=== PATIENT | male | born 1975 | race Caucasian/White ===

== ENCOUNTER 2022-08-04 00:26 | Inpatient (IN) | payer MEDICARE, MEDICAID, SELFPAY ==
[2022-08-04] VITALS (29 sets, daily range): BP systolic 102–155; BP diastolic 53–86; PULSE 111–147; RESP 16–35; TEMP 36.4–38.1; O2SAT 91–99; BMI 34.0; BMI 38.9
--- NOTE | 2022-08-04 | DI.RAD.S_ITS ---
PROCEDURE: XR HIP W PEL IF DONE LT 2V INDICATIONS: OR SURGERY TECHNIQUE: 17 intraoperative views of the hip were acquired. COMPARISON: [facility], [place], XR HIP W PEL IF DONE LT 2V, 08/04/2022, 7:03. FINDINGS/IMPRESSION: Expected postsurgical changes of the left hip status post surgical fixation of previously noted intertrochanteric fracture. Alignment is near anatomic. Hardware appears appropriately positioned without evidence of immediate complication. Dictated by: Abelardo Ramires D.O. on 08/04/2022 at 14:29 Approved by: Abelardo Ramires D.O. on 08/04/2022 at 14:31
--- NOTE | 2022-08-04 | DI.RAD.S_ITS ---
PROCEDURE: XR ELBOW LT 2V INDICATIONS: OR SURGERY TECHNIQUE: 9 intraoperative views of the elbow were acquired. COMPARISON: [facility], [place], XR ELBOW LT 2V, 08/04/2022, 2:26. FINDINGS/IMPRESSION: Intraoperative fixation of the previously dislocated elbow now in near anatomic position. Questionable fracturing of the radial head. Additional calcification along the coronoid process may represent additional fracture. Consider dedicated elbow radiographs status post reduction. Postsurgical changes of the radius and ulna status post remote fracturing. Dictated by: Abelardo Ramires D.O. on 08/04/2022 at 14:31 Approved by: Abelardo Ramires D.O. on 08/04/2022 at 14:33
--- NOTE | 2022-08-04 00:52 | DI.RAD.S_ITS ---
PROCEDURE: XR FOREARM LT 2V INDICATIONS: pain after fall TECHNIQUE: 2 views of the forearm were acquired. COMPARISON: None. FINDINGS: Bones: Posterior dislocation of the elbow, with the radial head and proximal ulna located posterior to the capitellum and trochlea respectively. Small fracture fragment anterior to the elbow is most likely a coronoid process fracture. Postsurgical changes are seen from prior radial and ulnar shaft fracture fixations with intact hardware. Soft tissues: No suspicious soft tissue calcifications or masses. IMPRESSION: Posterior dislocation of the elbow. Suspected coronoid process fracture. Recommend correlation with postreduction images. Approved by: Michael Scott M.D. on 08/04/2022 at 2:18
--- NOTE | 2022-08-04 00:52 | DI.RAD.S_ITS ---
PROCEDURE: XR FEMUR LT MIN 2V INDICATIONS: pain after fall TECHNIQUE: 5 views of the femur were acquired. COMPARISON: None. FINDINGS: Bones: Acute fracture through intertrochanteric region of left proximal femur is seen with superior migration of femoral shaft in relation to femoral head. No other fracture or dislocation. No suspicious bony lesions. Soft tissues: No suspicious soft tissue calcifications or masses. IMPRESSION: Acute displaced left intertrochanteric fracture as above. No significant discrepancies from preliminary reading. Dictated by: Thiago Barahona M.D. on 08/04/2022 at 7:30 Approved by: Thiago Barahona M.D. on 08/04/2022 at 7:30
--- NOTE | 2022-08-04 01:36 | ED.FALL ---
HPI - Fall General Chief Complaint: Fall Stated Complaint: Fall earlier today, L side pain Time Seen by Provider: 08/04/22 00:51 Source: patient and family Mode of arrival: Wheelchair Limitations: no limitations History of Present Illness HPI Narrative: Patient is a 46-year-old male. Has a history of a developmental disorder and also autism. He does ambulate on his own at home. Yesterday sustained a fall where he landed on his left side. There was no loss of consciousness. He is had extreme pain on his left arm and left leg since the time. There was no loss of consciousness. There was an extended period of time trying to get him up off the floor however when they were able to stand him up he got up put any weight on his left side. He did arrive by private vehicle. Patient has developmental difficulties so it is difficult for him to expressed exactly what is going on but he does have pain all down his left arm in his left leg. Related Data Allergies Allergy/AdvReac Type Severity Reaction Status Date / Time No Known Drug Allergies Allergy Verified 08/04/22 01:46 Review of Systems Constitutional Constitutional: Reports system reviewed and no additional complaints, except as documented Musculoskeletal Musculoskeletal: Reports system reviewed and no additional complaints, except as documented Integumentary/Breasts Skin/Breast: Reports system reviewed and no additional complaints, except as documented Hematologic/Lymphatic On Anticoagulants: No Patient History Medical History Autism Hardik-Taybi syndrome Exam Initial Vital Signs Initial Vital Signs: Vital Signs Temperature 98.7 F 08/04/22 00:40 Pulse Rate 126 H 08/04/22 00:40 Respiratory Rate 16 08/04/22 00:40 Blood Pressure 133/75 08/04/22 00:40 Pulse Oximetry 95 08/04/22 00:40 Oxygen Delivery Method Room Air 08/04/22 00:40 Const General: cooperative HENMT Head: normal to inspection and normocephalic Resp Effort & Inspection: normal respiratory effort Auscultation: clear to auscultation bilaterally Cardio Rate: regular rate Rhythm: regular rhythm Skin General: no rashes or lesions noted Neuro General: patient alert and patient awake Extrem Other: Patient with significant discomfort to palpation of his left upper arm and elbow and left forearm and also left wrist. The same for his left hip and left knee. His left ankle is unremarkable. His right upper and lower extremities are unremarkable. Course Orders Ordered: ED Orders 08/04/22 00:52 XR femur LT min 2V Stat XR forearm LT 2V Stat 08/04/22 02:14 XR elbow LT 2V Stat XR wrist LT min 3V Stat 08/04/22 05:00 Basic Metabolic Panel Stat Complete Blood Count AUTO DIFF Stat 08/04/22 06:49 XR hip w pel if done LT 2V Stat Sodium Chloride (Normal Saline 0.9%) 1,000 mls @ 125 mls/hr IV CONT LELAND Discontinued Medications Hydrocodone Bitart/Acetaminophen (Hydrocodone/Acet 5/325 Tablet) 1 tab PO NOW ONE Stop: 08/04/22 01:38 Last Admin: 08/04/22 01:43 Dose: 1 tab Documented By: ANA Propofol (Propofol 200 Mg/20 Ml Vial) 100 mg IV NOW ONE Stop: 08/04/22 03:41 Vital Signs Vital signs: Vital Signs - 8 hr 08/04/22 00:40 Temperature 98.7 F Pulse Rate 126 H Respiratory Rate 16 Blood Pressure 133/75 Pulse Oximetry 95 Oxygen Delivery Method Room Air MDM - Fall Lab Data Attestation: I reviewed the patient's lab results. 08/04/22 05:00 08/04/22 05:00 Labs: Lab Results 08/04/22 08/04/22 Range/Units 05:00 05:00 WBC 28.2 H (4.5-11.0) X10^3/uL RBC 4.95 (4.5-5.9) X10^6/uL Hgb 15.2 (13.5-17.5) g/dL Hct 44.7 (41-53) % MCV 90.3 (80-100) fL MCH 30.7 (26-34) PG MCHC 34.0 (30-36) % RDW 13.8 (11.6-14.8) % Plt Count 244 (150-400) X10^3/uL Neut % (Auto) Not Reportable Lymph % (Auto) Not Reportable [place] % (Auto) Not Reportable Eos % (Auto) Not Reportable Baso % (Auto) Not Reportable Lymph # (Auto) Not Reportable [place] # (Auto) Not Reportable Baso # (Auto) Not Reportable Total Counted 100 Seg Neutrophils % 77.0 H (38-70) % Band Neutrophils % 1.0 L (3-7) % Lymphocytes % (Manual) 19.0 L (25-45) % Monocytes % (Manual) 3.0 (2-11) % Neutrophils # (Manual) 12232 H (9709-3331) /uL RBC Morphology Normal morphology Sodium 138 (137-145) mmol/L Potassium 4.2 (3.4-5.1) mmol/L Chloride 100 (98-107) mmol/L Carbon Dioxide 27 (22-32) mmol/L BUN 13 (9-20) mg/dL Creatinine 0.59 L (0.66-1.25) mg/dL Estimated GFR > 60 (>60) mL/min BUN/Creatinine Ratio 22.0 (6-22) Glucose 119 H (70-100) mg/dL Calcium 9.5 (8.4-10.2) mg/dL Imaging Data Femur X-ray: Radiologist's Impression: PROCEDURE:? XR FEMUR LT MIN 2V ? INDICATIONS:? pain after fall ? TECHNIQUE:? 5 views of the femur were acquired.? ? COMPARISON:? None. ? FINDINGS:? ? Bones:? Acute fracture through intertrochanteric region of left proximal femur is seen with superior migration of femoral shaft in relation to femoral head.? No other fracture or dislocation.? No suspicious bony lesions.? ? Soft tissues:? No suspicious soft tissue calcifications or masses.? ? IMPRESSION:? Acute displaced left intertrochanteric fracture as above. ? No significant discrepancies from preliminary reading.? forearm X-ray: Radiologist's Impression: PROCEDURE:? XR FOREARM LT 2V ? INDICATIONS:? pain after fall ? TECHNIQUE:? 2 views of the forearm were acquired.? ? COMPARISON:? None. ? FINDINGS:? ? Bones:? Posterior dislocation of the elbow, with the radial head and proximal ulna located posterior to the capitellum and trochlea respectively.? Small fracture fragment anterior to the elbow is most likely a coronoid process fracture.? Postsurgical changes are seen from prior radial and ulnar shaft fracture fixations with intact hardware. ? Soft tissues:? No suspicious soft tissue calcifications or masses.? ? IMPRESSION:? Posterior dislocation of the elbow.? Suspected coronoid process fracture.? Recommend correlation with postreduction images. elbow x-ray: Radiologist's Impression: PROCEDURE:? XR ELBOW LT 2V ? INDICATIONS:? pain after fall ? TECHNIQUE:? 2 views of the elbow were acquired.? ? COMPARISON:? None. ? FINDINGS:? ? Bones:? There is prior fixation of proximal radial and ulnar shafts.? Dorsal dislocation at elbow joint is seen.? Cortical irregularity involving radial head is seen suggestive of radial head/neck fracture.? There is also likely fracture involving coronary process of proximal olecranon..? No suspicious bony lesions.? ? Soft tissues:? Large elbow joint effusion.? No suspicious soft tissue calcifications.? ? ? IMPRESSION:? Elbow fracture and dislocation as above. wrist x-ray: Radiologist's Impression: PROCEDURE:? XR WRIST LT MIN 3V ? INDICATIONS: pain after fall ? TECHNIQUE:? 3 views of the wrist were acquired.? ? COMPARISON:? None. ? FINDINGS:? ? Bones:? No fractures or dislocations.? Osteoarthritic changes throughout wrist joints are seen.? No suspicious bony lesions.? ? Soft tissues:? No suspicious soft tissue calcifications.? ? IMPRESSION:? No gross acute left wrist fracture or dislocation.? Left wrist joint osteoarthritis. ? No discrepancies. hip x-ray: Radiologist's Impression: PROCEDURE:? XR HIP W PEL IF DONE LT 2V ? INDICATIONS:? L fem neck fracture ? TECHNIQUE:? AP pelvis with lateral view(s) of the left hip(s).? ? COMPARISON:? None. ? FINDINGS:? ? Bones:? Acute fracture through intertrochanteric region of left proximal femur is seen with superior migration of femoral shaft in relation to femoral head.? No evidence of avascular necrosis of femoral head.? Pelvic ring appears intact.? No suspicious bony lesions.? ? Soft tissues:? The visualized bowel gas pattern is normal.? No suspicious soft tissue calcifications.? ? ? IMPRESSION:? Acute displaced intertrochanteric fracture of left proximal femur as above.? MDM Narrative Medical decision making narrative: Initially very difficult to pinpoint exactly where his discomfort was as he seems to have discomfort all throughout his left arm in his left hip. It was difficult to get him out of the wheelchair into the bed. He required pain medication before we can do this. Once he was in the bed he seemed to be much more comfortable. X-ray show what appears to a left elbow dislocation with associated fracture. He also has a left femoral neck fracture. The plan was to provide sedation and reduction of the left elbow fracture here in the emergency department however we were unable to do so given the amount of patient's and staffing. I discussed the case with Dr. Gordon on-call for Orthopedic surgery came to evaluate the patient in the emergency department in the plan as to take him to operating up to reduce his elbow and also fixes left hip. I then discussed the case with Dr. Carter hospitalist on-call who will admit for further evaluation and treatment as well. Discharge Plan Departure Patient Disposition: Admitted As Inpatient Clinical Impression: Closed fracture of neck of left femur, Dislocation of left elbow Admit Date/Time: 08/04/22 08:16
[2022-08-04] MEDS: HYDROCODONE/ACET 5/325 TABLET 1 TAB PO (01:43)
--- NOTE | 2022-08-04 02:14 | DI.RAD.S_ITS ---
PROCEDURE: XR WRIST LT MIN 3V INDICATIONS: pain after fall TECHNIQUE: 3 views of the wrist were acquired. COMPARISON: None. FINDINGS: Bones: No fractures or dislocations. Osteoarthritic changes throughout wrist joints are seen. No suspicious bony lesions. Soft tissues: No suspicious soft tissue calcifications. IMPRESSION: No gross acute left wrist fracture or dislocation. Left wrist joint osteoarthritis. No discrepancies. Dictated by: Thiago Barahona M.D. on 08/04/2022 at 7:37 Approved by: Thiago Barahona M.D. on 08/04/2022 at 7:41
--- NOTE | 2022-08-04 02:14 | DI.RAD.S_ITS ---
PROCEDURE: XR ELBOW LT 2V INDICATIONS: pain after fall TECHNIQUE: 2 views of the elbow were acquired. COMPARISON: None. FINDINGS: Bones: There is prior fixation of proximal radial and ulnar shafts. Dorsal dislocation at elbow joint is seen. Cortical irregularity involving radial head is seen suggestive of radial head/neck fracture. There is also likely fracture involving coronary process of proximal olecranon.. No suspicious bony lesions. Soft tissues: Large elbow joint effusion. No suspicious soft tissue calcifications. IMPRESSION: Elbow fracture and dislocation as above. Dictated by: Thiago Barahona M.D. on 08/04/2022 at 7:31 Approved by: Thiago Barahona M.D. on 08/04/2022 at 7:36
[2022-08-04 05:11] LABS: Hematocrit 44.7 % (41-53); Hemoglobin 15.2 g/dL (13.5-17.5); Mean Corpuscular Hemoglobin 30.7 PG (26-34); Mean Corpuscular Volume 90.3 fL (80-100); Platelet Count 244 X10^3/uL (150-400); Red Blood Cell Count 4.95 X10^6/uL (4.5-5.9); Red Cell Distribution Width 13.8 % (11.6-14.8); White Blood Cell Count 28.2 X10^3/uL (4.5-11.0)
[2022-08-04 05:12] LABS: Add Manual Diff / Slide Review YES
[2022-08-04 05:24] LABS: Blood Urea Nitrogen 13 mg/dL (9-20); Calcium 9.5 mg/dL (8.4-10.2); Carbon Dioxide 27 mmol/L (22-32); Chloride 100 mmol/L (98-107); Estimated Glomerular Filt Rate > 60 mL/min (>60); Glucose 119 mg/dL (70-100); HEMOLYSIS 17 (0-50); Potassium 4.2 mmol/L (3.4-5.1); Sodium 138 mmol/L (137-145)
[2022-08-04 06:37] LABS: Neutrophils Absolute Manual 21996 /uL (3000-5900); Total Cells Counted 100
[2022-08-04 06:38] LABS: RBC Morphology Normal Morphology
--- NOTE | 2022-08-04 06:49 | DI.RAD.S_ITS ---
PROCEDURE: XR HIP W PEL IF DONE LT 2V INDICATIONS: L fem neck fracture TECHNIQUE: AP pelvis with lateral view(s) of the left hip(s). COMPARISON: None. FINDINGS: Bones: Acute fracture through intertrochanteric region of left proximal femur is seen with superior migration of femoral shaft in relation to femoral head. No evidence of avascular necrosis of femoral head. Pelvic ring appears intact. No suspicious bony lesions. Soft tissues: The visualized bowel gas pattern is normal. No suspicious soft tissue calcifications. IMPRESSION: Acute displaced intertrochanteric fracture of left proximal femur as above. Dictated by: Thiago Barahona M.D. on 08/04/2022 at 7:52 Approved by: Thiago Barahona M.D. on 08/04/2022 at 7:53
--- NOTE | 2022-08-04 08:41 | PC.NURSE ---
first contact with patient [id number]
--- NOTE | 2022-08-04 08:47 | PC.NURSE ---
0815 Pt has strong left radial pulse. left hip fx . left Dorsal pedal pulses positive. pt asked me not to touch it. mom is at bedside.
--- NOTE | 2022-08-04 08:49 | P.HP_ITS ---
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 He lives with his mom in [place]. They were in their trailer when he fell and landed on his left side. He noted the acute onset of severe left-sided pain. He was transported to the emergency room. He was having significant pain into his left hip and was having problems putting weight on his left leg. He also notes significant left arm pain. He has a known history of osteoporosis and fairly small bones. He has a complex left arm history with a history of multiple prior arm fractures and was treated with multiple casts over the years and has also had a previous open reduction internal fixation of his left arm. He had a functional left elbow previously but did have a history of some laxity and double jointed elbows. [facility], [facility] Medical History Autism Venkatesh-Taybi syndrome Meds Home Medications and Allergies Allergies Allergy/AdvReac Type Severity Reaction Status Date / Time No Known Drug Allergies Allergy Verified 08/04/22 01:46 Review of Systems Review of Systems Narrative: He has not had any recent cardiac problems, he did not have any specific problems prior to his fall. He did not strike his head, his mom denies any recent fever cough or other systemic symptoms, he notes pain in the left arm and the left hip but is not having other problems that he knows of. Exam Vital Signs (past 8 hours): - 08/04/22 08:18 Pulse Rate 142 H Pulse Oximetry 94 Oxygen Delivery Method Room Air Narrative Exam Narrative: He is resting comfortably in bed, he has some facial deformity, he is alert appropriate with questions and asked that I do not move his leg or arm, cor is regular rate and rhythm, lungs are clear, abdomen is markedly obese, left arm is in a hyperextended position, there is healed incisions on his forearm, he has deformity of bilateral hands with hyperextension of his hands, he is having moderate to significant pain in his arm and has difficulty complying with range of motion he does have adequate capillary refill in his left fingers and hand wi th a palpable radial pulse, left lower extremity shows an external rotation deformity, skin is intact there is pain with gentle range of motion of the left hip, he says it is too painful to move his toes up and down, there is no significant swelling in his legs Objective Labs 08/04/22 05:00 08/04/22 05:00 Labs: Laboratory Results - last 24 hr 08/04/22 08/04/22 05:00 05:00 WBC 28.2 H RBC 4.95 Hgb 15.2 Hct 44.7 MCV 90.3 MCH 30.7 MCHC 34.0 RDW 13.8 Plt Count 244 Neut % (Auto) Not Reportable Lymph % (Auto) Not Reportable [place] % (Auto) Not Reportable Eos % (Auto) Not Reportable Baso % (Auto) Not Reportable Lymph # (Auto) Not Reportable [place] # (Auto) Not Reportable Baso # (Auto) Not Reportable Total Counted 100 Seg Neutrophils % 77.0 H Band Neutrophils % 1.0 L Lymphocytes % (Manual) 19.0 L Monocytes % (Manual) 3.0 Neutrophils # (Manual) 89023 H RBC Morphology Normal morphology Sodium 138 Potassium 4.2 Chloride 100 Carbon Dioxide 27 BUN 13 Creatinine 0.59 L Estimated GFR > 60 BUN/Creatinine Ratio 22.0 Glucose 119 H Calcium 9.5 left femur and AP pelvis show a left intertrochanteric hip fracture with deformity Left elbow x-rays show a posterior left elbow dislocation with some deformity Left forearm x-rays show retained internal fixation with plates, significant osteoporosis and an atypical appearance of the plates with screws being long and a very small distal bone Assessment & Plan Assessment and plan (1) Dislocation of left elbow: Status: Acute (2) Intertrochanteric fracture of left hip: Status: Acute (3) Osteoporosis: Status: Acute (4) Leukocytosis: Status: Acute Assessment & Plan narrative: I have recommended a closed reduction of his left elbow. We will reduce his elbow and then try and reassess in get a little better radiographs of his forearm and elbow. He may require open reduction internal fixation or further stabilization. He does have a history of some generalized laxity which is e vident in bilateral hands and also his mom notes is a bit of an issue. I have recommended open reduction internal fixation of his left intertrochanteric hip fracture. He has a history of osteoporosis and a relatively small femur. Procedure alternatives risks benefits and complications including but not limited to failure of fixation, failure of bone, nonunion, and potential anesthetic complications. Options risks benefits and complications were discussed in detail.
--- NOTE | 2022-08-04 09:06 | PM.OP.1 ---
Operative Date/Time/Diagnoses Date of procedure: 08/04/22 Time of procedure: 10:00 Pre-op diagnosis: Left elbow dislocation, left intertrochanteric hip fracture, severe osteoporosis Post-op diagnosis: same Procedure & Clinicians Procedure: Closed reduction left elbow Open reduction internal fixation left intertrochanteric hip fracture Same procedure as scheduled: Yes Indications: This is a 46-year-old with multiple medical problems including Hardik-Taybi syndrome, generalized ligamentous laxity, osteoporosis and substantial impaired mobility who fell and sustained a left intertrochanteric hip fracture as well as a left elbow injury. He has a history of multiple injuries to the left upper extremity in the past as a child and has had previous open reduction internal fixation of a both-bone forearm fracture. His x-rays show evidence of left elbow dislocation and a left intertrochanteric hip fracture. He is brought to the operating room for repair as needed. Surgeon: Ling Gordon Underground Drill Operator: Ping Pardo Anesthesia Type: General Operative Notes Findings: Adequate reduction left elbow, Soft bone adequate reduction stable fixation left femur Closure Type: primary Specimen(s): none sent Prosthetic devices, grafts, tissues, transplants, or devices: 4 hole 135 dynamic hip screw Estimated Blood Loss (mL): 250 Blood products transfused: none Procedure in detail: Patient is brought to the operating room and underwent induction of a general anesthesia. A time-out was performed. He was given 2 g of IV Ancef. C-arm was brought in. He underwent a closed reduction of his left elbow. I also carefully scanned his left forearm. The elbow was reduced without difficulty. He has a very abnormal forearm with some component of a synostosis of his radius and ulna and retained plates and thin bone. The elbow reduction looked acceptable. Did have a little bit of instability with attempted extension. He was placed in a sugar-tong splint. An acceptable reduction was achieved. He was placed in a left arm splint. He was carefully transferred to the fracture table. His left arm was meticulously positioned across his chest and he was carefully positioned on the OR table. A reduction maneuver was performed and confirmed with fluoroscopy. Left lower extremity was prepped and draped in standard sterile fashion. Lateral skin incision was made dissection was carried out through skin and subcutaneous tissues. Fracture was meticulously reduced. Incision was made in the tensor fascia dheeraj, the vastus lateralis fascia was incised and the muscles retracted anteriorly. A guide was placed the femur a pin was placed in the femoral head. It was placed slightly inferior and posterior. There was good quality bone. It was carefully measured. It was then reamed, the lag screw was inserted and a 4 hole side plate was placed. I put in the compression screw and tightened it and decided to leave in the compression screw. It was fixed with standard AO technique. Adequate the position of the fixation and fracture was confirmed fluoroscopically. There was some moderate bleeding during surgery and we opened an Aquamantys in order to have good hemostasis. The wound was meticulously irrigated with normal saline. Marcaine and Exparel were carefully injected. The wound was closed with interrupted Vicryl interrupted sutures, barbed running stitches and skin reagan. Patient tolerated the procedure well. He was transferred to recovery room in satisfactory condition. Complications: none Post-operative Condition: stable Disposition: Acute Care Plan for aftercare: Left arm sling, nonweightbearing left upper extremity, 100 lbs. left lower extremity, will likely need rehab at [facility].
--- NOTE | 2022-08-04 09:16 | DI.RAD.S_ITS ---
PROCEDURE: XR CHEST 1V INDICATIONS: fall w/hip fx, leukocytosis TECHNIQUE: One view of the chest was acquired. COMPARISON: None. FINDINGS: Exam limited by obliquity in positioning. Surgical changes and devices: None. Overlying EKG wires. Lungs and pleura: Low lung volumes causing prominence of the bronchovascular markings. Within limits of this examination there is no pneumothorax or large volume pleural effusion. Linear density at the right mid lung likely representing atelectasis/scarring. Mediastinum: Mediastinal contours appear normal. Heart size is normal. Bones and chest wall: No suspicious bony lesions. Dextrocurvature of the thoracic spine. No definite acute osseous abnormality within limits of this exam. Overlying soft tissues appear unremarkable. IMPRESSION: Within limits of this examination there are low lung volumes causing prominence of the bronchovascular markings with likely small region of atelectasis/scarring of the right mid lung. Dictated by: Abelardo Ramires D.O. on 08/04/2022 at 8:35 Approved by: Abelardo Ramires D.O. on 08/04/2022 at 8:38
[2022-08-04] MEDS: LACTATED RINGERS 1,000 ML 42 ML IV (09:33)
[2022-08-04] MEDS: MORPHINE 2 MG/ML INJ IV (09:57)
[2022-08-04] MEDS: LIDOCAINE 2% (GLYDO) 6 ML GEL TOP (09:58)
[2022-08-04 10:22] LABS: Bilirubin Urine UA NEGATIVE (NEGATIVE); Color Urine UA YELLOW; Glucose Urine UA NEGATIVE (Negative); Ketones Urine UA NEGATIVE (NEGATIVE); Leukocyte Esterase Urine UA NEGATIVE (NEGATIVE); Nitrite Urine UA NEGATIVE (Negative); Occult Blood Urine UA NEGATIVE (Negative); Protein Urine UA TRACE (Negative); Specific Gravity Urine UA 1.015 (1.000-1.035); Urobilinogen Urine UA 0.2 E.U./dL (0.2)
[2022-08-04 10:28] LABS: Amorphous Sediment Urine 2+; Appearance Urine UA CLOUDY; Bacteria Urine Many (>30); Culture Indicated Urine Specimen Cultured; Mucus Urine 1+ (Negative); RBC Urine None Seen (0-5/HPF); Squamous Epithelial Cell Urine 1-5 /HPF (0-5/HPF); WBC Urine 5-10/HPF (0-5/HPF)
[2022-08-04] MEDS: CEFAZOLIN 2 GM/100 ML PREMIX 100 ML IV ×2 (11:09→19:44)
--- NOTE | 2022-08-04 12:12 | SUR.OPER ---
Supine on padded [place] table with bilateral legs secured in padded positioning boots and suspended in positioning spars, operative leg in traction per surgeon. Head on one pillow. Arm on non-operative side secured on padded armboard <90 degrees abduction. Arm on operative side padded and resting across chest then secured with tape over sheet. Padded perineal post in place per surgeon.
--- NOTE | 2022-08-04 12:20 | SUR.OPER ---
Addendum entered by Darrion Emanuel R.N. 08/04/22 12:21: pt was presenting heart rhythm in ER that required assessment from hospitalist causing delay Original Note: Supine on padded [place] table with bilateral legs secured in padded positioning boots and suspended in positioning spars, operative leg in traction per surgeon. Head on one pillow. Arm on non-operative side secured on padded armboard <90 degrees abduction. Arm on operative side padded and resting across chest then secured with tape over sheet. Padded perineal post in place per surgeon.
[2022-08-04] MEDS: BUPIVACAINE 0.25% (PF) 30 ML, EPINEPHrine 0.15 MG INJ (12:29)
[2022-08-04] MEDS: BUPIVACAINE LIPOSOME 266 MG/20 ML VIAL INJ (12:30)
--- NOTE | 2022-08-04 13:24 | DI.RAD.S_ITS ---
PROCEDURE: XR HIP W PEL IF DONE LT 2V INDICATIONS: Fracture left hip TECHNIQUE: AP pelvis and lateral view of the left hip acquired. COMPARISON: [facility], CR, XR HIP W PEL IF DONE LT 2V, 08/04/2022, 7:03. [facility], CR, XR ELBOW LT 2V, 08/04/2022, 11:10. [facility], CR, XR HIP W PEL IF DONE LT 2V, 08/04/2022, 11:42. FINDINGS: Bones: Patient is status post ORIF of the left hip status post intertrochanteric hip fracture. Alignment is near anatomic. Expected postsurgical changes without evidence of an immediate hardware complication. Soft tissues: Overlying postoperative changes are noted. This includes soft tissue swelling and subcutaneous gas. Arango catheter noted. IMPRESSION: Postsurgical changes of the left hip without evidence of immediate hardware complication. Dictated by: Abelardo Ramires D.O. on 08/04/2022 at 13:13 Approved by: Abelardo Raimres D.O. on 08/04/2022 at 13:15
[2022-08-04] MEDS: ACETAMINOPHEN IV 1,000 MG/100 ML VIAL 400 MG IV (13:43)
--- NOTE | 2022-08-04 13:45 | PM.HP.1 ---
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 Patient was walking into the kitchen last night. Is a baby gate set up to keep the dog out of the trash, and he misstepped through the gate, fell over the gait, and ended up on the kitchen floor. Due to pain in his left side, family was unable to get him for at least 3 hours. No loss of consciousness. Patient was complaining of pain on the left side. He was brought into the emergency department, with labs notable for a white blood cell count of 28.2, creatinine 0.59, normal electrolytes. Imaging revealed an acute displaced left intertrochanteric fracture, posterior dislocation of the left elbow, and suspected coronoid process fracture. A large elbow joint effusion was noted. No wrist fracture was noted. Patient was noted to be tachycardic in the apartment but was very anxious and uncomfortable. He did receive a dose of hydrocodone 5 mg, with reported good effect. Admission was recommended. Patient currently complains of having significant pain. He is very anxious. He is asking to be left alone so he can take a nap. He is a difficult historian. Mom is at bedside and notes no recent ill symptoms. Specifically, she denies any fevers, chills, nausea or vomiting, no complaints of upper respiratory infection symptoms. No diarrhea. She states he was at his usual baseline health yesterday. [facility] Medical History Autism Hardik-Taybi syndrome Social History household members: family Smoking Status: Never smoker alcohol intake: never Comment: Additional past medical history: Previous surgeries include undescended testicle surgery, previous arm fractures requiring surgical repair in the Biologic family history is not well known Meds Home Medications and Allergies Home Medications Medication Instructions Recorded Confirmed Type gzatizo-dwnhtqeih-styn 08/04/22 History cetirizine 10 mg capsule (Zyrtec) mg 08/04/22 History cholecalciferol (vitamin D3) 50 08/04/22 History mcg (2,000 unit) tablet (Vitamin D3) Allergies Allergy/AdvReac Type Severity Reaction Status Date / Time No Known Drug Allergies Allergy Verified 08/04/22 10:40 Review of Systems Review of Systems Narrative: Unable to obtain review of systems secondary to patient's developmental delay Exam Vital Signs (past 8 hours): - 08/04/22 08:18 08/04/22 08:30 08/04/22 08:30 Temperature Pulse Rate 142 H 143 H Respiratory Rate 20 Blood Pressure 137/64 Pulse Oximetry 94 96 Oxygen Delivery Method Room Air Oxygen Flow Rate 08/04/22 09:00 08/04/22 09:00 08/04/22 09:30 Temperature Pulse Rate 140 H Respiratory Rate Blood Pressure 124/78 151/64 H Pulse Oximetry 93 Oxygen Delivery Method Oxygen Flow Rate 08/04/22 09:30 08/04/22 10:00 08/04/22 10:00 Temperature Pulse Rate 147 H 132 H Respiratory Rate 35 H 29 H Blood Pressure 155/67 H Pulse Oximetry 93 96 Oxygen Delivery Method Room Air Oxygen Flow Rate 08/04/22 10:41 08/04/22 10:30 08/04/22 10:30 Temperature 100.6 F H Pulse Rate 145 H 131 H Respiratory Rate 16 32 H Blood Pressure 128/71 134/62 Pulse Oximetry 93 92 Oxygen Delivery Method Room Air Room Air Oxygen Flow Rate 08/04/22 13:26 08/04/22 13:30 08/04/22 13:35 Temperature 98.7 F Pulse Rate 130 H 123 H 119 H Respiratory Rate 22 16 16 Blood Pressure 127/59 L 131/71 117/61 Pulse Oximetry 91 98 98 Oxygen Delivery Method Room Air Simple Mask Simple Mask Oxygen Flow Rate 5 5 08/04/22 13:37 Temperature Pulse Rate 121 H Respiratory Rate 20 Blood Pressure 113/61 Pulse Oximetry 96 Oxygen Delivery Method Simple Mask Oxygen Flow Rate 5 Oxygen Delivery Method Simple Mask Oxygen Flow Rate 5 Narrative Exam Narrative: GEN: Adult male, Alert and oriented x1, very anxious, appears uncomfortable HEENT: Normocephalic, face symmetric, pupils equal round reactive to light, extraocular movements intact, sclerae anicteric, conjunctiva clear, significant discharge noted to the bilateral eyes, nares patent, dentition is fair, difficult to obtain a full exam due to patient being somewhat uncooperative with exam NECK: Supple, no lymphadenopathy, thyroid without visible enlargement or nodularity CHEST: Respiratory excursions symmetric, clear to auscultation bilaterally CV: Tachycardic with regular rhythm, no murmurs, rubs, gallops, PMI difficult to palpate ABD: Soft, nontender, nondistended, bowel sounds present in all 4 quadrants, no organomegaly or masses appreciated EXTR: Warm, well perfused, no clubbing/cyanosis/edema SKIN: Warm and dry, without rash NEURO: Alert and oriented x1, appears grossly normal PSYCH: anxious and irritable Objective Labs 08/04/22 05:00 08/04/22 05:00 Labs: Laboratory Results - last 24 hr 08/04/22 08/04/22 08/04/22 05:00 05:00 10:10 WBC 28.2 H RBC 4.95 Hgb 15.2 Hct 44.7 MCV 90.3 MCH 30.7 MCHC 34.0 RDW 13.8 Plt Count 244 Neut % (Auto) Not Reportable Lymph % (Auto) Not Reportable [place] % (Auto) Not Reportable Eos % (Auto) Not Reportable Baso % (Auto) Not Reportable Lymph # (Auto) Not Reportable Carter # (Auto) Not Reportable Baso # (Auto) Not Reportable Total Counted 100 Seg Neutrophils % 77.0 H Band Neutrophils % 1.0 L Lymphocytes % (Manual) 19.0 L Monocytes % (Manual) 3.0 Neutrophils # (Manual) 32712 H RBC Morphology Normal morphology Sodium 138 Potassium 4.2 Chloride 100 Carbon Dioxide 27 BUN 13 Creatinine 0.59 L Estimated GFR > 60 BUN/Creatinine Ratio 22.0 Glucose 119 H Calcium 9.5 Urine Color Yellow Urine Appearance Cloudy Urine pH 8.0 Ur Specific [place] 1.015 Urine Protein Trace H Urine Glucose (UA) Negative Urine Ketones Negative Urine Occult Blood Negative Urine Nitrate Negative Urine Bilirubin Negative Urine Urobilinogen 0.2 Ur Leukocyte Esterase Negative Urine RBC None seen Urine WBC 5-10/hpf H Ur Squamous Epith Cells 1-5 /hpf Amorphous Sediment 2+ Urine Bacteria Many (>30) H Urine Mucus 1+ H Ur Culture Indicated? Specimen cultured Assessment & Plan Assessment & Plan narrative: 1. Acute displaced left intertrochanteric fracture after mechanical fall Patient is being admitted for further operative intervention. Dr. Ling Gordon has kindly agreed to consult and is taking the patient to the operating room later this morning. 2. Left elbow fracture and dislocation Plan is for reduction in the operating room. Patient is too anxious and uncooperative for bedside reduction. 3. Mechanical fall No syncopal or presyncopal symptoms to raise concern for underlying etiology. 4. Sinus tachycardia Suspect this is secondary to pain and anxiety. Morphine 2 mg IV given and his heart rate improved. EKG showed sinus tach. 5. Leukocytosis May be reactive secondary to his acute injury and prolonged downtime. Could also occult infection. Will check a chest x-ray and UA with culture. No evidence of a compartment syndrome at this time. Will monitor. As noted, mother reports he has been at his baseline health and feeling well prior to his fall. 6. Hardik-Taybi syndrome Patient's mom reports he does not have any cardiac or renal issues secondary to his genetic syndrome. He does have short stature, intellectual disability, distinctive facial features, and eye abnormalities. 7. Autism Patient's mother reports he does get anxious with medical interventions. He also does not like to be touched. We will be mindful of that with ongoing interactions. 8. Code status Full Prophylaxis Chemical prophylaxis deferred in the setting of planned surgical intervention Disposition Admit to acute care Surrogate decision maker: Patient's mother, Bibi Vo
[2022-08-04] MEDS: LACTATED RINGERS 1,000 ML 100 ML IV ×2 (14:30→19:44)
--- NOTE | 2022-08-04 16:28 | PC.NURSE ---
Addendum entered by Ethan Gutierrez R.N. 08/04/22 18:44: Pt responding, opening eyes but quickly falling back to sleep. Family attentive at bedside. Original Note: Pt arrived [place] home by private car to the ED and then via OR came to ACU. Mom attentive at bedside. Pt appears with simple mask at 3 liters sating 88-94%. LR 100cc/hr Sling left arm. Left lower extremity surgical site. VSS. continuous pulse oximetry. Pt rouses but is sound asleep and mom prefers we disrturb him as litte as possible.See admission charting.
[2022-08-05] VITALS (15 sets, daily range): BP systolic 107–123; BP diastolic 53–61; PULSE 114–149; RESP 17–20; TEMP 36.9–38.2; O2SAT 93–97
--- NOTE | 2022-08-05 | DI.CT.S_ITS ---
PROCEDURE: CT ELBOW LEFT WITHOUT CON INDICATIONS: Status post level fracture and dislocation status post relocation. TECHNIQUE: Noncontrast 1-1.5 mm axial sections were acquired through the elbow joint, with coronal and sagittal reformats. COMPARISON: [facility], CR, XR ELBOW LT 2V, 08/04/2022, 2:26. [facility], CR, XR ELBOW LT 2V, 08/04/2022, 11:10. FINDINGS: Image quality: Extremely limited given significant mottling. Overlying splint material. Bones: Postsurgical changes of the radial and ulnar diaphyses limited in evaluation given beam hardening and streak artifact. Alignment appears anatomic. Mildly displaced fractures along the anterior aspect of the radial head as well as the coronoid process and sublime tubercle of the ulna. Punctate calcifications noted within the ulnotrochlear articulation. Soft tissues: Limited in evaluation. There is likely a large joint effusion and soft tissue swelling of the posterior elbow. IMPRESSION: Limited exam. Mildly displaced fractures of the radial head as well as the coronoid process and sublime tubercle. Punctate calcifications within the ulnotrochlear articulation. Dictated by: Abelardo Ramires D.O. on 08/05/2022 at 13:43 Approved by: Abelardo Ramires D.O. on 08/05/2022 at 13:51
[2022-08-05] MEDS: CEFAZOLIN 2 GM/100 ML PREMIX 100 ML IV (02:34)
--- NOTE | 2022-08-05 02:35 | PC.NURSE ---
Addendum entered by Stella Gordon R.N. 08/05/22 07:46: Spoke to Dr. Carter this am in regards patients HR being elevated all night despite hydromorphone given IVP twice and pt sleeping in the bed. HR now up to the 150's. Pt still sedated from the surgery and requiring 3 L of oxygen. According to mom pt doesn't appeared to be in any distress. Due to pt history of autism, it has been hard to assess patient since he mainly answers NO to all my question. Report given to [facility] nurse Janice. Addendum entered by Stella Gordon R.N. 08/05/22 06:40: Pt has gotten 2doses of hydromorphone IVP twice and heart rate comes down [id number]. Original Note: During report at shift change was told that Pt. was tachycardid.Throughout the shift pt HR 130-140, pt and mom denied anypain. Bp WN. Pt has declined all routine medications by mouth.
[2022-08-05] MEDS: HYDROMORPHONE 0.5 MG INJ IV ×2 (02:50→05:23)
[2022-08-05 05:36] LABS: Hematocrit 39.4 % (41-53); Hemoglobin 13.4 g/dL (13.5-17.5); Mean Corpuscular Hemoglobin 30.5 PG (26-34); Mean Corpuscular Volume 89.9 fL (80-100); Platelet Count 223 X10^3/uL (150-400); Red Blood Cell Count 4.39 X10^6/uL (4.5-5.9); Red Cell Distribution Width 13.8 % (11.6-14.8); White Blood Cell Count 25.1 X10^3/uL (4.5-11.0)
[2022-08-05 05:37] LABS: Add Manual Diff / Slide Review YES
[2022-08-05 05:52] LABS: BUN Creatinine Ratio 13.6 (6-22); Blood Urea Nitrogen 9 mg/dL (9-20); Calcium 8.5 mg/dL (8.4-10.2); Carbon Dioxide 27 mmol/L (22-32); Chloride 99 mmol/L (98-107); Estimated Glomerular Filt Rate > 60 mL/min (>60); Glucose 131 mg/dL (70-100); HEMOLYSIS < 15 (0-50); Potassium 4.1 mmol/L (3.4-5.1); Sodium 133 mmol/L (137-145)
[2022-08-05] MEDS: LACTATED RINGERS 1,000 ML 100 ML IV (06:25)
[2022-08-05 07:14] LABS: Neutrophils Absolute Manual 17821 /uL (3000-5900); Total Cells Counted 100
[2022-08-05 07:15] LABS: RBC Morphology Normal Morphology
--- NOTE | 2022-08-05 08:29 | DI.CT.S_ITS ---
PROCEDURE: CT ANGIO CHEST PE PROTOCOL INDICATIONS: tachycardia, low-grade fever TECHNIQUE: After the administration of intravenous contrast, 2 mm thick sections acquired from the pulmonary apices to the posterior costophrenic angles. 3-dimensional maximum intensity projection (MIP) coronal and sagittal reformats were then acquired through the thorax. For radiation dose reduction, the following was used: automated exposure control, adjustment of mA and/or kV according to patient size. COMPARISON: [facility], CR, XR CHEST 1V, 08/04/2022, 9:18. FINDINGS: Image quality: Excellent. Pulmonary arteries: Pulmonary arteries are normal in size, and demonstrate no intraluminal filling defects to suggest central pulmonary embolism. Evaluation of the subsegmental vessels is however limited given opacification. Lungs and pleura: Low lung volumes with atelectasis of the lower lobes bilaterally. More focal consolidation of the posterior aspect of the left lower lobe. No pleural effusions or pneumothorax. Central and peripheral airways are patent. Mediastinum: Heart size is normal, without pericardial effusion. Coronary vascular calcifications. No mediastinal or hilar adenopathy. Thoracic aorta is normal in caliber and enhancement. Small hiatal hernia. Mild thickening of the distal esophagus. Bones and chest wall: No suspicious bony lesions. Ribs and thoracic spine appear intact throughout. Severe dextroscoliotic curvature of the thoracolumbar spine with resultant changes of the thoracic osseous structures. Degenerative changes of the shoulders and spine. Thyroid gland is unremarkable. No axillary or supraclavicular adenopathy. Abdomen: Visualized upper abdominal solid organs appear normal in the early arterial phase of enhancement. IMPRESSION: Left lower lobe opacity concerning for pneumonia in the correct clinical setting. This is superimposed on bilateral lower lobe atelectasis. No pulmonary embolus to the subsegmental level. Small hiatal hernia with mild thickening of the distal esophagus. Recommend clinical correlation for reflux. Dictated by: Abelardo Ramires D.O. on 08/05/2022 at 10:29 Approved by: Abelardo Ramires D.O. on 08/05/2022 at 10:35
[2022-08-05] MEDS: ACETAMINOPHEN 325 MG TABLET 650 MG PO ×3 (09:07→21:00)
--- NOTE | 2022-08-05 09:07 | P.PN_ITS ---
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 He is now post-op from repair of the left hip and elbow reduction. ? Patient's mother and brother are at bedside, another brother is on speaker phone from [place]. Dr. Gordon presented to bedside and advised that a CT would be done of the left arm to further evaluate his elbow. Patient has ongoing tachycardia overnight. shift nurse manager nurse advised that she had difficulty trying to get oral medications interim but notes both times he received IV Dilaudid his heart rate did come down rather dramatically. Currently, he complains of pain in his hip. He denies any arm pain. No abdominal pain. He reports he is not hungry but is feeling he could swallow some medications. Family expresses concern that he will be difficult to motivate to get up and out of bed due to pain and his developmental delays. Exam Vital Signs (past 8 hours): - 08/04/22 13:26 08/04/22 13:30 08/04/22 13:35 Temperature 98.7 F Pulse Rate 130 H 123 H 119 H Respiratory Rate 22 16 16 Blood Pressure 127/59 L 131/71 117/61 Pulse Oximetry 91 98 98 Oxygen Delivery Method Room Air Simple Mask Simple Mask Oxygen Flow Rate 5 5 Fraction of Inspired Oxygen 08/04/22 13:37 08/04/22 13:41 08/04/22 13:46 Temperature Pulse Rate 121 H 122 H 120 H Respiratory Rate 20 21 24 Blood Pressure 113/61 125/86 131/73 Pulse Oximetry 96 97 96 Oxygen Delivery Method Simple Mask Simple Mask Room Air Oxygen Flow Rate 5 5 Fraction of Inspired Oxygen 08/04/22 13:56 08/04/22 14:02 08/04/22 14:07 Temperature Pulse Rate 118 H 121 H 119 H Respiratory Rate 24 21 16 Blood Pressure 130/63 139/69 133/59 L Pulse Oximetry 97 97 98 Oxygen Delivery Method Simple Mask Simple Mask Simple Mask Oxygen Flow Rate 5 5 5 Fraction of Inspired Oxygen 08/04/22 14:12 08/04/22 14:30 08/04/22 14:43 Temperature 98 F Pulse Rate 118 H 113 H Respiratory Rate 18 17 Blood Pressure 140/53 L 128/65 Pulse Oximetry 97 95 92 Oxygen Delivery Method Simple Mask Nasal Cannula Oxygen Flow Rate 5 2 3 Fraction of Inspired Oxygen 08/04/22 15:00 08/04/22 15:30 08/04/22 16:30 Temperature 99.6 F 98.9 F 98.8 F Pulse Rate 111 H 115 H 116 H Respiratory Rate 18 18 16 Blood Pressure 104/55 L 102/60 131/70 Pulse Oximetry 94 95 95 Oxygen Delivery Method Oxygen Flow Rate 3 3 3 Fraction of Inspired Oxygen 08/04/22 17:25 08/04/22 18:35 08/04/22 17:30 Temperature 99 F Pulse Rate 113 H Respiratory Rate 16 Blood Pressure 111/66 Pulse Oximetry 95 94 96 Oxygen Delivery Method Nasal Cannula Simple Mask Oxygen Flow Rate 3 3 3 Fraction of Inspired Oxygen 32 Fraction of Inspired Oxygen 32 SaO2/FiO2 Ratio 296 Oxygen Delivery Method Simple Mask Oxygen Flow Rate 3 Narrative Exam Narrative: GEN:? Adult male, Alert and oriented x1-2, appears uncomfortable, less anxious HEENT:? Normocephalic, face symmetric CHEST:? Respiratory excursions symmetric, clear to auscultation bilaterally in the anterior lung ojeda, face mask in place at 6 L CV:? Tachycardic with regular rhythm, no murmurs, rubs, gallops, PMI difficult to palpate ABD:? Soft, nontender, nondistended, bowel sounds present in all 4 quadrants, body habitus limits exam EXTR:? Warm, well perfused, no clubbing/cyanosis/edema, small amount of bruising to the left 2nd and 3rd toes, no significant tenderness with movement SKIN:? Warm and dry, without rash NEURO:? Alert and oriented x1-2, appears grossly intact PSYCH: More cooperative overall today Objective Labs 08/05/22 05:05 08/05/22 05:05 Labs: Laboratory Results - last 24 hr 08/04/22 08/04/22 08/04/22 05:00 05:00 10:10 WBC 28.2 H RBC 4.95 Hgb 15.2 Hct 44.7 MCV 90.3 MCH 30.7 MCHC 34.0 RDW 13.8 Plt Count 244 Neut % (Auto) Not Reportable Lymph % (Auto) Not Reportable [place] % (Auto) Not Reportable Eos % (Auto) Not Reportable Baso % (Auto) Not Reportable Lymph # (Auto) Not Reportable [place] # (Auto) Not Reportable Baso # (Auto) Not Reportable Total Counted 100 Seg Neutrophils % 77.0 H Band Neutrophils % 1.0 L Lymphocytes % (Manual) 19.0 L Monocytes % (Manual) 3.0 Neutrophils # (Manual) 06406 H RBC Morphology Normal morphology Sodium 138 Potassium 4.2 Chloride 100 Carbon Dioxide 27 BUN 13 Creatinine 0.59 L Estimated GFR > 60 BUN/Creatinine Ratio 22.0 Glucose 119 H Calcium 9.5 Urine Color Yellow Urine Appearance Cloudy Urine pH 8.0 Ur Specific [place] 1.015 Urine Protein Trace H Urine Glucose (UA) Negative Urine Ketones Negative Urine Occult Blood Negative Urine Nitrate Negative Urine Bilirubin Negative Urine Urobilinogen 0.2 Ur Leukocyte Esterase Negative Urine RBC None seen Urine WBC 5-10/hpf H Ur Squamous Epith Cells 1-5 /hpf Amorphous Sediment 2+ Urine Bacteria Many (>30) H Urine Mucus 1+ H Ur Culture Indicated? Specimen cultured [facility] Medical History Autism Hardik-Taybi syndrome Social History household members: family Smoking Status: Never smoker alcohol intake: never Assessment & Plan Assessment & Plan narrative: 1. Tachycardia Patient has had persistent tachycardia overnight. I do suspect some component is physiologic from pain. However, I would expect his tachycardia to have improved overall after surgery. As he did have a prolonged downtime, has persistent tachycardia and some hypoxia, will do a CTA to rule out PE. 2. Sinus tachycardia Suspect this is secondary to pain and anxiety.? Possibly a component of infection as there was some bacteria in his urine. Waiting urine culture. I have added IV Rocephin for now. 3. Leukocytosis May be reactive secondary to his acute injury and prolonged downtime.? White blood cell count is down from 28-25. As it did not come down significantly, there is increasing concern for occult infection. Chest x-ray revealed no acute findings. He did have some bacteriuria. Culture pending. As noted above, adding IV Rocephin today. No evidence of a compartment syndrome at this time.? Will monitor.? As noted, mother reports he has been at his baseline health and feeling well prior to his fall. 4. Acute displaced left intertrochanteric fracture after mechanical fall Postoperative day 1 from ORIF. He is having significant discomfort. Will give Tylenol, oxycodone, and ibuprofen this morning and work on more aggressive oral pain management. Pending therapy evaluations. I did discuss with family that providing rewards for his participation in therapies may be the best option to get his adherence overall. They agree. 5. Left elbow fracture and dislocation Status post closed reduction of the left elbow. Dr. Gordon is obtaining a CT today to reassess. 6. Mechanical fall No syncopal or presyncopal symptoms to raise concern for underlying etiology. 7. Hardik-Taybi syndrome Patient's mom reports he does not have any cardiac or renal issues secondary to his genetic syndrome.? He does have short stature, intellectual disability, distinctive facial features, and eye abnormalities. If his tachycardia persi sts, will obtain an echocardiogram to rule out unidentified cardiac issues 8. Autism Patient's mother reports he does get anxious with medical interventions.? He also does not like to be touched.? We will be mindful of that with ongoing interactions. As noted above, will work on rewards to encourage him to participate in care. Code status Full Prophylaxis Start Lovenox. Disposition Continue working on pain management, mobility, and a dispo plan Surrogate decision maker:? Patient's mother, Bibi Vo El VTE Deep Vein Thrombosis/Pulmonary Embolism Present on Admission: No
[2022-08-05] MEDS: OXYCODONE IR 5 MG TABLET PO ×2 (09:08→16:51)
[2022-08-05] MEDS: IBUPROFEN 400 MG TABLET PO ×3 (09:08→19:38)
[2022-08-05] MEDS: cefTRIAXone 1,000 MG in SODIUM CHLORIDE 0.9% 100 ML 200 MG IV (09:23)
[2022-08-05] MEDS: SODIUM CHLORIDE 0.9% 1,000 ML 125 ML IV ×2 (09:24→21:01)
--- NOTE | 2022-08-05 09:47 | PM.PNPO.1 ---
Subjective Subjective Interval history: He was stable overnight. He is still having some ongoing pain. He really did not mobilize with therapy yesterday. He does not note significant shortness of breath but there is slight concern about some congestion. Exam Vital Signs (past 8 hours): - 08/05/22 05:23 08/05/22 05:32 08/05/22 02:00 Temperature 99.9 F H Pulse Rate 148 H 131 H Respiratory Rate 20 Blood Pressure 118/58 L Pulse Oximetry 95 95 96 Oxygen Delivery Method Oximask Oxygen Flow Rate 3 3 3 08/05/22 05:41 08/05/22 05:46 08/05/22 08:48 Temperature 100.7 F H Pulse Rate 127 H 149 H Respiratory Rate 18 Blood Pressure 123/61 Pulse Oximetry 95 94 Oxygen Delivery Method Oximask Oxygen Flow Rate 3 3 08/05/22 08:59 Temperature Pulse Rate Respiratory Rate Blood Pressure Pulse Oximetry 96 Oxygen Delivery Method Simple Mask Oxygen Flow Rate 6 Fraction of Inspired Oxygen 32 SaO2/FiO2 Ratio 296 Oxygen Delivery Method Simple Mask Oxygen Flow Rate 6 Narrative Exam Narrative: He is resting comfortably in bed he is conversant with the medicine doctor who is also in the room, his dressings intact on his left hip does have some pain with attempted gentle range of motion in his hip his left arm splint is intact he has adequate capillary refill in his fingers Objective Labs 08/05/22 05:05 08/05/22 05:05 Labs: Laboratory Results - last 24 hr 08/04/22 08/05/22 08/05/22 10:10 05:05 05:05 WBC 25.1 H RBC 4.39 L Hgb 13.4 L Hct 39.4 L MCV 89.9 MCH 30.5 MCHC 34.0 RDW 13.8 Plt Count 223 Neut % (Auto) Not Reportable Lymph % (Auto) Not Reportable [place] % (Auto) Not Reportable Eos % (Auto) Not Reportable Baso % (Auto) Not Reportable Lymph # (Auto) Not Reportable [place] # (Auto) Not Reportable Baso # (Auto) Not Reportable Total Counted 100 Seg Neutrophils % 71.0 H Lymphocytes % (Manual) 22.0 L Monocytes % (Manual) 7.0 Neutrophils # (Manual) 24893 H RBC Morphology Normal morphology Sodium 133 L Potassium 4.1 Chloride 99 Carbon Dioxide 27 BUN 9 Creatinine 0.66 Estimated GFR > 60 BUN/Creatinine Ratio 13.6 Glucose 131 H Calcium 8.5 Urine Color Yellow Urine Appearance Cloudy Urine pH 8.0 Ur Specific [place] 1.015 Urine Protein Trace H Urine Glucose (UA) Negative Urine Ketones Negative Urine Occult Blood Negative Urine Nitrate Negative Urine Bilirubin Negative Urine Urobilinogen 0.2 Ur Leukocyte Esterase Negative Urine RBC None seen Urine WBC 5-10/hpf H Ur Squamous Epith Cells 1-5 /hpf Amorphous Sediment 2+ Urine Bacteria Many (>30) H Urine Mucus 1+ H Ur Culture Indicated? Specimen cultured [facility] Medical History Autism Hardik-Taybi syndrome Social History household members: family Smoking Status: Never smoker alcohol intake: never Assessment & Plan Post-op Postoperative Procedures: Procedures Operation Date: 08/04/22 09:30 Actual Procedure Side Surgeon p ORIF Hip DHS Left Ling Gordon MD s closed reduction Elbow Fracture Left Ling Gordon MD Postoperative day: 1 Postoperative status: marginal pain control Postoperative status narrative: He is uncomfortable postoperatively. He is still tachycardic and has a high white count. He underwent a left elbow closed reduction. Does have some generalized ligamentous laxity secondary to his syndrome. I have recommended we get a CT scan of his left elbow today has he has underlying bony abnormality and to reassess his alignment. He can be mobilized with physical therapy partial weight-bearing on the left lower extremity and possibly with a quad cane or platform walker. He is being worked up for his high white count with a CT scan of his chest to rule out a PE. Quality VTE Deep Vein Thrombosis/Pulmonary Embolism Present on Admission: No
--- NOTE | 2022-08-05 12:07 | CM.DANOTE ---
Initial Discharge Assessment Note: Case reviewed, met with family-- patient's mother Bibi Mcduffie and brother Patricio. Patient engaged with RN. 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 Minimally verbal to staff. He had a fall at home fractured hip and dislocation of elbow. Yesterday he underwent an ORIF of L hip and reduction of L elbow. He has not had PT yet. Elevated WBC, imaging ordered to find source. Patient lives in a mobile home park in [place] with his mom Bibi Mcduffie; his brother is the accounts manager of the park and lives down the street. Very supportive family. He was adopted at age 3 by Froy and her at the time. They wanted to adopt a handicapped child. Patient is developmentally delayed and watches tv a lot during day, [address], game shows, etc. He is afraid of water (hypersensitive skin) so Froy helps him bathe. In general, he does not like to be touched. There is a wheel chair, walker and wheelchair ramp available in home but patient had been able to walk without. He is independent in most ADLs and family provides meals and home management, transportation, etc. Discussed SNF placement with family when ready for discharge. He will need more help and therapy which could be a challenge in light of not liking to be touched. Froy uses a walker herself and would not be able to be a strong caregiver for him. His brother and mother are in agreement for SNF. Gave verbal referral to Mera at [facility], which is family's first choice. PT/OT Radha pending. Plan: Follow up with [facility] on Saturday. Follow up with PT/OT radha. ALEX Discharge Planning/Care Management CM Discharge Assessment Start: 08/05/22 09:37 Freq: Status: Active Protocol: Document 08/05/22 09:37 (Rec: 08/05/22 09:43 [id number]) Discharge Planning Assessment Assigned Hot Strip Finisher Renea Talamantes RN/MAXINEP Advance Directives? No Advance Directives on File No History Provided By Patient,Family Member,Medical Record Prior Living Arrangements Mobile home Household Members family Comment Mother Bibi Type of transporation used prior to Relies on Others admit Independent with ADL's No: Requires assist with meals , showering, transportation, etc. Is patient alert and oriented? Yes Needs Assistance With Bathing,Meal Prep,Managing Medications,Home Chores / Shopping Caregiver for Another No Community Services used prior to Transportation admission: DME Already Rented / Owned Bath Bench,Wheelchair,FWW / Walker Barriers to Discharge No Comment Due to developmental delay, PASSR will be a challenge for SNF admission if needs SNF. Transportation Arrangement Family Referrals Initiated Correction Additional Comment Indigoz Whiteboard Updated in Patient Room with Yes name and ext. # of Hot Strip Finisher Review Status In Process Next Review Type Continued Stay Review Document 08/05/22 12:07 (Rec: 08/05/22 12:07 [id number]) Discharge Planning Assessment Assigned Hot Strip Finisher Renea Talamantes RN/DCP Advance Directives? No Advance Directives on File No History Provided By Patient,Family Member,Medical Record Prior Living Arrangements Mobile home Household Members family Comment Mother Bibi Type of transporation used prior to Relies on Others admit Independent with ADL's No: Requires assist with meals , showering, transportation, etc. Is patient alert and oriented? Yes Needs Assistance With Bathing,Meal Prep,Managing Medications,Home Chores / Shopping Caregiver for Another No Community Services used prior to Transportation admission: DME Already Rented / Owned Bath Bench,Wheelchair,FWW / Walker Barriers to Discharge No Comment Due to developmental delay, PASSR will be a challenge for SNF admission if needs SNF. Transportation Arrangement Family Referrals Initiated Correction Additional Comment Indigoz Whiteboard Updated in Patient Room with Yes name and ext. # of Hot Strip Finisher Review Status In Process Next Review Type Continued Stay Review
[2022-08-05] MEDS: ENOXAPARIN 40 MG/0.4 ML SYRINGE SUBCUT (15:14)
[2022-08-05] MEDS: DOCUSATE 100 MG CAPSULE PO ×2 (15:22→21:00)
[2022-08-05] MEDS: AZITHROMYCIN 500 MG in DEXTROSE 5% IN WATER 250 ML 250 MG IV (16:47)
[2022-08-05] MEDS: OLOPATADINE 0.2% 1 EACH EYE-BOTH (17:46)
--- NOTE | 2022-08-05 19:26 | P.PN_ITS ---
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 He is now post-op from repair of the left hip and elbow reduction. ? Patient did spike fevers overnight. Vancomycin was added to his current regimen of Rocephin. He is sitting up in chair this afternoon. His mom notes that it has been difficult to get him to cough and deep breathe. She feels his congestion has improved today. He still has a poor appetite. He is not had a bowel movement since admission. Exam Vital Signs (past 8 hours): - 08/05/22 11:53 08/05/22 15:00 08/05/22 16:20 Temperature 99.7 F H 99.1 F Pulse Rate 124 H 131 H Respiratory Rate 20 20 Blood Pressure 107/53 L 115/55 L Pulse Oximetry 97 96 96 Oxygen Delivery Method Simple Mask Oxygen Flow Rate 6 4 3 Fraction of Inspired Oxygen 32 SaO2/FiO2 Ratio 296 Oxygen Delivery Method Simple Mask Oxygen Flow Rate 3 Narrative Exam Narrative: GEN:? Adult male, Alert and oriented x1-2, appears uncomfortable, less anxious HEENT:? Normocephalic, face symmetric CHEST:? Respiratory excursions symmetric, diminished in the bases, O2 requirement down from 6 L via face mask yesterday to 3 L today CV:? Tachycardic with regular rhythm, no murmurs, rubs, gallops, PMI difficult to palpate ABD:? Soft, nontender, nondistended, bowel sounds present in all 4 quadrants, body habitus limits exam EXTR:? Warm, well perfused, no clubbing/cyanosis/edema SKIN:? Warm and dry, without rash NEURO:? Alert and oriented x1-2, appears grossly intact PSYCH:? Pleasant and cooperative Objective Labs 08/06/22 05:40 08/06/22 05:40 Labs: Laboratory Results - last 24 hr 08/05/22 08/05/22 05:05 05:05 WBC 25.1 H RBC 4.39 L Hgb 13.4 L Hct 39.4 L MCV 89.9 MCH 30.5 MCHC 34.0 RDW 13.8 Plt Count 223 Neut % (Auto) Not Reportable Lymph % (Auto) Not Reportable [place] % (Auto) Not Reportable Eos % (Auto) Not Reportable Baso % (Auto) Not Reportable Lymph # (Auto) Not Reportable [place] # (Auto) Not Reportable Baso # (Auto) Not Reportable Total Counted 100 Seg Neutrophils % 71.0 H Lymphocytes % (Manual) 22.0 L Monocytes % (Manual) 7.0 Neutrophils # (Manual) 01550 H RBC Morphology Normal morphology Sodium 133 L Potassium 4.1 Chloride 99 Carbon Dioxide 27 BUN 9 Creatinine 0.66 Estimated GFR > 60 BUN/Creatinine Ratio 13.6 Glucose 131 H Calcium 8.5 PFSH Medical History Autism Hardik-Taybi syndrome Social History household members: family Smoking Status: Never smoker alcohol intake: never Assessment & Plan Assessment & Plan narrative: 1. Sinus Tachycardia Patient has some ongoing persistent tachycardia, although currently his heart rate is significantly improved down from the 150s yesterday to the [address] PE was negative for PE. As his pain has been better controlled, he has had improved heart rates as well. He does become somewhat more tachycardic with cares. Does have a fair amount of anxiety. E coli is growing from his UA. It is possible he had an underlying asymptomatic UTI prior to admission. This is being treated with Rocephin as noted. 2. Leukocytosis Improving with the addition of Rocephin and vancomycin. Etiology may be low- grade UTI versus early pneumonia. Blood cultures negative to date. Urine culture revealed E coli with [phone] colonies per mL. 3. Presumptive UTI, E coli This is pansensitive. He is on ceftriaxone. He was not symptomatic, but did have dramatic leukocytosis on admission. 4. Acute hypoxic respiratory failure Likely secondary to poor pulmonary hygiene. Overall, his oxygen need has improved and he is spending more time up in a chair. 5. Fever Likely due to combination of potential underlying infection and atelectasis. Encouraged mom to continue working on getting him to cough and deep breathe. As noted, he is covered broadly with Rocephin and vancomycin. 6. Acute displaced left intertrochanteric fracture after mechanical fall Postoperative day 2 from ORIF.? He continues Tylenol, oxycodone, and ibuprofen this morning and work on more aggressive oral pain management.? Pending therapy evaluations.? I did discuss with family that providing rewards for his participation in therapies may be the best option to get his adherence overall.? They agree. ? 7. Left elbow fracture and dislocation Status post closed reduction of the left elbow.? Dr. Grodon repeated a CT yesterday which does show ongoing effusion. 8. Mechanical fall No syncopal or presyncopal symptoms to raise concern for underlying etiology. 9. Hardik-Taybi syndrome Patient's mom reports he does not have any cardiac or renal issues secondary to his genetic syndrome.? He does have short stature, intellectual disability, distinctive facial features, and eye abnormalities.? If his tachycardia persists, will obtain an echocardiogram to rule out unidentified cardiac issues 10. Autism Patient's mother reports he does get anxious with medical interventions.? He also does not like to be touched.? We will be mindful of that with ongoing interactions.? As noted above, will work on rewards to encourage him to participate in care. Code status Full Prophylaxis Start Lovenox. Disposition Continue working on pain management, mobility. When he has been afebrile for 24 hours, has improved tachycardia, he has been accepted to [facility] for rehab Surrogate decision maker:? Patient's mother, Bibi Vo El VTE Deep Vein Thrombosis/Pulmonary Embolism Present on Admission: No
[2022-08-05] MEDS: ASPIRIN EC 81 MG TABLET PO (21:00)
[2022-08-05] MEDS: SENNOSIDES 8.6 MG TABLET 17.2 MG PO (21:00)
[2022-08-06] VITALS (17 sets, daily range): BP systolic 100–122; BP diastolic 51–64; PULSE 116–127; RESP 16–20; TEMP 37.1–39.2; O2SAT 94–96
[2022-08-06] MEDS: ACETAMINOPHEN 325 MG TABLET 650 MG PO ×4 (02:18→23:46)
--- NOTE | 2022-08-06 04:21 | PC.NURSE ---
0000: T: 99.9, rechecked at 0122 T; 99.8. Scheduled tylenol given at 0218. 0420, T: 101. Ice packs placed in armpits, blankets removed, pt covered w/ sheet.
[2022-08-06] MEDS: SODIUM CHLORIDE 0.9% 1,000 ML 125 ML IV ×3 (04:39→23:47)
[2022-08-06] MEDS: SODIUM CHLORIDE 0.9% 1,000 ML 1000 ML IV (06:00)
[2022-08-06] MEDS: IBUPROFEN 400 MG TABLET PO ×5 (06:01→23:46)
[2022-08-06 06:43] LABS: Add Manual Diff / Slide Review NO; Basophils Absolute Auto 0 /uL (0-100); Basophils Percent Auto 0.2 % (0-2); Eosinophils Absolute Auto 0 /uL (0-450); Eosinophils Percent Auto 0.2 % (2-4); Hematocrit 31.8 % (41-53); Hemoglobin 10.7 g/dL (13.5-17.5); Lymphocytes Absolute Auto 4200 /uL (1100-4500); Lymphocytes Percent Auto 22.8 % (25-40); Mean Corpuscular HGB Conc 33.8 % (30-36); Mean Corpuscular Hemoglobin 30.7 PG (26-34); Mean Corpuscular Volume 90.9 fL (80-100); Monocytes Absolute Auto 2100 /uL (0-900); Monocytes Percent Auto 11.2 % (3-14); Neutrophils Absolute Auto 12000 /uL (1500-7000); Neutrophils Percent Auto 65.6 % (50-75); Platelet Count 176 X10^3/uL (150-400); Red Blood Cell Count 3.49 X10^6/uL (4.5-5.9); Red Cell Distribution Width 13.5 % (11.6-14.8); White Blood Cell Count 18.3 X10^3/uL (4.5-11.0)
[2022-08-06 06:49] LABS: BUN Creatinine Ratio 12.7 (6-22); Blood Urea Nitrogen 9 mg/dL (9-20); Calcium 7.7 mg/dL (8.4-10.2); Carbon Dioxide 26 mmol/L (22-32); Chloride 103 mmol/L (98-107); Estimated Glomerular Filt Rate > 60 mL/min (>60); Glucose 96 mg/dL (70-100); HEMOLYSIS < 15 (0-50); Potassium 3.8 mmol/L (3.4-5.1); Sodium 134 mmol/L (137-145)
[2022-08-06] MEDS: VANCOMYCIN 2,000 MG/400 ML PIGGYBACK 200 MG IV (07:27)
[2022-08-06] MEDS: cefTRIAXone 1,000 MG in SODIUM CHLORIDE 0.9% 100 ML 200 MG IV (09:34)
[2022-08-06] MEDS: LORATADINE 10 MG TABLET PO (09:34)
[2022-08-06] MEDS: ASPIRIN EC 81 MG TABLET PO (09:34)
[2022-08-06] MEDS: ENOXAPARIN 40 MG/0.4 ML SYRINGE SUBCUT (09:34)
[2022-08-06] MEDS: DOCUSATE 100 MG CAPSULE PO (09:34)
[2022-08-06] MEDS: SENNOSIDES 8.6 MG TABLET 17.2 MG PO (09:34)
[2022-08-06] MEDS: OLOPATADINE 0.2% 1 EACH EYE-BOTH (09:36)
--- NOTE | 2022-08-06 10:38 | P.PN_ITS ---
Subjective Subjective Date Patient Seen: 08/06/22 Time Patient Seen: 07:00 Interval history: Is awake lying in bed comfortably this morning with his mom at bedside. She states she is his primary caregiver and they live at home together. Patient responds affirmative when asked if he is in pain, only when hip is touched or moved. No other complaints this morning. Patient's mom is looking forward to seeing how physical therapy goes today. She is concerned that the patient ran a fever overnight, but acknowledges that his antibiotics have been changed and he is receiving more today. Exam Vital Signs (past 8 hours): - 08/06/22 03:00 08/06/22 04:20 08/06/22 05:48 Temperature 101 F H 101.9 F H Pulse Rate 123 H Respiratory Rate 20 Blood Pressure 100/52 L Pulse Oximetry 96 95 Oxygen Delivery Method Nasal Cannula Oxygen Flow Rate 3 3 08/06/22 06:01 08/06/22 08:26 08/06/22 09:05 Temperature 101.9 F H 102.5 F H Pulse Rate Respiratory Rate Blood Pressure Pulse Oximetry 95 Oxygen Delivery Method Nasal Cannula Oxygen Flow Rate 3 08/06/22 09:35 08/06/22 07:00 08/06/22 09:30 Temperature Pulse Rate 127 H Respiratory Rate Blood Pressure 116/56 L Pulse Oximetry 94 95 Oxygen Delivery Method Nasal Cannula Nasal Cannula Oxygen Flow Rate 0 3 Fraction of Inspired Oxygen 32 SaO2/FiO2 Ratio 290 Oxygen Delivery Method Nasal Cannula Oxygen Flow Rate 0 Narrative Exam Narrative: Pleasant 46-year-old male with facial features consistent with Hardik-Taybi syndrome. Awake, alert, answers yes or no questions appropriately by grunting and nodding head. Strength and sensation intact to bilateral lower extremities. Bilateral calves soft, compressible, nontender with no palpable cords or masses. Intraoperative Aquacel dressing intact with small, centrally located area of blood. Objective Labs 08/06/22 05:40 08/06/22 05:40 Labs: Laboratory Results - last 24 hr 08/06/22 08/06/22 05:40 05:40 WBC 18.3 H RBC 3.49 L Hgb 10.7 L Hct 31.8 L MCV 90.9 MCH 30.7 MCHC 33.8 RDW 13.5 Plt Count 176 Neut % (Auto) 65.6 Lymph % (Auto) 22.8 L [place] % (Auto) 11.2 Eos % (Auto) 0.2 L Baso % (Auto) 0.2 Neut # (Auto) 09880 H Lymph # (Auto) 4200 [place] # (Auto) 2100 H Eos # (Auto) 0 Baso # (Auto) 0 Sodium 134 L Potassium 3.8 Chloride 103 Carbon Dioxide 26 BUN 9 Creatinine 0.71 Estimated GFR > 60 BUN/Creatinine Ratio 12.7 Glucose 96 Calcium 7.7 L PFSH Medical History Autism Hardik-Taybi syndrome Social History household members: family Smoking Status: Never smoker alcohol intake: never Assessment & Plan Post-op Postoperative Procedures: Procedures Operation Date: 08/04/22 09:30 Actual Procedure Side Surgeon p ORIF Hip DHS Left Ling Gordon MD s closed reduction Elbow Fracture Left Ling Gordon MD Postoperative day: 2 Postoperative status: doing well Postoperative status narrative: Patient's postoperative course is complicated by fever and tachycardia. His IV antibiotics have been changed. Postoperative plan: routine post-op care Postoperative plan narrative: Plan to work with physical therapy today. Nonweightbearing left upper extremity, weight-bearing 100 lb to left lower extremity. Plan for discharge to group home facility for additional rehab when appropriate. Quality VTE Deep Vein Thrombosis/Pulmonary Embolism Present on Admission: No
--- NOTE | 2022-08-06 11:41 | CM.DPC ---
DCP Cont: Spoke to Mera at [facility], can accept patient. Called over at the [facility] PASSR department for some guidance as to filling out the PASSR, since patient is developmentally delayed, has Autism. Spoke to Monica, in the PASSR department, at [phone]. She was able to look patient up in the system, only information that she has is that patient is on food stamps. She gave instructions over the phone which items to check on patient. She gave a fax number to send PASSR over to :[phone]. Put this [facility] fax number on face sheet so she can respond. Confirmed that patient is not yet medically ready for discharge. P: DCP to continue to follow. PASSR was completed, and have faxed over to PASSR to [facility] PASSR, spoke to Monica, will review. Akosua Prescott RN/Cad Intern
[2022-08-06] MEDS: HYDROMORPHONE 0.5 MG INJ IV (12:20)
--- NOTE | 2022-08-06 12:37 | OT.IP.EVAL ---
Current Diagnoses Elevated white blood cell count, unspecified (08/04/22) Age-related osteoporosis without current pathological fracture (08/04/22) Unspecified dislocation of left ulnohumeral joint, initial encounter (08/04/22) Displaced intertrochanteric fracture of left femur, initial encounter for closed fracture (08/04/22) Surgery Performed Operation Date: 08/04/22 09:30 Actual Procedures p ORIF Hip DHS(Left) - Ling Gordon MD s closed reduction Elbow Fracture(Left) - Ling Gordon MD Past Medical History (Last Reviewed 08/06/22 @ 10:46 by Addis Ro PA-C) Autism Hardik-Taybi syndrome Occupational Therapy Inpatient Evaluation/Re-Eval M1 PT/OT-IP Prior Functional Status Start: 08/06/22 13:24 Freq: NEEDED Status: Active Protocol: Document 08/06/22 14:13 CGR (Rec: 08/06/22 14:33 CGR [id number]) Medical Review Prior Functional Status Medical History Reviewed Yes Communication Pt is an effective verbal communicator but he can be difficult to understand at times. Mobility and Gait Pt was IND in all mobility at baseline. Activities of Daily Living and IADL's Pt was IND for simple ADLs and dressing. Pt gets assist with bathing and with all cooking. Social History Household Members family Living Arrangements Mobile home Number of Floors (Floors) One Floor Number of Stairs To Enter/Railing? ramp to enter Home Environment Ramp Home Equipment Tub Transfer Bench,Grab Bars In Shower Employment Status Unemployed Additional Social History Comment Pt lives at home with his mother. Pt's brother lives down the street in the same mobile home park. M2 OT-IP Current Condition Start: 08/06/22 14:13 Freq: Status: Active Protocol: Document 08/06/22 14:13 CGR (Rec: 08/06/22 14:33 CGR [id number]) Occupational Therapy Current Condition Current Condition Evaluation Date 08/06/22 Treatment Diagnosis Fall with L hip fx and elbow dislocation, 6/3 reducation of elbow, ORIF LLE Diagnosis Onset Date 08/04/22 Weight Bearing Status Weight Bearing Status Non-Weight Bearing Allowed Weight Bearing Amount (enter % 100lbs to the LLE or #) (%) NWB to the LUE M3 OT- IP Subjective and Pain Start: 08/06/22 14:13 Freq: Status: Active Protocol: Document 08/06/22 14:13 CGR (Rec: 08/06/22 14:33 CGR [id number]) OT- Subjective Occupational Therapy Visit Type Type Initial Evaluation Visit Start Time 11:59 Visit Stop Time 12:37 Total Visit Minutes 38 Notes Pt's mother present throughout session. OT Pain Assessment Pain When Pain Assessed During Mobility Pain Present Pain Present Pain Reported Location left hip fx Scale Used did not rate Pain Behaviors Calling Out,Guarding,Moaning Management Techniques Modification of Treatment,Re- positioning,Timing of Activity with Medications M4 OT- IP ADL's Start: 08/06/22 14:13 Freq: Status: Active Protocol: Document 08/06/22 14:13 CGR (Rec: 08/06/22 14:33 CGR [id number]) OT [id number] Comments OT Self-Feeding Comments not meal time OT ADL-Grooming Comments OT Grooming Comments not performed OT ADL-Oral Care Comments Oral Care Comments not performed OT ADL-Dressing General Eval Lower Body Dressing Ability Total Assistance Areas Needing Assistance Socks OT ADL-Toileting General Evaluation Toileting Ability Total Assistance Comments OT Toileting Comments pt with lilly OT ADL-Bathing Comments OT Bathing Comments not performed M5 OT- IP IADL's Start: 08/06/22 14:13 Freq: Status: Active Protocol: Document 08/06/22 14:13 CGR (Rec: 08/06/22 14:33 CGR [id number]) OT-Instrumental Activities of Daily Living Deficits IADL Deficits Identified Deficits Home Safety Awareness Awareness of Need for Assistance at Home Decreased Awareness Ability to Problem Solve Emergency Unable to Problem Solve Situations Medication Management Medication Management Caregiver Administers Money Management Money Management Caregiver Provides Assistance Meal Preparation Meal Preparation Caregiver Provides Assist Studio Musician Studio Musician Caregiver Provides Assist Driving Driving Comments Pt does not drive M6 OT- IP Functional Cognition Start: 08/06/22 14:13 Freq: Status: Active Protocol: Document 08/06/22 14:13 CGR (Rec: 08/06/22 14:33 CGR [id number]) Cognitive Factors Limiting Selfcare Function Cognitive Ability Level of Alertness Alert,Confusional State Patient Orientation Name Attention Span Ability Capable of Focused Attention, Capable of Sustained Attention Ability to Follow Commands Able to Follow One Step Commands with Increased Time, Able to Follow One Step Commands with Repetition Cognitive Comments Cognitive Assessment Comments 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 Pt was able to follow commands and verbalize minimally. OT- Vision and Hearing OT- Hearing Assessment OT- Hearing Assessment WFL OT- Vision Assessment Vision Assessment Comments Unable to test, pt with matted eyes at this time. M7 OT- IP Mobility and Balance Start: 08/06/22 14:13 Freq: Status: Active Protocol: Document 08/06/22 14:13 CGR (Rec: 08/06/22 14:33 CGR [id number]) OT- Bed Mobility Assessment Supine to Sit Supine to Sit Assist Total Assistance,1 Person Assistance Scooting Scooting to Edge of Bed Total Assistance,1 Person Assistance OT-Transfer Assessment Sit to and From Stand Sit to and from Stand Maximum Assistance,1 Person Assistance Transfers Transfer Ability Total Assistance Technique Transfer Destination Bed,Chair Transfer Technique Mechanical Lift Devices Transfer Assistive Devices Gait Belt Comments Mobility Comments Attempted sit to stand from bed and pt was able to stand but not able to perform stand pivot using his RLE. Pt returned to sitting EOB and sobeida sling was donned. Pt then was hoyered to chair. OT- Gait Assessment Comments Gait Ability Comments Did not occur. OT- Balance Assessment Sitting Balance and Reactions Static Sitting Balance Ability Poor Dynamic Sitting Balance Ability Poor Comments Other Balance Tests/Deviations/Treatment Pt needed mod to total assist : for sitting balance EOB. This is likely d/t pain while sitting EOB. M8 OT- IP Objective Assessments Start: 08/06/22 14:13 Freq: Status: Active Protocol: Document 08/06/22 14:13 CGR (Rec: 08/06/22 14:33 CGR [id number]) OT Gross Range of Motion Upper Extremity Range of Motion ROM Impairments not performed, pt does not like being touched OT Strength Comments Strength Comments not performed, pt does not like being touched OT- Coordination Assessment Comments Coordination Comments not performed, pt does not like being touched OT Sensation Assessment Comments Summary Comments Per family, pt is hyper sensitive to touch. Edema Edema Present Edema Comments noted to the LLE M9 OT- IP Assessment and Plan Start: 08/06/22 14:13 Freq: Status: Active Protocol: Document 08/06/22 14:13 CGR (Rec: 08/06/22 14:33 CGR [id number]) OT Summary Assessment and Plan Potential Rehabilitation Potential Good Analytic Complexity at Evaluation High Summary OT Impairments Pain,Range of Motion,Strength, Balance,Sensation,Functional Cognition,Functional Mobility, Grooming,Dressing,Toileting, Bathing,Toilet Transfers, Shower Transfers,Activity Tolerance Progress Towards Goals Slow Progress due to Pain,Slow Progress due to Medical Issues,Slow Progress due to Activity Tolerance,Slow Progress due to Cognition Assessment Summary Pt presents as a high complexity evaluation s/p admit for fall with L hip fx and dislocation of the L elbow . Pt was able to minimally participate in therapy today. Pt's mother stated that pt hadn't been taking anything more than Tylenol even with transfer to chair yesterday. Attempted supine to sit prior to heavier pain medicine and pt required increased pain medicine. Nursing arrived and provided IV pain meds for faster administration and efficacy. Pt was able to then sit EOB with less assist and stood from bed but was unable to motor plan transfer to chair using his RLE. Pt returned to sitting EOB and sobeida sling was utilized to move pt from bed to chair. Pt positioned in chair and then declined further activity. Pt will benefit from continued therapy services. Recommend d/c to SNF. Goals Grooming Goal Independent Dressing Goal Independent Toileting Goal Independent Bathing Goal Independent Toilet Transfer Goal Independent Shower Transfer Goal Independent Days to Meet Goals 60 Frequency of Treatment Frequency Of Treatment Once a Day Treatment Plan OT Treatment Plan ADL Training,Functional Cognition Training,Functional Mobility,Therapeutic Exercises ,Patient/Family Education, Discharge Planning Other Treatment Recommendations and Next ADLs seated in chair. Treatment Focus Discharge Recommendations OT Discharge Recommendations SNF Rehab Transportation Needs at Discharge Wheelchair/Cabulance
--- NOTE | 2022-08-06 14:43 | PT-IP ANOTE ---
Received PT orders and completed chart review. Met with pt who was sitting up in the chair after OT session earlier in the day. Attempted to work on sit to stands with pt but he was very fixated on his left hip pain and not willing to stand with PT and SPT. He had at least 3/5 right knee and ankle strength. Left knee was 3-/5 or less. Pt stated it would be ok to attempt working with him in the morning. Will follow up at next service date.
[2022-08-06] MEDS: VANCOMYCIN 1,250 MG/250 ML PIGGYBACK 250 MG IV ×2 (16:00→23:47)
[2022-08-06] MEDS: AZITHROMYCIN 500 MG in DEXTROSE 5% IN WATER 250 ML 250 MG IV (17:48)
[2022-08-06] MEDS: OXYCODONE IR 5 MG TABLET PO ×2 (18:32→23:50)
--- NOTE | 2022-08-06 22:26 | PC.NURSE ---
Pt refused bedtime meds at 2100, will try again at 0000 during vitals/turn.
[2022-08-07] VITALS (7 sets, daily range): BP systolic 123–139; BP diastolic 64–73; PULSE 116–131; RESP 18–20; TEMP 37.1–37.3; O2SAT 96–99
[2022-08-07] MEDS: VANCOMYCIN 1,250 MG/250 ML PIGGYBACK 250 MG IV ×3 (06:08→23:41)
[2022-08-07 06:39] LABS: Add Manual Diff / Slide Review NO; Basophils Absolute Auto 100 /uL (0-100); Basophils Percent Auto 0.4 % (0-2); Eosinophils Absolute Auto 200 /uL (0-450); Eosinophils Percent Auto 1.7 % (2-4); Hematocrit 23.8 % (41-53); Hemoglobin 7.9 g/dL (13.5-17.5); Lymphocytes Absolute Auto 3600 /uL (1100-4500); Lymphocytes Percent Auto 26.3 % (25-40); Mean Corpuscular HGB Conc 33.3 % (30-36); Mean Corpuscular Hemoglobin 30.6 PG (26-34); Mean Corpuscular Volume 91.9 fL (80-100); Monocytes Absolute Auto 1400 /uL (0-900); Neutrophils Absolute Auto 8400 /uL (1500-7000); Neutrophils Percent Auto 61.6 % (50-75); Platelet Count 191 X10^3/uL (150-400); Red Blood Cell Count 2.59 X10^6/uL (4.5-5.9); Red Cell Distribution Width 13.5 % (11.6-14.8); White Blood Cell Count 13.6 X10^3/uL (4.5-11.0)
[2022-08-07 06:50] LABS: Blood Urea Nitrogen 7 mg/dL (9-20); Calcium 6.9 mg/dL (8.4-10.2); Carbon Dioxide 20 mmol/L (22-32); Chloride 104 mmol/L (98-107); Estimated Glomerular Filt Rate > 60 mL/min (>60); Glucose 83 mg/dL (70-100); HEMOLYSIS < 15 (0-50); Potassium 3.3 mmol/L (3.4-5.1); Sodium 133 mmol/L (137-145)
[2022-08-07] MEDS: cefTRIAXone 1,000 MG in SODIUM CHLORIDE 0.9% 100 ML 200 MG IV (09:36)
[2022-08-07] MEDS: ASPIRIN EC 81 MG TABLET PO (09:43)
[2022-08-07] MEDS: IBUPROFEN 400 MG TABLET PO ×2 (09:44→17:44)
[2022-08-07] MEDS: DOCUSATE 100 MG CAPSULE PO (09:44)
[2022-08-07] MEDS: SENNOSIDES 8.6 MG TABLET 17.2 MG PO (09:44)
[2022-08-07] MEDS: polyethylene glycoL 3350 17 GM POWD.PACK PO (09:44)
[2022-08-07] MEDS: ENOXAPARIN 40 MG/0.4 ML SYRINGE SUBCUT (09:49)
[2022-08-07] MEDS: LORATADINE 10 MG TABLET PO (09:49)
[2022-08-07] MEDS: ACETAMINOPHEN 325 MG TABLET 650 MG PO (09:49)
--- NOTE | 2022-08-07 10:56 | CM.DPC ---
Addendum entered by Akosua Prescott R.N. 08/07/22 11:46: Called [facility], spoke to Sonia, to set up transport tomorrow. Explained the situation, patient is autisic, sustained a hip and elbow fracture, is having pain anxiety issues. Asked if patient's mother, Nettie, who is primary caregiver, to go in the vehicle with patient. She indicated that she would talk to the transport team, they have done this before in some cases. Explained that patient does have Medicaid. Set up transport time for 1330 tomorrow. Let her know that they will be called if patient is not medically ready by tomorrow. Mother is aware that transport is being set up in the afternoon. Completed BLS form, will need hospitalist signature, and will update Mera at [facility]. Original Note: DCP Cont: Met with patient and mother, Nettie, at bedside. Noticed that there was no phone number listed for mother. Her number is: [phone]. Friend also at bedside. Updated Nettie that [facility] can accept. Dr. Sharp indicated that patient could be medically ready tomorrow. Discussed transport, confirmed that BLS would be the safest for patient. Mother would like to ride along with patient if possible. Mentioned possible cost of transport, but is Medicaid, may be covered. Confirmed with Mera at [facility] that they can accept patient tomorrow. Will go ahead and set up time for or around 1300 tomorrow, can cancel if needed. Spoke to Monica at [facility], received PASSR, asked for additional information, was able to provide mother's phone number, and faxed face sheet. P: DCP to continue to follow. Will go ahead and set up BLS transport for tomorrow at or around 1300, and will update Mera at [facility]. Akosua Prescott RN/Science Liaison
[2022-08-07] MEDS: POTASSIUM CHLORIDE 20 MEQ TAB 40 MEQ PO ×2 (11:43→17:44)
[2022-08-07] MEDS: HYDROCODONE/ACET 5/325 TABLET 1 TAB PO (11:43)
--- NOTE | 2022-08-07 11:50 | PT.IIE ---
Current Diagnoses Elevated white blood cell count, unspecified (08/04/22) Age-related osteoporosis without current pathological fracture (08/04/22) Unspecified dislocation of left ulnohumeral joint, initial encounter (08/04/22) Displaced intertrochanteric fracture of left femur, initial encounter for closed fracture (08/04/22) Surgery Performed Operation Date: 08/04/22 09:30 Actual Procedures p ORIF Hip DHS(Left) - Ling Gordon MD s closed reduction Elbow Fracture(Left) - Ling Gordon MD Medical History (Last Reviewed 08/06/22 @ 10:46 by Addis Ro PA-C) Autism Hardik-Taybi syndrome Physical Therapy Inpatient Evaluation/Re-Eval M1 PT/OT-IP Prior Functional Status Start: 08/06/22 13:24 Freq: NEEDED Status: Active Protocol: Document 08/06/22 14:13 CGR (Rec: 08/06/22 14:33 CGR [id number]) Medical Review Prior Functional Status Medical History Reviewed Yes Communication Pt is an effective verbal communicator but he can be difficult to understand at times. Mobility and Gait Pt was IND in all mobility at baseline. Activities of Daily Living and IADL's Pt was IND for simple ADLs and dressing. Pt gets assist with bathing and with all cooking. Social History Household Members family Living Arrangements Mobile home Number of Floors (Floors) One Floor Number of Stairs To Enter/Railing? ramp to enter Home Environment Ramp Home Equipment Tub Transfer Bench,Grab Bars In Shower Employment Status Unemployed Additional Social History Comment Pt lives at home with his mother. Pt's brother lives down the street in the same mobile home park. M1 PT/OT-IP Prior Functional Status Start: 08/06/22 14:13 Freq: NEEDED Status: Active Protocol: Document 08/07/22 11:50 AB (Rec: 08/07/22 14:19 AB [id number]) Medical Review Prior Functional Status Medical History Reviewed Yes Communication pt is able to follow one step commands but inconsistent and can perseverate on tasks. Mobility and Gait pt's mother in room and provided pt's PLOF and home set up. Pt's mom stated that pt is modified independent with all mobilities and ambulation without AD Activities of Daily Living and IADL's per OT's note: Pt was IND for simple ADLs and dressing. Pt gets assist with bathing and with all cooking. Social History Household Members family Living Arrangements Mobile home Number of Floors (Floors) One Floor Number of Stairs To Enter/Railing? ramp to enter Home Environment Standard Height Toilet,Tub/ Shower,Ramp Home Equipment Tub Transfer Bench,Hand Held Shower,Grab Bars In Shower Employment Status Unemployed Additional Social History Comment Pt lives at home with his mother. Pt's brother lives down the street in the same mobile home park. M2 PT-IP Current Condition Start: 08/06/22 13:24 Freq: NEEDED Status: Active Protocol: Document 08/07/22 11:50 AB (Rec: 08/07/22 14:19 AB [id number]) Physical Therapy Current Condition Current Condition Evaluation Date 08/07/22 Treatment Diagnosis GLF; L elbow fx s/p closed reduction; L hip fx s/p ORIF; difficulty in walk Onset Date 08/04/22 M3 PT-IP Subjective Start: 08/06/22 13:24 Freq: NEEDED Status: Active Protocol: Document 08/07/22 11:50 AB (Rec: 08/07/22 14:19 AB [id number]) Subjective Physical Therapy Visit Type Type Initial Evaluation Visit Start Time 11:50 Visit Stop Time 12:27 Total Visit Minutes 37 Number of WIRELESS CELLULAR TECHNICIAN Visits 0 Therapy Pain Assessment Pain When Pain Assessed At Rest Pain Present Pain Present Pain Reported Location left hip fx Scale Used pain scale not stated Pain Management Techniques Distraction,Modification of Treatment,Re-positioning, Timing of Activity with Medications M4 PT-IP Mobility and Gait Start: 08/06/22 13:24 Freq: NEEDED Status: Active Protocol: Document 08/07/22 11:50 AB (Rec: 08/07/22 14:19 AB [id number]) PT-Bed Mobility Assessment Supine to Sit Supine to Sit Maximum Assistance,Total Assistance,2 Person Assistance ,Head of Bed Elevated,Bedrails Scooting Scooting to Edge of Bed Dependent PT-Transfer Assessment Comments Mobility Comments pt supine in bed with his mother in room. sling on LUE on pt. pt completed supine to sit with HOB elevated max A x 2 to total A x 2 and max cues. pt perseverating on using mechanical lift to get him out of the bed. explained to pt that he has to try to move first. Pt needs max cues with all tasks. pt able to sit on EOB CGA. total A x 2 for scooting to EOB. attempted standing x 3 but pt unable and unable to follow LLE PWB of 100 # and PT opted to do NWB for safety but pt unable to maintain weight bearing restriction despite max A x 2 provided. NAC in room to assist. assisted pt on to the chair using mechanical lift. positioned pt on the chair total A x 2 . call light and table placed within reach. Gait Assessment Comments Gait Comments unable at this time PT-Balance Assessment Sitting Balance and Reactions Static Sitting Balance Ability Good Dynamic Sitting Balance Ability Fair Comments Other Balance Tests/Deviations/Treatment attempted to stand using : hemiwalker for support but pt unable to stand and maintain NWB/PWB on LLE M5 PT-IP Objective Assessments Start: 08/06/22 13:24 Freq: NEEDED Status: Active Protocol: Document 08/07/22 11:50 AB (Rec: 08/07/22 14:19 AB [id number]) Orientation Orientation/Cognition Level of Alertness Alert Orientation Name Safety Awareness Decreased Safety Awareness Comments pt has developemental delay and autism affecting following directions and expression Gross Range of Motion Lower Extremity ROM Assessment Left Impaired Impairments c/o increase LLE pain with movement with increase guarding during PROM Strength Lower Extremity Strength Assessment Bilaterally Impaired Comments Strength Comments inconsistent with following directions to test MMT but pt has difficulty moving BLE during bed mobility requiring max A x 1-2 for LE movement to EOB and pain limiting mobility as well. M6 PT-IP Treatment Start: 08/06/22 13:24 Freq: NEEDED Status: Active Protocol: Document 08/07/22 11:50 AB (Rec: 08/07/22 14:19 AB [id number]) Physical Therapy Treatment Education Education Provided Weight Bearing Status,Safety M7 PT-IP Assessment and Plan Start: 08/06/22 13:24 Freq: NEEDED Status: Active Protocol: Document 08/07/22 11:50 AB (Rec: 08/07/22 14:19 AB [id number]) PT Summary Assessment and Plan Potential Rehabilitation Potential Fair Status of Condition at Evaluation Evolving Summary Impairments Pain,ROM,Strength,Balance, Coordination,Sensation,Tone, Cognition,Bed Mobility, Transfers,Gait,Activity Tolerance Assessment Summary Pt s/p GLF and sustained an L elbow fracture s/p closed reduction and now on a sling and is NWB on LLE. Pt also sustained a L intertrochanteric hip fx and underwent ORIF and is PWB on LLE of 100#. pt has difficulty following directions with h/o autism and developemental delay. pt currently requiring max A x 2 for bed mobility and unable to maintain weight bearing restrictions. pt requiring a mechanical lift to transfers at this time. Pt will require SNF rehab to improve overall strength and mobility. Goals Bed Mobility Goal Minimal Assistance Transfer Goal Moderate Assistance Gait Goal Moderate Assistance,Isrrael Walker Gait Distance 20 Days to Meet Goals 10 Frequency of Treatment Frequency Of Treatment Once a Day Treatment Plan Physical Therapy Treatment Plan Bed Mobility Training,Transfer Training,Gait Training, Therapeutic Exercise,Balance Retraining,Post Op Education, Discharge Planning,Hot or Cold Pack,Neuromuscular Re-ed, Coordination Retraining,Manual Therapy Weight Bearing Status Allowed Weight Bearing Amount (enter % LUE: NWB or #) (%) LLE: PWB 100# Recommendations To Nursing Amount of Assist Needed Mechanical Lift Discharge Recommendations PT Discharge Recommendations SNF Rehab Transportation Needs at Discharge Stretcher/Ambulance
[2022-08-07 15:14] LABS: Vancomycin Trough 16.7 ug/mL (10-20)
--- NOTE | 2022-08-07 15:30 | PM.PN.1 ---
Subjective Subjective Date Patient Seen: 08/07/22 Time Patient Seen: 08:00 Interval history: Patient states he feels well. His mom states his pain is under better control. She says he is more alert and talkative. Her remains on oxygen Exam Vital Signs (past 8 hours): - 08/07/22 12:57 Temperature 99.1 F Pulse Rate 118 H Respiratory Rate 18 Blood Pressure 134/68 Pulse Oximetry 98 Oxygen Flow Rate 2 Fraction of Inspired Oxygen 32 SaO2/FiO2 Ratio 290 Oxygen Delivery Method Nasal Cannula Oxygen Flow Rate 2 Narrative Exam Narrative: GEN: no acute distress, interactive verbally but some speech delay declines rest of exam but appears with no respiratory distress Objective Labs 08/07/22 06:28 08/07/22 06:28 Labs: Laboratory Results - last 24 hr 08/07/22 08/07/22 08/07/22 06:28 06:28 06:28 WBC 13.6 H RBC 2.59 L Hgb 7.9 L Hct 23.8 L MCV 91.9 MCH 30.6 MCHC 33.3 RDW 13.5 Plt Count 191 Neut % (Auto) 61.6 Lymph % (Auto) 26.3 Sequoyah % (Auto) 10.0 Eos % (Auto) 1.7 L Baso % (Auto) 0.4 Neut # (Auto) 8400 H Lymph # (Auto) 3600 Sequoyah # (Auto) 1400 H Eos # (Auto) 200 Baso # (Auto) 100 Sodium 133 L Potassium 3.3 L Chloride 104 Carbon Dioxide 20 L BUN 7 L Creatinine 0.54 L Estimated GFR > 60 BUN/Creatinine Ratio 13.0 Glucose 83 Calcium 6.9 L Vancomycin Trough Cancelled 08/07/22 14:30 WBC RBC Hgb Hct MCV MCH MCHC RDW Plt Count Neut % (Auto) Lymph % (Auto) Sequoyah % (Auto) Eos % (Auto) Baso % (Auto) Neut # (Auto) Lymph # (Auto) Sequoyah # (Auto) Eos # (Auto) Baso # (Auto) Sodium Potassium Chloride Carbon Dioxide BUN Creatinine Estimated GFR BUN/Creatinine Ratio Glucose Calcium Vancomycin Trough 16.7 PFSH Medical History Autism Hardik-Taybi syndrome Social History household members: family Smoking Status: Never smoker alcohol intake: never Assessment & Plan Assessment & Plan narrative: 1. Sinus Tachycardia - sinus tachycardia, continues to improve, HR in 110s - has improved with improved pain control and leukocytosis - continue to monitor 2. Pneumonia, UTI -continue with IV vancomycin and ceftraixone -WBC improving dramatically with antibiotics -urine culture showed pansensitive e. coli 3. Hypoxemic respiratory failure -secondary to atelectasis and pneumonia -continue to encourage regular out of bed. Acute hypoxic respiratory failure 4. Acute displaced left intertrochanteric fracture after mechanical fall -post op from ORIF -continue with pain control, focusing on oral opiates regularly which seem to work best and wean off opiates as able -continue PT eval ? 5. Left elbow fracture and dislocation s/p closed reduction of the left elbow 6. Hardik-Taybi syndrome -stable Dispo: likely snf tomorrow if wbc and tachycardia further improved Quality VTE Deep Vein Thrombosis/Pulmonary Embolism Present on Admission: No
[2022-08-07] MEDS: AZITHROMYCIN 500 MG in DEXTROSE 5% IN WATER 250 ML 250 MG IV (17:42)
[2022-08-07] MEDS: HYDROMORPHONE 0.5 MG INJ IV (21:55)
[2022-08-07] MEDS: SODIUM CHLORIDE 0.9% 1,000 ML 125 ML IV (23:45)
[2022-08-08 05:56] LABS: Hematocrit 25.2 % (41-53); Hemoglobin 8.5 g/dL (13.5-17.5); Mean Corpuscular HGB Conc 33.6 % (30-36); Mean Corpuscular Hemoglobin 30.7 PG (26-34); Mean Corpuscular Volume 91.4 fL (80-100); Platelet Count 256 X10^3/uL (150-400); Red Blood Cell Count 2.75 X10^6/uL (4.5-5.9); Red Cell Distribution Width 13.9 % (11.6-14.8); White Blood Cell Count 14.5 X10^3/uL (4.5-11.0)
[2022-08-08 06:08] LABS: BUN Creatinine Ratio 14.3 (6-22); Blood Urea Nitrogen 7 mg/dL (9-20); Calcium 7.4 mg/dL (8.4-10.2); Carbon Dioxide 20 mmol/L (22-32); Chloride 106 mmol/L (98-107); Estimated Glomerular Filt Rate > 60 mL/min (>60); Glucose 95 mg/dL (70-100); HEMOLYSIS < 15 (0-50); Potassium 3.8 mmol/L (3.4-5.1); Sodium 134 mmol/L (137-145)
[2022-08-08 06:38] VITALS: BP 132/75; PULSE 117; RESP 18; TEMP 37.6; O2SAT 98
[2022-08-08] MEDS: VANCOMYCIN 1,250 MG/250 ML PIGGYBACK 250 MG IV (07:34)
--- NOTE | 2022-08-08 08:49 | DI.CT.S_ITS ---
PROCEDURE: CT ABDOMEN PELVIS W CON INDICATIONS: poor appetite TECHNIQUE: After the administration of oral and intravenous contrast, axial sections were acquired from the lung bases to the pubic symphysis. Coronal and sagittal reformats were performed. For radiation dose reduction, the following was used: automated exposure control, adjustment of mA and/or kV according to patient size. COMPARISON:None. FINDINGS: Image quality: Excellent. Lung bases: Unremarkable. Heart: No significant findings. ABDOMEN: Liver: Unremarkable. Gallbladder: Gallbladder sludge versus small stones. No wall thickening or pericholecystic edema to suggest acute cholecystitis. Biliary ducts: Unremarkable. Pancreas: Unremarkable. Spleen: Unremarkable. Adrenal Glands: Unremarkable. Kidneys and Ureters: Punctate nonobstructing right-sided nephrolithiasis. lobulation of the kidneys.. Stomach and Bowel: Stomach, small bowel loops, and colon are unremarkable. Peritoneum: No abnormal intraperitoneal fluid. No free air. Ventral Wall: No hernia. Subcutaneous gas in the anterior abdominal wall, likely injection granulomas. Abdominal Nodes: No retroperitoneal or mesenteric adenopathy by size criteria. Vessels: Aorta and inferior vena cava are normal in size. PELVIS: Pelvic Organs: Unremarkable. Bladder: Unremarkable. Pelvic Nodes: No enlarged lymph nodes. Miscellaneous: No inguinal hernias are seen. Bones: S-shape scoliosis. Interval left hip intramedullary reji and trochanteric screw fixation. Moderate edema of the left leg, presumably postoperative; no drainable fluid collection. Partially visualized left upper extremity ORIF changes. IMPRESSION: No acute findings to explain the patient's poor appetite. No evidence of bowel obstruction. Punctate nonobstructing right-sided nephrolithiasis. Dictated by: Chaparro Spears M.D. on 08/08/2022 at 10:26 Approved by: Chaparro Spears M.D. on 08/08/2022 at 10:30
[2022-08-08 09:20] VITALS: O2SAT 97
[2022-08-08] MEDS: cefTRIAXone 1,000 MG in SODIUM CHLORIDE 0.9% 100 ML 200 MG IV (09:23)
[2022-08-08] MEDS: PANTOPRAZOLE 40 MG VIAL IV (09:23)
[2022-08-08] MEDS: ENOXAPARIN 40 MG/0.4 ML SYRINGE SUBCUT (09:24)
[2022-08-08] MEDS: SENNOSIDES 8.6 MG TABLET 17.2 MG PO (09:24)
[2022-08-08] MEDS: ASPIRIN EC 81 MG TABLET PO (09:24)
[2022-08-08] MEDS: DOCUSATE 100 MG CAPSULE PO (09:24)
[2022-08-08] MEDS: LORATADINE 10 MG TABLET PO (09:24)
[2022-08-08] MEDS: polyethylene glycoL 3350 17 GM POWD.PACK PO (09:24)
[2022-08-08] MEDS: ACETAMINOPHEN 325 MG TABLET 650 MG PO (09:24)
[2022-08-08 09:48] VITALS: O2SAT 98
[2022-08-08] MEDS: OXYCODONE IR 5 MG TABLET PO (09:55)
[2022-08-08] MEDS: SODIUM CHLORIDE 0.9% 1,000 ML 125 ML IV (09:58)
[2022-08-08 12:00] VITALS: BP 124/68; PULSE 124; RESP 20; TEMP 37; O2SAT 95
--- NOTE | 2022-08-08 12:58 | P.DS_ITS ---
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 Patient was walking into the kitchen last night. Is a baby gate set up to keep the dog out of the trash, and he misstepped through the gate, fell over the gait, and ended up on the kitchen floor. Due to pain in his left side, family was unable to get him for at least 3 hours. No loss of consciousness. Patient was complaining of pain on the left side. He was brought into the emergency department, with labs notable for a white blood cell count of 28.2, creatinine 0.59, normal e lectrolytes. Imaging revealed an acute displaced left intertrochanteric fracture, posterior dislocation of the left elbow, and suspected coronoid process fracture. A large elbow joint effusion was noted. No wrist fracture was noted. Patient was noted to be tachycardic in the apartment but was very anxious and uncomfortable. He did receive a dose of hydrocodone 5 mg, with reported good effect. Admission was recommended. Patient currently complains of having significant pain. He is very anxious. He is asking to be left alone so he can take a nap. He is a difficult historian. Mom is at bedside and notes no recent ill symptoms. Specifically, she denies any fevers, chills, nausea or vomiting, no complaints of upper respiratory infection symptoms. No diarrhea. She states he was at his usual baseline health yesterday. Discharge Providers Provider Date of admission: 08/04/22 08:16 Discharge Date: 08/08/22 Primary care physician: Doctor Gus MD Consults: 08/04/22 14:35 Consult to Discharge Planning Routine Comment: Consult to Discharge Planning Routine Comment: Consult to Occupational Therapy Evaluate & Treat Comment: Physician Instructions: Evaluate and treat Consult to Occupational Therapy Evaluate & Treat Comment: Physician Instructions: Evaluate and treat Consult to Physical Therapy Evaluate & Treat Comment: Physician Instructions: Evaluate and Treat Consult to Physical Therapy Evaluate & Treat Comment: Physician Instructions: post op SUZANNE protocol Consult to Physician Routine Comment: Consulting Provider: Ling Gordon Reason for consultation: Left hip fx, left elbow fx 08/07/22 14:40 Consult to Dietitian, Adult Routine Comment: Reason For Exam: poor diet Discharge provider: Alexy Sharp MD Summary Hospital Course Discharge Diagnosis: 1. Pneumonia 2. UTI 3. Tachycardia 4. Hypoxemic respiratory failure and atelectasis 5. Left hip fracture, fall 6. Left elbow fracture, dislocation 7. Hardik-Taybi syndrome 8. Autism 9. GERD Hospital Course: Mr. Vo came in after a mechanical fall. He fell on his left side and had left hip fracture and left elbow fracture and dislocation. He underwent surgery on 08/04 to repair these with ORIF of hip and closed reduction of elbow. He is ordered for post-op prevention of dvt with aspirin twice a day. He is nonweightbearing on left upper extremity, weightbearing 100lbs on left lower extremity. He should follow up with orthopedic surgery in 2 weeks. He also developed fevers, tachycardia. Workup showed a UTI and possible pneumonia. His lung imaging was negative for PE, but showed possible mild pneumonia and atelectasis. He should complete five more days of antibiotics. He should get up and out of bed as much as able to help his atelectasis. He also had noted GERD and awas started on pantoprazole. Finally he has Hardik-Taybi and autism and he has selective food preferences, so his diet should be liberalized to feed him foods he is familiar with. He was discharged to SNF for PT/OT due to weakness after surgeries and infections. Exam Vital Signs (past 8 hours): - 08/08/22 06:38 08/08/22 09:48 08/08/22 09:20 Temperature 99.7 F H Pulse Rate 117 H Respiratory Rate 18 Blood Pressure 132/75 Pulse Oximetry 98 98 97 Oxygen Delivery Method Nasal Cannula Nasal Cannula Oxygen Flow Rate 2 2 2 08/08/22 09:20 Temperature Pulse Rate Respiratory Rate Blood Pressure Pulse Oximetry Oxygen Delivery Method Nasal Cannula Oxygen Flow Rate Fraction of Inspired Oxygen 32 SaO2/FiO2 Ratio 290 Oxygen Delivery Method Nasal Cannula Oxygen Flow Rate 2 Narrative Exam Narrative: GEN: no acute distress, interactive verbally but some speech delay CV: tachycardic PULM: clear bilaterally ABD: soft, nontender Objective Labs 08/08/22 05:39 08/08/22 05:39 Labs: Laboratory Results - last 24 hr 08/07/22 08/08/22 08/08/22 14:30 05:39 05:39 WBC 14.5 H RBC 2.75 L Hgb 8.5 L Hct 25.2 L MCV 91.4 MCH 30.7 MCHC 33.6 RDW 13.9 Plt Count 256 Sodium 134 L Potassium 3.8 Chloride 106 Carbon Dioxide 20 L BUN 7 L Creatinine 0.49 L Estimated GFR > 60 BUN/Creatinine Ratio 14.3 Glucose 95 Calcium 7.4 L Vancomycin Trough 16.7 PFSH Medical History Autism Hardik-Taybi syndrome Social History household members: family Smoking Status: Never smoker alcohol intake: never Discharge Plan Discharge Plan Patient Disposition: SNF Discharge orders & Medications Prescriptions: New acetaminophen 325 mg Tablet 650 mg PO Q6H Qty: 120 0RF aspirin 81 mg Tablet,Delayed Release (Dr/Ec) 81 mg PO BID Qty: 84 0RF ibuprofen 400 mg Tablet 400 mg PO Q4H Qty: 120 0RF docusate sodium 100 mg Capsule 100 mg PO BID Qty: 30 0RF hydrocodone-acetaminophen 5-325 mg Tablet 1 tab PO Q4H PRN (Reason: Pain, Moderate (4-6)) Qty: 10 0RF ondansetron 4 mg Tablet,Disintegrating 4 mg PO Q4HR PRN (Reason: Nausea) Qty: 20 0RF polyethylene glycol 3350 17 gram Powder In Packet 17 gm PO DAILY PRN (Reason: Constipation) Qty: 20 0RF sennosides [senna] 8.6 mg Tablet 17.2 mg PO BID Qty: 20 0RF levofloxacin 750 mg tablet 750 mg PO DAILY Qty: 5 0RF pantoprazole [Protonix] 40 mg tablet,delayed release (DR/EC) 40 mg PO DAILY Qty: 30 0RF Continued cholecalciferol (vitamin D3) [Vitamin D3] 50 mcg (2,000 unit) Tablet 50 mcg PO DAILY Zyrtec 10 mg Capsule 10 mg PO DAILY [id number] 1 tab PO DAILY olopatadine 0.2 % Drops 1 drp OPHTHALMIC (EYE) QID PRN (Reason: conjunctavitis) Rx Instructions: 1 drop to each eye QID PRN conjuntativis Follow up/Referrals: Miscellaneous,Doctor, MD [Primary Care Provider] - Ling Gordon MD [Physician] - 2 Weeks (Please call to schedule 2 week postoperative follow up with [facility].) Discharge Health Status Multidrug resistant organism: No MDRO Diet/Activity/Treatments Diet: Regular Food texture: Regular Cold/Heat Therapy: Ice to hip as needed Skin/Wound/Dressing Care Report to your healthcare provider any signs of infection, such as:: chills, fever, night sweats, unusual drainage and unusual redness Dressing: Keep dressing clean, dry, and intact until 2 week follow up visit. If it becomes soiled call our office for dressing change. [facility] Reason for rehabilitation: Post-operative therapy Rehab type: Physical therapy Restrictions to mobility: Left arm sling, Nonweightbearing left upper extremity, 100 lbs. left lower extremity Visit Report/Discharge Packet Instructions: DI for Open Reduction Internal Fixation Surgery Stand Alone Forms: Patient Portal/API, Surgery Discharge Discharge Data Primary Care Provider: Doctor Gus Quality VTE Deep Vein Thrombosis/Pulmonary Embolism Present on Admission: No
[2022-08-08 13:00] VITALS: O2SAT 95
[2022-08-08] MEDS: HYDROCODONE/ACET 5/325 TABLET 1 TAB PO (13:07)
--- NOTE | 2022-08-08 13:09 | CM.DPC ---
DCP Discharge SNF Per MD, pt's CT normal and no medical reason for lack of appetite and per Incident Coordinator Consult Monse met with pt and family and determined that due to pt's dx that he is quite particular about what foods he will eat and their preparation as well as drinks but does not have any swallow or eating concerns. Incident Coordinator helped to get food from the kitchen based on pt's preferences. Per RN, pt able to tolerate swallowing his meds. SHIRA met bedside with pt, who was sleeping, and mother and brother and explained role and they confirm that they do not have any concerns with pt discharging to [facility] today and today is better for them as well and would like to keep the 1330 BLS transport time. SHIRA called [facility] admissions and updated on above and plan of discharge via BLS at 1330 today. SHIRA received the return response from the [facility] coordinator in agreement with d/c to SNF today and attached that documentation to the [facility] for scanning into EMR and to send in pt d/c packet. SHIRA updated RN, lath hand, and [facility]. ALLI Stiles kindly faxed signed med list, script, [facility] with the attached documentation, d/c summary, MD orders to [facility] to review. Completed BLS form placed on pt chart. Plan: Patient to d/c to [facility] for SNF rehab via [facility] transport at 1330 before safe return home with family. SURY Young
== END 2022-08-08 13:49 | DRG 480 ==
LOC: ED 06:27 → AC 08:17
PROVIDERS: Internal Medicine; Orthopaedic Surgery; Admitting Provider Family Medicine; Emergency Provider Emergency Medicine; Referring Provider Emergency Medicine; Visit Provider Family Medicine
PROC: 0QS704Z Reposition Left Upper Femur with Internal Fixation Device, Open Approach (ICD-10-PCS; principal; 2022-08-04 09:30)
PROC: 0RSM04Z Reposition Left Elbow Joint with Internal Fixation Device, Open Approach (ICD-10-PCS; 2022-08-04 09:30)
DX: S72.142A Displaced intertrochanteric fracture of left femur, initial encounter for closed fracture (principal); J18.9 Pneumonia, unspecified organism; J96.01 Acute respiratory failure with hypoxia; F84.0 Autistic disorder; Q87.2 Congenital malformation syndromes predominantly involving limbs; N39.0 Urinary tract infection, site not specified; J98.11 Atelectasis; R00.0 Tachycardia, unspecified; S52.122A Displaced fracture of head of left radius, initial encounter for closed fracture; B96.20 Unspecified Escherichia coli [E. coli] as the cause of diseases classified elsewhere; K21.9 Gastro-esophageal reflux disease without esophagitis; W18.30XA Fall on same level, unspecified, initial encounter; Z20.822 Contact with and (suspected) exposure to COVID-19
CPT/HCPCS: 36415; 71045; 71275; 73070; 73090; 73110; 73200; 73502; 73552; 74177; 76000; 80048; 80202; 81001; 85007; 85025; 85027; 87040; 87077; 87086; 87186; 93005; 93010; 94760; 94762; 96374; 97163; 97167; 97530; 99284; C9113; C9290; J0131; J0171; J0330; J0690; J0696; J1170; J1650; J2250; J2270; J2405; J2704; J3010; Q9967

== ENCOUNTER 2022-09-12 11:06 | Day surgery (SDC) | payer MEDICARE, MEDICAID, SELFPAY ==
[2022-08-04 15:35] VITALS: BMI 38.9
[2022-09-12] VITALS (10 sets, daily range): BP systolic 100–134; BP diastolic 54–80; PULSE 103–121; RESP 12–18; TEMP 36.3–36.9; O2SAT 95–100; BMI 34.7
--- NOTE | 2022-09-12 | DI.RAD.S_ITS ---
PROCEDURE: XR ELBOW LT MIN 3V INDICATIONS: CLOSED REDUCTION LEFT ELBOW TECHNIQUE: Multiple views of the elbow were acquired. COMPARISON: [facility], CR, XR ELBOW 1 OR 2 VIEWS LEFT, 08/23/2022, 16:09. [facility] [place], CR, XR ELBOW 1 OR 2 VIEWS LEFT, 09/12/2022, 9:14. FINDINGS: Multiple intraoperative fluoroscopy images demonstrate closed reduction of elbow fracture/dislocation. There are fracture fragment adjacent to the elbow. Old proximal radial and ulnar shaft fracture with internal fixation. IMPRESSION: 1. Elbow dislocation is reduced. Dictated by: Michelle Mohan M.D. on 09/12/2022 at 21:01 Approved by: Michelle Mohan M.D. on 09/12/2022 at 21:03
[2022-09-12] MEDS: LACTATED RINGERS 1,000 ML 84 ML IV (16:27)
--- NOTE | 2022-09-12 17:04 | P.OP.PRE_ITS ---
Pre-operative Note Interval Note History & Physical reviewed/Exam performed by Physician: Yes Changes to H&P: Yes H&P completed within 30 days and has changed as indicated here:: He was noted to have increased difficulty with his left elbow. His elbow was held in an extended position. Got worse after his splint was removed. We ordered an urgent CT scan of his elbow. It showed a recurrent dislocation of his elbow. Consultation was performed with [facility] hand service and upper extremity service has we feel that he requires a complex reconstruction. They confirmed that they could see him within a week but that they would prefer that he be reduced. I had an extensive discussion with Boubacar and his mom in the office and we are going to proceed with a left elbow closed reduction possible but unlikely open reduction.
--- NOTE | 2022-09-12 17:50 | SUR.OPER ---
Supine on padded OR bed, head on pillow, arms secured on padded arm boards at <90 degrees abduction, legs uncrossed, safety belt at thigh, tape over blanket over lower legs.
--- NOTE | 2022-09-12 19:03 | PM.OP.1 ---
Operative Date/Time/Diagnoses Date of procedure: 09/12/22 Time of procedure: 17:20 Pre-op diagnosis: Recurrent left elbow dislocation Post-op diagnosis: same Procedure & Clinicians Procedure: Closed reduction and casting left elbow dislocation Same procedure as scheduled: Yes Indications: This is a complex 46-year-old gentleman with a history of a left elbow fracture dislocation. He has a history of a syndrome which includes ligamentous laxity. 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 He sustained a dislocation of his left elbow with an associated radial head and coronoid process fracture. He previously underwent a closed reduction. After a period of mobilization his splint was discontinued and he redislocated. He is felt to have a complex upper extremity problem and has been referred to [facility] services and has a pending appointment. He is brought to the operating room for closed reduction of his elbow. Surgeon: Ling Gordon Anesthesia Type: General Operative Notes Findings: Adequate reduction confirmed with fluoroscopy. Reduction achieved with traction and hyperflexion. Specimen(s): none sent Blood products transfused: none Procedure in detail: Patient is brought the operating room. A time-out was performed. He underwent induction of a general anesthetic. He was carefully transferred to the fracture table. Left elbow was meticulously reduced with combination of longitudinal traction and flexion. He could be reduced with the reduction confirmed with fluoroscopy in high flexion he was noted to have reasonable stability. Multiple images were taken of the elbow confirming acceptable reduction. He was placed in a long-arm cast and was carefully held in a reduced position. Post casting x-rays showed acceptable reduction. He tolerated the procedure well. Complications: none Post-operative Condition: stable Disposition: observation Plan for aftercare: Continue long-arm cast. Keep appointment scheduled for next week at [facility].
[2022-09-12] MEDS: ASPIRIN EC 81 MG TABLET PO (20:42)
[2022-09-12] MEDS: SENNOSIDES 8.6 MG TABLET 17.2 MG PO (20:42)
[2022-09-12] MEDS: DOCUSATE 100 MG CAPSULE PO (20:42)
[2022-09-12] MEDS: IBUPROFEN 400 MG TABLET PO ×2 (20:42→23:58)
[2022-09-12] MEDS: ACETAMINOPHEN 325 MG TABLET 650 MG PO (20:42)
--- NOTE | 2022-09-12 22:05 | PC.WOUNDPHOT ---
Addendum entered by Janiya Gilliam R.N. 09/12/22 22:09: right heel Original Note:
--- NOTE | 2022-09-12 22:07 | PC.WOUNDPHOT ---
Addendum entered by Janiya Gilliam R.N. 09/13/22 00:10: correction: this is his right toes; note warts on 2nd toe Addendum entered by Janiya Gilliam R.N. 09/12/22 22:09: left foot Original Note:
--- NOTE | 2022-09-12 22:08 | PC.WOUNDPHOT ---
Addendum entered by Janiya Gilliam R.N. 09/13/22 00:09: correction: this is his left heel Addendum entered by Janiya Gilliam R.N. 09/12/22 22:09: right heel Original Note:
--- NOTE | 2022-09-12 22:08 | PC.WOUNDPHOT ---
Addendum entered by Janiya Gilliam R.N. 09/12/22 22:09: left heel Original Note:
--- NOTE | 2022-09-13 00:05 | PC.WOUNDPHOT ---
Addendum entered by Janiya Gilliam R.N. 09/13/22 00:09: right heel Original Note:
[2022-09-13 01:30] VITALS: BP 122/63; PULSE 90; RESP 18; TEMP 36.3; O2SAT 98
--- NOTE | 2022-09-13 04:16 | PC.NURSE ---
Patient is developmentally delayed. He responds to his name, answered yes when asked if he is in the hospital and follows direction but when asked orientation questions states I can't remember. Is very apprehensive with any interaction. Breath sounds CTA with RA sat of 97% but when asleep mouth breathes and snores and O2 sat was intermittently dropping down into 70's but would rebound within a few seconds back to upper 90's. Did place him on oxygen at 2L/min per NC for overnight and sats have been now mostly staying in 90's. HRR but tachy in low 100's although does spike into 120's during interactions. Denies nausea. BT present and abdomen is soft. Was incontinent of urine upon admission and is reportedly incontinent of B&B per mom. Noted to have redness/excoriation of perineum, groin and lower abdominal folds. Pressure ulcers, chronic, on bilateral heels; dressings removed and allevyn dressings applied (see wound photos in chart). Heels are being floated and is being repositioned q2h. Cast to left upper extremity. Good capillary refill and fingers are warm to touch; patient is able to wiggle all fingers and denies tingling/numbness and has sling in place. Has denied pain and has scheduled tylenol + ibuprofen although has been mostly sleeping tonight. Wearing bilateral calf SCD's. Fall risk score is high and bed alarm is activated.
[2022-09-13 05:01] VITALS: BP 144/65; PULSE 97; RESP 16; TEMP 35.8; O2SAT 98
[2022-09-13] MEDS: IBUPROFEN 400 MG TABLET PO ×2 (06:31→11:21)
[2022-09-13] MEDS: ACETAMINOPHEN 325 MG TABLET 650 MG PO (06:32)
--- NOTE | 2022-09-13 08:27 | PM.PNPO.1 ---
Subjective Subjective Date Patient Seen: 09/13/22 Time Patient Seen: 07:55 Interval history: 46 yo male with Hardik-Taybi syndrome and autism. Exam Vital Signs (past 8 hours): - 09/13/22 01:30 09/13/22 05:01 Temperature 97.3 F L 96.5 F L Pulse Rate 90 97 H Respiratory Rate 18 16 Blood Pressure 122/63 144/65 H Pulse Oximetry 98 98 Oxygen Flow Rate 2 2 Oxygen Delivery Method Room Air Oxygen Flow Rate 2 Narrative Exam Narrative: Resting comfortably in bed. NAD. Left long arm cast in place. Moves all fingers left UE. Sensation grossly intact to light touch left UE. Const General: comfortable Orientation: alert Resp Effort & Inspection: normal respiratory effort [facility] Medical History Autism Hardik-Taybi syndrome Social History household members: family Smoking Status: Never smoker alcohol intake: never Assessment & Plan Post-op Postoperative Procedures: Procedures Operation Date: 09/12/22 16:30 Actual Procedure Side Surgeon p Closed Reduction Elbow Left Ling Conor Gordon MD Postoperative day: 1 Postoperative status narrative: Stable status post closed reduction and casting left elbow dislocation Status post open reduction internal fixation left intertrochanteric hip fracture Postoperative plan narrative: Continue long-arm cast. Keep appointment scheduled for next week at [facility]. Weightbearing as tolerated lower extremity. Patient to wear postop shoes and continue decubitus ulcer care bilateral heels. Dr. Gordon has contacted [facility] phone number is [phone] he will be seen urgently in the hand Clinic next week by either Dr. Cr Phelan or Dr. Wagner
[2022-09-13] MEDS: levoFLOXacin 250 MG TABLET 750 MG PO (08:50)
[2022-09-13] MEDS: ASPIRIN EC 81 MG TABLET PO (08:51)
[2022-09-13] MEDS: CHOLECALCIFEROL (VITAMIN D3) 1,000 UNIT TABLET 1000 UNIT PO (08:51)
[2022-09-13] MEDS: SENNOSIDES 8.6 MG TABLET 17.2 MG PO (08:51)
[2022-09-13] MEDS: DOCUSATE 100 MG CAPSULE PO (08:51)
[2022-09-13] MEDS: LORATADINE 10 MG TABLET PO (08:51)
[2022-09-13] MEDS: PANTOPRAZOLE DR 40 MG TABLET PO (08:51)
[2022-09-13] MEDS: SODIUM CHLORIDE 0.9% FLUSH 10 ML IV (08:52)
--- NOTE | 2022-09-13 11:05 | PC.NURSE ---
Addendum entered by Cate Alicea R.N. 09/13/22 11:43: Discussion regarding patient's care occurred at approx 1130 when PA came to CM office. POC in progress. Cate Alicea RN Care Management Original Note: Call placed to ortho PA at approx 1100 on 09/13/22 to determine POC / DC plan - no answer at this time. VM left. Cate Alicea RN Care Management
--- NOTE | 2022-09-13 11:18 | PT.IIE ---
Current Diagnoses Unspecified dislocation of left ulnohumeral joint, initial encounter (09/12/22) Surgery Performed Operation Date: 09/12/22 16:30 Actual Procedures p Closed Reduction Elbow(Left) - Ling Gordon MD Medical History (Last Reviewed 09/13/22 @ 08:29 by Ace Jcak PA-C) Autism Hardik-Taybi syndrome Physical Therapy Inpatient Evaluation/Re-Eval M1 PT/OT-IP Prior Functional Status Start: 09/13/22 14:04 Freq: NEEDED Status: Active Protocol: Document 09/13/22 11:18 AB (Rec: 09/13/22 14:54 AB [id number]) Medical Review Prior Functional Status Medical History Reviewed Yes Communication able to make needs known; needs one step commands and repeated instructions Mobility and Gait pt s/p fall 08/04/22 and sustained a L hip fx and L elbow dislocation and pt underwent L hip ORIF and reduction of L elbow. pt d/c' d to SNF in [place]. pt admitted after re dislocation of L elbow and underwent closed reduction and has a cast and splint on. prior to fall 08/04/22, pt was independent with all mobilities and ambulation without AD per pt's mother: pt able to ambulation using FWW at SNF ~ 80 ft with assistance Social History Household Members family Living Arrangements Mobile home Number of Floors (Floors) One Floor Number of Stairs To Enter/Railing? ramp to enter Home Environment Standard Height Toilet,Tub/ Shower,Ramp Home Equipment Tub Transfer Bench,Grab Bars In Shower M2 PT-IP Current Condition Start: 09/13/22 14:04 Freq: NEEDED Status: Active Protocol: Document 09/13/22 11:18 AB (Rec: 09/13/22 14:54 AB [id number]) Physical Therapy Current Condition Current Condition Evaluation Date 09/13/22 Treatment Diagnosis s/p L elbow dislocation reduction; difficulty in walking Onset Date 09/12/22 M3 PT-IP Subjective Start: 09/13/22 14:04 Freq: NEEDED Status: Active Protocol: Document 09/13/22 11:18 AB (Rec: 09/13/22 14:54 AB [id number]) Subjective Physical Therapy Visit Type Type Initial Evaluation Visit Start Time 11:18 Visit Stop Time 11:48 Total Visit Minutes 30 Number of GASOLINE TRUCK CRANE OPERATOR Visits 0 Physical Therapy Visit Comments Patient Comments needs encouragement to participate but pt's mother in room and able to motivate pt to participate M4 PT-IP Mobility and Gait Start: 09/13/22 14:04 Freq: NEEDED Status: Active Protocol: Document 09/13/22 11:18 AB (Rec: 09/13/22 14:54 AB [id number]) PT-Bed Mobility Assessment Supine to Sit Supine to Sit Maximum Assistance,1 Person Assistance,Bedrails PT-Transfer Assessment Sit to and From Stand Sit to and from Stand Maximum Assistance,1 Person Assistance,Use of Upper Extremities Equipment Transfer Assistive Device Isrrael Walker Orthotic/Prosthetic Devices or Brace: No Transfers Transfer Destination Wheelchair Transfer Technique ambulated Transfer Ability Level of Assist Moderate Assistance,Maximum Assistance,1 Person Assistance ,Use of Upper Extremities Comments Mobility Comments pt supine in bed with LUE cast and sling. pt's mother in room with pt and encouraged pt to participate in PT. pt was PWB of 100# on LLE last hospitalization 08/04/22 but pt's mother stated that pt is now WBAT. PA came in to checked on pt and confirmed that pt is WBAT on LLE and NWB on LUE. pt completed supine to sit max A and max cues. able to sit on EOB CGA. educated pt on how to use hemiwalker. completed sit to stand max A and max cues and ambulated to the chair ~ 5 ft using hemiwalker max A and max cues. agreed to sit on the chair for lunch. positioned on the chair. call light and table placed within reach. Ortho Dr. Gordon stated that pt has bilateral heel wounds and wants something to decrease pressure off pt's heels. informed ortho MD that post-op shoes can be ordered with a heel cut-out wedge. Nurse to dispense post-op shoes. Gait Assessment Gait Gait Assistance Required: Moderate Assistance,Maximum Assistance Distance (Feet) 5 Able to Maintain Weight Bearing Status Yes During Gait Assistive Devices Assistive Device Isrrael Walker Orthotic/Prosthetic Devices or Brace: No Gait Deviations General Gait Pattern Antalgic,Decreased Stride Length,Decreased Feet Clearance,Step-to Gait,Wide Based Gait Factors Limiting Gait Function Factors Limiting Gait Function Decreased Activity Tolerance, Decreased Strength,Difficulty Following Directions,Limited Range of Motion,Pain,Poor Balance,Poor Safety Awareness PT-Balance Assessment Sitting Balance and Reactions Static Sitting Balance Ability Good Dynamic Sitting Balance Ability Fair Standing Balance and Reactions Static Standing Balance Ability Poor Dynamic Standing Balance Ability Poor Device Used hemiwalker M5 PT-IP Objective Assessments Start: 09/13/22 14:04 Freq: NEEDED Status: Active Protocol: Document 09/13/22 11:18 AB (Rec: 09/13/22 14:54 AB [id number]) Orientation Orientation/Cognition Level of Alertness Alert Orientation Name Safety Awareness Decreased Safety Awareness Memory Description Short Term Impaired,Fpc Impaired Comments pt has Hardik-Taybi syndrome and has cognitive delay Gross Range of Motion Upper Extremity ROM Impairments LUE on a cast and sling on Lower Extremity ROM Assessment Within Functional Limits Strength Lower Extremity Strength Assessment Left Impaired Hip 3+/5 Knee 4-/5 Sensation Assessment Sensation Gross Sensation WNL Muscle Tone Muscle Tone WNL Yes M6 PT-IP Treatment Start: 09/13/22 14:04 Freq: NEEDED Status: Active Protocol: Document 09/13/22 11:18 AB (Rec: 09/13/22 14:54 AB [id number]) Physical Therapy Treatment Education Education Provided Safety M7 PT-IP Assessment and Plan Start: 09/13/22 14:04 Freq: NEEDED Status: Active Protocol: Document 09/13/22 11:18 AB (Rec: 09/13/22 14:54 AB [id number]) PT Summary Assessment and Plan Potential Rehabilitation Potential Fair Status of Condition at Evaluation Evolving Summary Assessment Summary pt in SNF since 08/08/22 after LLE ORIF and elbow dislocation reducation but now admitted back to the hospital 09/12/22 after re-dislocation of L elbow and underwent closed reducation. pt now has a cast on LUE and a sling. pt is WBAT on LLE and NWB on LUE. pt requiring max A with bed mobility, transfers and ambulation using hemiwalker. pt plans to go back to SNF. Goals Bed Mobility Goal Contact Guard Assistance Transfer Goal Contact Guard Assistance Gait Goal Contact Guard Assistance,Isrrael Walker Gait Distance 100 Other Goals improve bed mobility, transfers and ambulation using SPC SBA 250 ft Days to Meet Goals 10 Frequency of Treatment Frequency Of Treatment Once a Day Treatment Plan Physical Therapy Treatment Plan Bed Mobility Training,Transfer Training,Gait Training, Therapeutic Exercise,Balance Retraining,Post Op Education, Discharge Planning,Hot or Cold Pack,Neuromuscular Re-ed, Coordination Retraining,Manual Therapy Weight Bearing Status Weight Bearing Status Non-Weight Bearing Allowed Weight Bearing Amount (enter % LUE NWB or #) (%) Recommendations To Nursing Amount of Assist Needed 1 Person Assist Discharge Recommendations PT Discharge Recommendations SNF Rehab Transportation Needs at Discharge Wheelchair/Cabulance
--- NOTE | 2022-09-13 11:54 | P.DS_ITS ---
History of Present Illness History of Present Illness Date Patient Seen: 09/13/22 Time Patient Seen: 11:54 Chief complaint: elbow pain Narrative: See progress note Discharge Providers Provider Discharge Date: 09/13/22 Primary care physician: Doctor Gus MD Consults: 09/12/22 19:22 Consult to Discharge Planning Routine Comment: Consult to Inpatient Wound Care Nurse Routine Comment: Reason for consultation: bilateral heel decubiti Has provider been notified: Yes Consult to Physical Therapy Evaluate & Treat Comment: Physician Instructions: Evaluate and Treat Discharge provider: Ace Jack PA-C Summary Hospital Course Discharge Diagnosis: Recurrent left elbow dislocation Status post open reduction internal fixation left intertrochanteric hip fracture August 04, 2022 Bilateral heel decubitus ulcers Hospital Course: Closed reduction and casting left elbow dislocation Same procedure as scheduled: Yes Indications: This is a complex 46-year-old gentleman with a history of a left elbow fracture dislocation.? He has a history of a syndrome which includes ligamentous laxity.? 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 He sustained a dislocation of his left elbow with an associated radial head and coronoid process fracture.? He previously underwent a closed reduction.? After a period of mobilization his splint was discontinued and he redislocated.? He is felt to have a complex upper extremity problem and has been referred to [facility] hand services and has a pending appointment.? He is brought to the operating room for closed reduction of his elbow. Surgeon: Ling Gordon Anesthesia Type: General Operative Notes Findings: Adequate reduction confirmed with fluoroscopy.? Reduction achieved with traction and hyperflexion. Specimen(s): none sent Blood products transfused: none Procedure in detail: Patient is brought the operating room.? A time-out was performed.? He underwent induction of a general anesthetic.? He was carefully transferred to the fracture table.? Left elbow was meticulously reduced with combination of longitudinal traction and flexion.? He could be reduced with the reduction confirmed with fluoroscopy in high flexion he was noted to have reasonable stability.? Multiple images were taken of the elbow confirming acceptable reduction.? He was placed in a long-arm cast and was carefully held in a reduced position.? Post casting x-rays showed acceptable reduction.? He tolerated the procedure well. Complications: none Post-operative Condition: stable Disposition: observation Plan for aftercare: Continue long-arm cast.? Keep appointment scheduled for next week at [facility]. Patient admitted to the hospital for the above-mentioned procedure. Patient consented to the same. Patient taken to the operating room on September 12, 2022 underwent closed reduction and casting left elbow dislocation. Patient was found to have bilateral heel decubitus ulcers. Per patient's mother these were present prior to discharge after prior surgery on August 04, 2022. Patient will continue cast and be nonweightbearing left upper extremity. Patient can be full weight-bearing lower extremity. Decubitus ulcer care bilateral heels. Postop shoes to be worn to decrease pressure on heels when ambulating. Closed reduction and casting left elbow dislocation Same procedure as scheduled: Yes Disposition: observation Plan for aftercare: Continue long-arm cast.? Keep appointment scheduled for next week at [facility]. Patient to follow-up with [facility]. Phone number is [phone]. Patient will be scheduled urgently to be seen by Dr. Cr Phelan and Dr. Wagner Nonweightbearing left upper extremity. Full weight-bearing bilateral lower extremities. Needs decubitus ulcer care and wear postop shoes to reduce pressure on bilateral heels. Discharge back to [facility] could feel today in stable condition. Exam Vital Signs (past 8 hours): - 09/13/22 05:01 Temperature 96.5 F L Pulse Rate 97 H Respiratory Rate 16 Blood Pressure 144/65 H Pulse Oximetry 98 Oxygen Flow Rate 2 Oxygen Delivery Method Room Air Oxygen Flow Rate 2 Narrative Exam Narrative: See progress note PFSH Medical History Autism Hardik-Taybi syndrome Social History household members: family Smoking Status: Never smoker alcohol intake: never Discharge Assessment & Plan Assessment and Plan Assessment: left elbow dislocation Plan of Treatment: Continue cast, nonweightbearing left upper extremity follow-up with [facility] as mentioned Follow-up was scheduled [facility] in 2 weeks for hip May be full weight-bearing bilateral lower extremities Discharge Plan Discharge Plan Patient Disposition: SNF Other facility: [facility] Transportation: Facility vehicle I certify the postop hospital [facility] care is medically necessary on a continuing basis for any conditions for which he/ she received care during this hospitalization.: Yes The receiving facility has agreed to accept transfer and provide medical treatment.: Yes Discharge orders & Medications Prescriptions: Continued cholecalciferol (vitamin D3) [Vitamin D3] 50 mcg (2,000 unit) Tablet 50 mcg PO DAILY Zyrtec 10 mg Capsule 10 mg PO DAILY [id number] 1 tab PO DAILY olopatadine 0.2 % Drops 1 drp OPHTHALMIC (EYE) QID PRN (Reason: conjunctavitis) Rx Instructions: 1 drop to each eye QID PRN conjuntativis acetaminophen 325 mg Tablet 650 mg PO Q6H Qty: 120 0RF aspirin 81 mg Tablet,Delayed Release (Dr/Ec) 81 mg PO BID Qty: 84 0RF ibuprofen 400 mg Tablet 400 mg PO Q4H Qty: 120 0RF docusate sodium 100 mg Capsule 100 mg PO BID Qty: 30 0RF hydrocodone-acetaminophen 5-325 mg Tablet 1 tab PO Q4H PRN (Reason: Pain, Moderate (4-6)) Qty: 10 0RF ondansetron 4 mg Tablet,Disintegrating 4 mg PO Q4HR PRN (Reason: Nausea) Qty: 20 0RF polyethylene glycol 3350 17 gram Powder In Packet 17 gm PO DAILY PRN (Reason: Constipation) Qty: 20 0RF sennosides [senna] 8.6 mg Tablet 17.2 mg PO BID Qty: 20 0RF levofloxacin 750 mg tablet 750 mg PO DAILY Qty: 5 0RF pantoprazole [Protonix] 40 mg tablet,delayed release (DR/EC) 40 mg PO DAILY Qty: 30 0RF Follow up/Referrals: Miscellaneous,MD Julián [Primary Care Provider] - ([facility] [phone] Dr Cr Phelan or Dr. Wagner urgently) Ling Gordon MD [Physician] - (2 weeks for left femoral neck fracture) Discharge Health Status Care Plan Goals: Patient will need definitive treatment at [facility] phone number is [phone] Dr. Gordon is talked to the department directly and confirmed that they will get admitted on urgent basis. Dr. Cr Phelan or Dr. Wagner Multidrug resistant organism: No MDRO Diet/Activity/Treatments Diet: Diet as Tolerated Activity: WBAT LE, Nonweightbearing left upper extremity Skin/Wound/Dressing Care Report to your healthcare provider any signs of infection, such as:: chills, fever, night sweats, increased pain, unusual drainage and unusual redness Dressing: Keep cast in place, keep left leg incisions clean and dry Other wound treatment: Decubitus ulcers both heels wear postop shoes Special Rehabilitation Services Reason for rehabilitation: Post-operative therapy Rehab type: Physical therapy and Occupational therapy Visit Report/Discharge Packet Stand Alone Forms: Surgery Discharge Discharge Data Primary Care Provider: Miscellaneous,Doctor Attending Provider: Ling Gordon
--- NOTE | 2022-09-13 13:48 | CM.DANOTE ---
DCP Assessment Note: Patient is a 46yo Male with a history of autism and Rubinsein-Taybi syndrome. Here for left elbow surgery with Dr. Gordon on 09/12/22. PCP: Thalia(?) LINDA at clinic in [place] Payer: medicare and medicaid CHIEF LOCK TENDER OPERATOR reviewed EMR. Patient was here 08/04-08/08 and underwent left hip surgery. He was d/c from here to [facility] on 08/08 via BLS transport. From nursing staff and chart, there was some confusion where patient was coming from today. Transport from [facility](?) called CHIEF LOCK TENDER OPERATOR to inquire about pickling drum operator time. CHIEF LOCK TENDER OPERATOR reported that a specific d/c time was unclear at this time. CHIEF LOCK TENDER OPERATOR attempted to call mom/DPOA Bibi ([phone]) and [facility]. Per LINDA Jack, it became clear that patient was coming to us today from [facility]. LINDA Jack came and spoke with CHIEF LOCK TENDER OPERATOR and UR RN Cate Dela Cruz re: patient's current status. Due to [facility] status and PA determining patient is medically cleared to d/c today, the team determined d/c back to SNF was safe and medically appropriate discharge plan. CHIEF LOCK TENDER OPERATOR entered room and introduced self and role. Patient was accompanied by mom, Bibi. Bibi reported she understood the plan was for him to d/c back to [facility] to continue treatment for previous hip surgery when cleared for d/c. CHIEF LOCK TENDER OPERATOR called Mera at [facility] and [facility] re: patient being cleared to d/c back to SNF. Plan: d/c back to [facility] today 09/13. CM team waiting to hear back from [facility]. CM team will continue to follow closely. Transport likely in facility wheelchair van. SURY Pelaez Discharge Planning/Care Management Advanced directive, confirm from FAMILY Start: 09/12/22 18:54 Freq: Q24H Status: Active Protocol: Document 09/12/22 18:54 EM (Rec: 09/12/22 18:54 EM [id number]) Advance Directive, confirm on record Time 18:54 Person contacted Bibi Copy received No CM Discharge Assessment Start: 09/13/22 13:42 Freq: Status: Active Protocol: Document 09/13/22 13:42 SL (Rec: 09/13/22 13:48 [id number]) Discharge Planning Assessment Assigned Sifting Operator SURY Kimbrough DPOA/Assigned Designee Name Bibi (mother) Contact Information [phone] Advance Directives? No Advance Directives on File No History Provided By Patient,Family Member,Medical Record Comment patient was here 08/08/22 for hip surgery. d/c'ed to [facility]. Prior Living Arrangements Skilled Nurse Facility Comment prior to [facility], lived at home with mom. Household Members family Type of transporation used prior to Relies on Others admit Willing to Return to Facility? Yes Independent with ADL's No Is patient alert and oriented? No Needs Assistance With Bathing,Grooming,Meal Prep, Managing Medications,Home Chores / Shopping Comment patient has a history of autism and chester-taybi syndrome. DME Already Rented / Owned Wheelchair,FWW / Walker Comment wheelchair ramp at house. Patient/Family Preference [facility] Facility Comment return to [facility] for SNF rehab Barriers to Discharge No Discharge Plan Prison Facility Transportation Arrangement Family Referrals Initiated Prison Additional Comment [facility] first choice Comment PASSR not needed due to returning to SNF Has Agency SNF been contacted Yes Whiteboard Updated in Patient Room with Yes name and ext. # of Sifting Operator Review Status In Process Next Review Type Continued Stay Review
--- NOTE | 2022-09-13 13:55 | CM.DPNOTE ---
DC Note DC Summary and med list completed by Claudia Jack with the intention that patient would return to [facility] today for addtl rehab (recent hip repair). Assisting APPRAISAL COORDINATOR Kaylan with this coordination According to KATE Rocha, no DC order from either Dr Gordon or Claudia Jack. Claudia MCKEON had completed all DC ppk and had not completed DC order (?) Placed call to the OR, spoke with Mabel. Explained patient needs DC order so that he can be released back to SNF this afternoon. Mabel received verbal order from DR Gordon for patient's discharge, which this APPRAISAL COORDINATOR submitted into [employer] Placed call to Mera at [facility] to update on DC order and she confirmed her transport was on the way and requested DC Summary and visit report, no need to send PASRR, no need for med list as all medications were being continued - all requested ppk faxed Updated KATE Rocha who spoke with patient and mom about plan, all aware and agreeable Plan: Discharge back to [facility] for continued rehab via facility transport JW
== END 2022-09-13 13:58 ==
LOC: OR 11:08 → AC 17:31
PROVIDERS: Referring Provider Orthopaedic Surgery; Visit Provider Orthopaedic Surgery
PROC: (CPT 24605; principal; 2022-09-12 16:30)
DX: S53.105A Unspecified dislocation of left ulnohumeral joint, initial encounter (principal); M24.422 Recurrent dislocation, left elbow
CPT/HCPCS: 24605; 73080; 76000; 97162; J2405; J2704; J3010

== ENCOUNTER 2022-12-27 10:54 | Outpatient (RCR) | payer MEDICARE, MEDICAID, SELFPAY ==
[2022-09-12 18:49] VITALS: BMI 34.7
--- NOTE | 2022-12-27 19:04 | PT.OIE ---
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 (12/27/22) Unspecified fracture of lower end of left humerus, subsequent encounter for fracture with routine healing (12/27/22) Past Medical History (Last Reviewed 09/13/22 @ 08:29 by Ace Jack PA-C) Autism Hardik-Taybi syndrome Visit Care Team Role Provider Type Thalia Torres PA-C Family Provider Non-Staff Primary Care Provider Specialty: Medical Address: [address] [place], [place] [address]julianne Nixon, [facility] [address], [place], [address] Email: Cr Phelan MD Attending Provider Non-Staff Referring Provider Specialty: Orthopedic Surgery Address: [address] [place] [address], [id number] Email: Physical Therapy Initial Evaluation PT-OP-A Visit Information Start: 12/21/22 17:27 Freq: Status: Active Protocol: Document 12/27/22 11:16 LRN (Rec: 12/27/22 12:35 LRN [id number]) Out-Patient Physical Therapy Visit Information Visit Information Visit Type Initial Evaluation Visit Start Time 11:16 Visit Stop Time 12:11 Total Visit Minutes 55 Visit Number 1 Evaluation Information Evaluation Date 12/27/22 Precautions Precautions Hardik-taybi syndrome with small amount of Autism, decubitus pressure ulcers on L foot, L SUZANNE PT-OP-B Current Condition Start: 12/21/22 17:27 Freq: Status: Active Protocol: Document 12/27/22 11:16 LRN (Rec: 12/27/22 12:35 LRN [id number]) Current Condition History of Current Condition Onset Date July 2022 Current Complaints Pt not verbalizing; Mother reports limitined L UE use due to L elbow fx History of Current Condition Pt attends therapy with referral for hand therapy for 47 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 Per mother report: Pt suffered a R radial and ulnar elbow fracture/dislocation after fall at home July 27, 2022, with L SUZANNE surgery the next day by Dr. Gordon and referral to Dr. Phelan for L elbow fx. Dr. Phelan did a surgery at end of August to prevent dislocations. Was told he may have tendons and ligaments that were torn which may be a reason for dislocations. Dislocated total of 3 additional times before the last surgery and 1x with cast on. Pt has had 3 elbow surgeries with the last surgery October 2022 with brace put on 12/10/22. Dr. Phelan in [facility] will assess pt for surgery in March. Mother states x-ray taken at [facility] showed he had worn the radial head off. Date or last visit with Dr. Phelan . Mother was told pt could take the cast off to shower, but not to move the elbow. States pt has swelling at elbow and 2 abrasions on the elbow from the cast and brace. Mother is not sure what PT is for. Prior Treatments and Tests After last surgery with Dr. Phelan he spent 3 months in rehab in [place] and Home health PT for 2 months (Nov- Dec) ending this week. Future Testing and Treatments Planned Dr. Phelan next visit in March. 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 Step to gait with anne- walker, L ankle brace to relieve decubitus ulcer pressure, L SUZANNE. Pt has been receiving home health physical therapy for his L shoulder, L hip, and 4 toes on L foot. Ended with active flexion of 110 deg's yesterday. Treatment Goals Patient/Caregiver Goals Pt/mother goal: Placing the pt on a HEP for L hand ROM and strengthening. Prior Functional Status Baseline Function- Other Normal L hand mobility. Current Functional Impairments (Reported) Functional Limitations- ADL's Limited with L UE use due to elbow brace. 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 PT-OP-H Neuro Start: 12/21/22 17:27 Freq: Status: Active Protocol: Document 12/27/22 11:16 LRN (Rec: 12/27/22 12:35 LRN [id number]) Sensation Evaluation Comments Summary Comments Unknown if intact sensation. Pt withdrawls when touched and pt not verbally answering questions. PT-OP-K Range of Motion Start: 12/21/22 17:27 Freq: Status: Active Protocol: Document 12/27/22 11:16 LRN (Rec: 12/27/22 12:35 LRN [id number]) Shoulder Goniometric Range of Motion Shoulder Left Active Shoulder ROM WFL No Testing Position Sitting Flexion 85 Finger Goniometric Range of Motion Finger Right Fifth Finger ROM WFL Yes Comments [place] neck deformity with extension at joints. Right Fourth Finger ROM WFL Yes Comments [place] neck deformity with extension at joints. Right Third Finger ROM WFL Yes Comments [place] neck deformity with extension at joints. Right Second Finger ROM WFL Yes Comments [place] neck deformity with extension at joints. Left Fifth Finger ROM WFL No Comments Pt able to 90% flex MCP & PIP and DIP jts into a fist. Pt lacks opposition with 5th digit. [place] neck deformity with extension at joints. Left Fourth Finger ROM WFL No Comments Pt able to 90% flex MCP & PIP and DIP jts into a fist. [place] neck deformity with extension at joints. Left Third Finger ROM WFL No Comments Pt able to 90% flex MCP & PIP and DIP jts into a fist. Left Second Finger ROM WFL No Comments Pt able to 90% flex MCP & PIP and DIP jts into a fist. Mild [place] neck deformity with full extension at joints. Finger ROM Limitations Finger ROM Limitations Soft Tissue Tightness Comments L fingers limited with active abduction. PT-OP-M Strength Start: 12/21/22 17:27 Freq: Status: Active Protocol: Document 12/27/22 11:16 LRN (Rec: 12/27/22 12:35 LRN [id number]) Shoulder Strength Shoulder Manual Muscle Testing Left Flexion 2 Poor Comments Pt able to partially lift arm against gravity with elbow brace in place. Finger/Thumb Strength Finger Manual Muscle Testing Right Fifth Comments Flex & AD strength is 5/5. Pt did not tolerate further strength testing. Right Fourth Comments Flex strength is 5/5 AD strength is 4/5 Pt did not tolerate further strength testing. Right Third Comments Flex strength is 5/5 AD strength is 4/5 Pt did not tolerate further strength testing. Right Second Comments Flex & AD strength is 5/5 Pt did not tolerate further strength testing. Left Fifth Comments Flex & AD strength is 3/5 Pt did not tolerate further strength testing. Left Fourth Comments Flex & AD strength is 3/5 Pt did not tolerate further strength testing. Left Third Comments Flex & AD strength is 3/5 Pt did not tolerate further strength testing. Left Second Comments Flex & AD strength is 3/5 Pt did not tolerate further strength testing. Hand Floor Plan Adjuster/Pinch Strength Hand Dominance Hand Dominance Right PT-OP-Q Treatments Start: 12/21/22 17:27 Freq: Status: Active Protocol: Document 12/27/22 11:16 LRN (Rec: 12/27/22 12:35 LRN [id number]) Self-Care/Home Management Treatment Education Other Education Discussed results of evaluation. Extra time taken , with mother/guardian helping pt, discuss and determine goal and plan of care (POC). Pt/guardian agreeable to goal and POC. PT-OP-T Assessment and Plan Start: 12/21/22 17:27 Freq: Status: Active Protocol: Document 12/27/22 11:16 LRN (Rec: 12/27/22 12:35 LRN [id number]) Physical Therapy Assessment Rehab Potential Rehabilitation Potential Good Evaluation Complexity Number of Personal Factors/Comorbidities 3 or More Number of Body Systems Impaired 4 or More Clinical Presentation at Evaluation Evolving Impairments Impairments Activity Tolerance,Pain,ROM, Strength 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 Goals One Impairment Lacks self care HEP of hand exercises. Short Term Goal (STG) Pt and mother will be educated and independent in a self care HEP of finger ROM ex's. STG Duration 1 week-01/04/23 Preparation Supervisor Canning Goal (LTG) Pt and mother will be educated and independent in a self care HEP of finger strengthening ex's. LTG Duration 3wks-01/18/23 Assessment Summary Assessment Pt is a 47 yo male who attends with his mother who is his caregiver and guardian. The pt is verbal but does not always respond appropriately to questions or requests. The pt often repeated no when asked to perform motions that he visibly could mimic. He demonstrates 80-90% L hand finger mobility (in L elbow brace). I was unable to assess the pt's L hand strength due to pt not following directions. Thumb mobility and strength was not assessed due to pt reaching his patience level and requesting leaving. The pt is able to follow some directioins with encouragement of his mother. As discussed in the presence of the pt, his ability to come to therapy and participate appears difficult for the patient; therefore it was decided to place the pt on a HEP with his mother assisting in exercise in 2 visits, but may take 3 visits depending on the pt's ability to tolerate exercise and treatment. The pt will benefit from physical therapy for progression onto a hand exercise program. It was recommended that the pt seek a certified hand specialist for hand or elbow therapy once he is weened from his elbow brace, as further splinting may be needed. Physical Therapy Plan Frequency and Duration Frequency of Treatment 1x/Week Duration of treatment (weeks) 3 Plan of Care Start Date 12/27/22 Plan of Care End Date 01/18/23 Therapeutic Interventions Therapeutic Interventions Home Exercise Program,Patient/ Caregiver Education,Self-Care/ Home Management,Therapeutic Exercises Modalities Cold Pack/Ice Massage,Hot Packs Next Visit Focus/Plan Next Note Type Treatment Note Next Visit Plan Assess thumb mobility/strength . Education and training of pt and mother in HEP of finger AROM ex's. Education and training of pt and mother in HEP of active finger strengthening exercises .
--- NOTE | 2022-12-27 19:05 | PT.OPPOC ---
Physical, Occupational & Speech Therapy At 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 (12/27/22) Unspecified fracture of lower end of left humerus, subsequent encounter for fracture with routine healing (12/27/22) Visit Care Team Role Provider Type Thalia Torres PA-C Family Provider Non-Staff Primary Care Provider Specialty: Medical Address: [facility] Valarie Nixon, [facility] [address], [place], [address] Email: Cr Phelan MD Attending Provider Non-Staff Referring Provider Specialty: Orthopedic Surgery Address: [address] [place] [address], [id number] Email: Plan Of Care PT-OP-T Assessment and Plan Start: 12/21/22 17:27 Freq: Status: Active Protocol: Document 12/27/22 11:16 LRN (Rec: 12/27/22 12:35 LRN [id number]) Physical Therapy Assessment Rehab Potential Rehabilitation Potential Good Evaluation Complexity Number of Personal Factors/Comorbidities 3 or More Number of Body Systems Impaired 4 or More Clinical Presentation at Evaluation Evolving Impairments Impairments Activity Tolerance,Pain,ROM, Strength 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 Goals One Impairment Lacks self care HEP of hand exercises. Short Term Goal (STG) Pt and mother will be educated and independent in a self care HEP of finger ROM ex's. STG Duration 1 week-01/04/23 Electronics Supervisor Goal (LTG) Pt and mother will be educated and independent in a self care HEP of finger strengthening ex's. LTG Duration 3wks-01/18/23 Assessment Summary Assessment Pt is a 47 yo male who attends with his mother who is his caregiver and guardian. The pt is verbal but does not always respond appropriately to questions or requests. The pt often repeated no when asked to perform motions that he visibly could mimic. He demonstrates 80-90% L hand finger mobility (in L elbow brace). I was unable to assess the pt's L hand strength due to pt not following directions. Thumb mobility and strength was not assessed due to pt reaching his patience level and requesting leaving. The pt is able to follow some directioins with encouragement of his mother. As discussed in the presence of the pt, his ability to come to therapy and participate appears difficult for the patient; therefore it was decided to place the pt on a HEP with his mother assisting in exercise in 2 visits, but may take 3 visits depending on the pt's ability to tolerate exercise and treatment. The pt will benefit from physical therapy for progression onto a hand exercise program. It was recommended that the pt seek a certified hand specialist for hand or elbow therapy once he is weened from his elbow brace, as further splinting may be needed. If you have any questions or concerns please feel free to contact me at [facility] at . Physical Therapy Plan Frequency and Duration Frequency of Treatment 1x/Week Duration of treatment (weeks) 3 Plan of Care Start Date 12/27/22 Plan of Care End Date 01/18/23 Therapeutic Interventions Therapeutic Interventions Home Exercise Program,Patient/ Caregiver Education,Self-Care/ Home Management,Therapeutic Exercises Modalities Cold Pack/Ice Massage,Hot Packs Next Visit Focus/Plan Next Note Type Treatment Note Next Visit Plan Assess thumb mobility/strength . Education and training of pt and mother in HEP of finger AROM ex's. Education and training of pt and mother in HEP of active finger strengthening exercises . Plan of Care Dates Plan of Care Start Date 12/27/22 Plan of Care End Date 01/18/23 Electronically Signed by: Yady Darby, PT 12/27/22 3319 If you are in agreement with this Plan of Care, please return a signed and dated copy. I have reviewed this Plan of Care and certify that the skilled therapy services above are required to meet the patient?s needs. Physician Signature Date Printed Name and Credentials Clinical Instructor Signature Printed Name and Credentials
--- NOTE | 2023-01-18 07:52 | PT.OPDS ---
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 (12/27/22) Unspecified fracture of lower end of left humerus, subsequent encounter for fracture with routine healing (12/27/22) Visit Care Team Role Provider Type Thalia Torres PA-C Family Provider Non-Staff Primary Care Provider Specialty: Medical Address: [facility] [address], [place], [address] Email: Cr Phelan MD Attending Provider Non-Staff Referring Provider Specialty: Orthopedic Surgery Address: [address] [place] [address], [id number] Email: Visit Number Visit Number 1 Discharge Summary PT-OP-B Current Condition Start: 12/21/22 17:27 Freq: Status: Active Protocol: Document 12/27/22 11:16 LRN (Rec: 12/27/22 12:35 LRN [id number]) Current Condition History of Current Condition Onset Date July 2022 Current Complaints Pt not verbalizing; Mother reports limitined L UE use due to L elbow fx History of Current Condition Pt attends therapy with referral for hand therapy for 47 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 Per mother report: Pt suffered a R radial and ulnar elbow fracture/dislocation after fall at home July 27, 2022, with L SUZANNE surgery the next day by Dr. Gordon and referral to Dr. Phelan for L elbow fx. Dr. Phelan did a surgery at end of August to prevent dislocations. Was told he may have tendons and ligaments that were torn which may be a reason for dislocations. Dislocated total of 3 additional times before the last surgery and 1x with cast on. Pt has had 3 elbow surgeries with the last surgery October 2022 with brace put on 12/10/22. Dr. Phelan in [facility] will assess pt for surgery in March. Mother states x-ray taken at [facility] showed he had worn the radial head off. Date or last visit with Dr. Phelan . Mother was told pt could take the cast off to shower, but not to move the elbow. States pt has swelling at elbow and 2 abrasions on the elbow from the cast and brace. Mother is not sure what PT is for. Prior Treatments and Tests After last surgery with Dr. Phelan he spent 3 months in rehab in [place] and Home health PT for 2 months (Nov- Dec) ending this week. Future Testing and Treatments Planned Dr. Phelan next visit in March. 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 Step to gait with anne- walker, L ankle brace to relieve decubitus ulcer pressure, L SUZANNE. Pt has been receiving home health physical therapy for his L shoulder, L hip, and 4 toes on L foot. Ended with active flexion of 110 deg's yesterday. Treatment Goals Patient/Caregiver Goals Pt/mother goal: Placing the pt on a HEP for L hand ROM and strengthening. Prior Functional Status Baseline Function- Other Normal L hand mobility. Current Functional Impairments (Reported) Functional Limitations- ADL's Limited with L UE use due to elbow brace. 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 PT-OP-H Neuro Start: 12/21/22 17:27 Freq: Status: Active Protocol: Document 12/27/22 11:16 LRN (Rec: 12/27/22 12:35 LRN [id number]) Sensation Evaluation Comments Summary Comments Unknown if intact sensation. Pt withdrawls when touched and pt not verbally answering questions. PT-OP-K Range of Motion Start: 12/21/22 17:27 Freq: Status: Active Protocol: Document 12/27/22 11:16 LRN (Rec: 12/27/22 12:35 LRN [id number]) Shoulder Goniometric Range of Motion Shoulder Left Active Shoulder ROM WFL No Testing Position Sitting Flexion 85 Finger Goniometric Range of Motion Finger Right Fifth Finger ROM WFL Yes Comments [place] neck deformity with extension at joints. Right Fourth Finger ROM WFL Yes Comments [place] neck deformity with extension at joints. Right Third Finger ROM WFL Yes Comments [place] neck deformity with extension at joints. Right Second Finger ROM WFL Yes Comments [place] neck deformity with extension at joints. Left Fifth Finger ROM WFL No Comments Pt able to 90% flex MCP & PIP and DIP jts into a fist. Pt lacks opposition with 5th digit. [place] neck deformity with extension at joints. Left Fourth Finger ROM WFL No Comments Pt able to 90% flex MCP & PIP and DIP jts into a fist. [place] neck deformity with extension at joints. Left Third Finger ROM WFL No Comments Pt able to 90% flex MCP & PIP and DIP jts into a fist. Left Second Finger ROM WFL No Comments Pt able to 90% flex MCP & PIP and DIP jts into a fist. Mild [place] neck deformity with full extension at joints. Finger ROM Limitations Finger ROM Limitations Soft Tissue Tightness Comments L fingers limited with active abduction. PT-OP-M Strength Start: 12/21/22 17:27 Freq: Status: Active Protocol: Document 12/27/22 11:16 LRN (Rec: 12/27/22 12:35 LRN [id number]) Shoulder Strength Shoulder Manual Muscle Testing Left Flexion 2 Poor Comments Pt able to partially lift arm against gravity with elbow brace in place. Finger/Thumb Strength Finger Manual Muscle Testing Right Fifth Comments Flex & AD strength is 5/5. Pt did not tolerate further strength testing. Right Fourth Comments Flex strength is 5/5 AD strength is 4/5 Pt did not tolerate further strength testing. Right Third Comments Flex strength is 5/5 AD strength is 4/5 Pt did not tolerate further strength testing. Right Second Comments Flex & AD strength is 5/5 Pt did not tolerate further strength testing. Left Fifth Comments Flex & AD strength is 3/5 Pt did not tolerate further strength testing. Left Fourth Comments Flex & AD strength is 3/5 Pt did not tolerate further strength testing. Left Third Comments Flex & AD strength is 3/5 Pt did not tolerate further strength testing. Left Second Comments Flex & AD strength is 3/5 Pt did not tolerate further strength testing. 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 Short Term Goal (STG) Pt and mother will be educated and independent in a self care HEP of finger ROM ex's. STG Duration 1 week-01/04/23 (01/18/23: NOT MET GOAL) Shoe Folder Goal (LTG) Pt and mother will be educated and independent in a self care HEP of finger strengthening ex's. LTG Duration 3wks-01/18/23 (01/18/23: NOT MET GOAL) Assessment Summary Assessment Pt was seen for initial evaluation 12/27/22 and had not yet been seen for physical therapy treatments. Msg received 01/08/23 that pt was admitted to ICU and will be doing home health PT before returning to outpt PT with new orders. Pt is being discharged from outpt PT. Physical Therapy Plan Discharge Physical Therapy Discharge Reasons Change in Medical Status Discharge Comments Thank you for your referral.
== END 2023-01-21 10:16 | disposition home or self-care (01) ==
LOC: PHYS 10:54
PROVIDERS: Family Provider Physician Assistant; PCP Physician Assistant; Referring Provider Orthopaedic Surgery Hand Surgery; Visit Provider Orthopaedic Surgery Hand Surgery
DX: S42.402D Unspecified fracture of lower end of left humerus, subsequent encounter for fracture with routine healing (principal); Q87.2 Congenital malformation syndromes predominantly involving limbs
CPT/HCPCS: 97162; 97535

== ENCOUNTER 2022-12-28 13:58 | Emergency (ER) | payer MEDICARE, MEDICAID, SELFPAY ==
[2022-09-12 18:49] VITALS: BMI 34.7
--- NOTE | 2022-12-28 14:08 | DI.RAD.S_ITS ---
PROCEDURE: XR KNEE LT 3V INDICATIONS: fall with pain, swelling TECHNIQUE: 3 views of the knee were acquired. COMPARISON: None. FINDINGS: Bones: No fractures or dislocations. No suspicious bony lesions. Soft tissues: No joint effusion. No suspicious soft tissue calcifications. IMPRESSION: No trauma found. Mild medial compartment knee joint space narrowing consistent with mild degenerative osteoarthritis in that area. Dictated by: Denis Giordano M.D. on 12/28/2022 at 14:40 Approved by: Denis Giordano M.D. on 12/28/2022 at 14:40
[2022-12-28 14:09] VITALS: BP 113/62; PULSE 107; RESP 20; TEMP 37.2; O2SAT 97; BMI 34.4
[2022-12-28 14:23] VITALS: BP 104/57; PULSE 105; O2SAT 96
--- NOTE | 2022-12-28 15:01 | ED_ITS ---
HPI - Extremity Injury (Lower) General Chief Complaint: Extremity Injury, Lower Stated Complaint: L Knee Pain s/p Fall Time Seen by Provider: 12/28/22 14:08 Source: family and EMS Mode of arrival: EMS History of Present Illness HPI Narrative: 47M nonsmoker with hx of autism and Dolly-Tabies syndrome presents by EMS for evaluation of left knee injury. He was at PT yesterday and while attempting to load into the transport van the patient lowered himself to the ground and hyperextended his left knee. He now has pain and tenderness with some swelling and is here for evaluation as the patient can not move his leg due to pain. Related Data Home Medications Medication Instructions Recorded Confirmed [id number] 1 tab PO DAILY 08/04/22 09/12/22 cetirizine 10 mg capsule (Zyrtec) 10 mg PO DAILY 08/04/22 09/12/22 cholecalciferol (vitamin D3) 50 50 mcg PO DAILY 08/04/22 09/12/22 mcg (2,000 unit) tablet (Vitamin D3) olopatadine 0.2 % eye drops 1 drp ophthalmic (eye) QID PRN 08/05/22 09/12/22 conjunctavitis Previous Rx's Medication Instructions Recorded acetaminophen 325 mg tablet 650 mg (2 x 325 mg) PO Q6H #120 08/06/22 tabs aspirin 81 mg tablet,delayed 81 mg PO BID #84 tabs 08/06/22 release ibuprofen 400 mg tablet 400 mg PO Q4H #120 tabs 08/06/22 docusate sodium 100 mg capsule 100 mg PO BID #30 caps 08/08/22 hydrocodone 5 mg-acetaminophen 325 1 tab PO Q4H PRN Pain, Moderate 08/08/22 mg tablet (4-6) #10 tabs levofloxacin 750 mg tablet 750 mg PO DAILY #5 tabs 08/08/22 ondansetron 4 mg disintegrating 4 mg PO Q4HR PRN Nausea #20 tabs 08/08/22 tablet pantoprazole 40 mg tablet,delayed 40 mg PO DAILY #30 tabs 08/08/22 release (Protonix) polyethylene glycol 3350 17 gram 17 gm PO DAILY PRN Constipation 08/08/22 oral powder packet #20 ea sennosides 8.6 mg tablet (senna) 17.2 mg (2 x 8.6 mg) PO BID #20 08/08/22 tabs Allergies Allergy/AdvReac Type Severity Reaction Status Date / Time No Known Drug Allergies Allergy Verified 09/12/22 16:16 Review of Systems Review of Systems Narrative: GENERAL: Denies chills, fatigue, malaise, fever, sweats. HEENT: Denies sinus pain, ear pain, sore throat, difficulty swallowing, dizzin ess. RESPIRATORY: Denies dyspnea, cough, wheezing, hemoptysis, sputum. CARDIOVASCULAR: Denies chest pain, palpitations, orthopnea, edema, GASTROINTESTINAL: Denies nausea, vomiting, abdominal pain, diarrhea, constipation, melena. : Denies dysuria, frequency, incontinence, hematuria, urinary retention. MUSCULOSKELETAL: See HPI SKIN: Denies rash, skin lesions, or other NEUROLOGIC: Denies weakness, headache, numbness, change in speech, confusion, seizures, incoordination. PSYCHIATRIC: No concerning psychosocial issues. 12 point review of systems is negative except for those stated above Patient History Medical History Autism Hardik-Taybi syndrome Social History household members: family Smoking Status: Never smoker alcohol intake: never Smoking Status: Never smoker Substance Use Type: does not use Exam Narrative Exam Narrative: GENERAL: [47] year old patient appears stated age. Well-developed patient, in mild distress. HEAD: Atraumatic. Normocephalic. EYES: Pupils equal round and reactive. Extraocular motions intact. No scleral icterus. No injection or drainage. ENT: Nose without bleeding, purulent drainage. Throat without erythema, tonsillar hypertrophy or exudate. Airway patent. NECK: Trachea midline. Non tender CARDIOVASCULAR: Regular rate and rhythm without murmurs, gallops, or rubs. RESPIRATORY: Clear to auscultation. Breath sounds equal bilaterally. No wheezes, rales, or rhonchi. GASTROINTESTINAL: Abdomen soft, non-tender, nondistended. EXTREMITIES: Tenderness to palpation along lateral joint line of left knee with minimal effusion, no obvious ligamentous laxity, no gross deformity, closed, isolated and neurovascularly intact BACK: Nontender without deformity or crepitance. No flank tenderness. NEURO: Cranial nerves 2-12 grossly intact SKIN: No rash or erythema of visible areas Initial Vital Signs Initial Vital Signs: Vital Signs Temperature 99 F 12/28/22 14:09 Pulse Rate 107 H 12/28/22 14:09 Respiratory Rate 20 12/28/22 14:09 Blood Pressure 113/62 12/28/22 14:09 Pulse Oximetry 97 12/28/22 14:09 Oxygen Delivery Method Room Air 12/28/22 14:09 Procedures Orthopedic Splinting/Casting Injury #1: Side: left Lower Extremity Injury Location: knee Lower Extremity Immobilizer: knee immobilizer Post splinting neuro exam: intact Post splinting vascular exam: intact Placed by: Nursing Course Orders Ordered: ED Orders 12/28/22 14:08 XR knee LT 3V Stat 12/28/22 15:08 CT LE LT wo con Stat Vital Signs Vital signs: Vital Signs - 8 hr 12/28/22 14:09 12/28/22 14:23 12/28/22 16:07 Temperature 99 F Pulse Rate 107 H 105 H 93 H Respiratory Rate 20 20 Blood Pressure 113/62 104/57 L 111/58 L Pulse Oximetry 97 96 100 Oxygen Delivery Method Room Air Room Air 12/28/22 16:30 Temperature Pulse Rate 99 H Respiratory Rate Blood Pressure 103/57 L Pulse Oximetry 96 Oxygen Delivery Method Room Air MDM - Extremity Injury (Lower) MDM Narrative Medical decision making narrative: [47] year old patient presents with left knee injury Multiple etiologies for patient's symptoms considered including, but not limited to: [Fracture versus dislocation versus contusion versus sprain] Prior Charts reviewed in our EMR Primary Historian: patient Imaging reviewed: X-ray and CT absent of evidence of dislocation or fracture Patient's symptoms improved over duration of stay with above-stated therapies. Findings and discharge diagnosis discussed with patient/family followed by verbalization of understanding Return precautions discussed with patient/family whom verbalize understanding of diagnosis and plan Discharge Plan Departure Patient Disposition: Home Clinical Impression: Left knee sprain Instructions: DI for Knee Sprain Activity Restrictions/Additional Instructions: *You have been diagnosed with [left knee sprain] *What to do: *Please continue to take your regular medications as directed. [ ] New medication prescriptions sent to your pharmacy: [ ] [ ] New medication written as a paper prescription [ ] No new medications given *Please follow up with your primary care provider in 2-3 days, call for an appointment. Let them know you were seen in the Emergency Department and that we ask that you be seen in follow up. We will electronically transmit a record of today's note if your PCP is in our system *If you do not have a primary care provider please contact the [facility] Resource line at [phone]. They will ask some questions about your medical history and help get you set up with a doctor in the community. *Return to Emergency Department if you should have any new, worsening or concerning symptoms, such as [fever greater than 101 F, shaking chills, worsening pain, persistent vomiting or other bothersome symptoms] Prescriptions: No Action cholecalciferol (vitamin D3) [Vitamin D3] 50 mcg (2,000 unit) Tablet 50 mcg PO DAILY Zyrtec 10 mg Capsule 10 mg PO DAILY [id number] 1 tab PO DAILY olopatadine 0.2 % Drops 1 drp OPHTHALMIC (EYE) QID PRN (Reason: conjunctavitis) Rx Instructions: 1 drop to each eye QID PRN conjuntativis acetaminophen 325 mg Tablet 650 mg PO Q6H Qty: 120 0RF aspirin 81 mg Tablet,Delayed Release (Dr/Ec) 81 mg PO BID Qty: 84 0RF ibuprofen 400 mg Tablet 400 mg PO Q4H Qty: 120 0RF docusate sodium 100 mg Capsule 100 mg PO BID Qty: 30 0RF hydrocodone-acetaminophen 5-325 mg Tablet 1 tab PO Q4H PRN (Reason: Pain, Moderate (4-6)) Qty: 10 0RF ondansetron 4 mg Tablet,Disintegrating 4 mg PO Q4HR PRN (Reason: Nausea) Qty: 20 0RF polyethylene glycol 3350 17 gram Powder In Packet 17 gm PO DAILY PRN (Reason: Constipation) Qty: 20 0RF sennosides [senna] 8.6 mg Tablet 17.2 mg PO BID Qty: 20 0RF levofloxacin 750 mg tablet 750 mg PO DAILY Qty: 5 0RF pantoprazole [Protonix] 40 mg tablet,delayed release (DR/EC) 40 mg PO DAILY Qty: 30 0RF Referrals: Thalia Torres PA-C [Primary Care Provider] - Stand Alone Forms: Patient Portal/API
--- NOTE | 2022-12-28 15:08 | DI.CT.S_ITS ---
PROCEDURE: CT LE LT W CON INDICATIONS: severe knee pain after fall, no obvious fx on xray TECHNIQUE: After the administration of intravenous contrast, 3 mm axial sections acquired of the left knee, with coronal and sagittal reformats. COMPARISON: [facility], CR, XR KNEE LT 3V, 12/28/2022, 14:05. FINDINGS: Image quality: Excellent. Bones: -no acute fracture or dislocation. -corticated ossific density posterior to the lateral femoral condyle compatible with an accessory os fabella, normal variant. -mild lateral subluxation of the patella (), not seen on same day radiograph. -medial, lateral and patellofemoral compartment joint spaces are maintained with no significant osteophytosis or joint space narrowing. -no suspicious osseous lesions. Soft tissues: Small suprapatellar hemarthrosis. Mild prepatellar soft tissue swelling. No radiopaque foreign body. IMPRESSION: 1. No acute osseous abnormality. 2. Mild lateral subluxation of the patella, not seen on same day radiograph. 3. Small suprapatellar hemarthrosis. If pain persists, consider MRI to evaluate for internal derangement. Dictated by: Stuart Zuñiga M.D. on 12/28/2022 at 15:51 Approved by: Stuart Zuñiga M.D. on 12/28/2022 at 15:58
[2022-12-28 16:07] VITALS: BP 111/58; PULSE 93; RESP 20; O2SAT 100
[2022-12-28 16:30] VITALS: BP 103/57; PULSE 99; O2SAT 96
--- NOTE | 2022-12-28 16:49 | PC.NURSE ---
Knee immobilizer placed on right leg. Pt tolerated well. Pericare provided. Clean brief and new linens.
== END 2022-12-28 17:24 | disposition home or self-care (01) ==
PROVIDERS: Emergency Provider Emergency Medicine; Family Provider Physician Assistant; PCP Physician Assistant
DX: S83.92XA Sprain of unspecified site of left knee, initial encounter (principal); X58.XXXA Exposure to other specified factors, initial encounter
CPT/HCPCS: 73562; 73700; 99284

== ENCOUNTER 2023-01-03 16:08 | Emergency (ER) | payer MEDICARE, MEDICAID, SELFPAY ==
[2022-09-12 18:49] VITALS: BMI 34.7
[2023-01-03] VITALS (29 sets, daily range): BP systolic 83–115; BP diastolic 45–60; PULSE 101–155; RESP 10–51; TEMP 36.3–40.1; O2SAT 90–99; BMI 32.4
--- NOTE | 2023-01-03 16:36 | ED_ITS ---
HPI - Fever <Geoff Montoya MD - Last Filed: 01/21/23 07:35> General Chief Complaint: Altered Mental Status Stated Complaint: nausea, diarrhea, vomiting, fever Time Seen by Provider: 01/03/23 16:21 Source: family Mode of arrival: Family Vehicle History of Present Illness HPI Narrative: Patient brought here by mother from home for complaints of fever and vomiting. Patient had surgery on his left elbow at the beginning of summer of this year as well as left hip. He has been doing well with that. Had hip surgery done here by Dr. Gordon. He had elbow surgery done by [facility]. Yesterday had a headache. Mother gave him Tylenol yesterday. This morning he has been sleeping most of the day. Had episode of vomiting. He denies any abdominal pain. No cough cold or congestion. No urinary changes. He states his elbow and hip are nonpainful. Nonpainful on palpation of each of the joints and able to move them passively without any pain. Related Data Home Medications Medication Instructions Recorded Confirmed [id number] 1 tab PO DAILY 08/04/22 09/12/22 cetirizine 10 mg capsule (Zyrtec) 10 mg PO DAILY 08/04/22 09/12/22 cholecalciferol (vitamin D3) 50 50 mcg PO DAILY 08/04/22 09/12/22 mcg (2,000 unit) tablet (Vitamin D3) olopatadine 0.2 % eye drops 1 drp ophthalmic (eye) QID PRN 08/05/22 09/12/22 conjunctavitis Previous Rx's Medication Instructions Recorded acetaminophen 325 mg tablet 650 mg (2 x 325 mg) PO Q6H #120 08/06/22 tabs aspirin 81 mg tablet,delayed 81 mg PO BID #84 tabs 08/06/22 release ibuprofen 400 mg tablet 400 mg PO Q4H #120 tabs 08/06/22 docusate sodium 100 mg capsule 100 mg PO BID #30 caps 08/08/22 hydrocodone 5 mg-acetaminophen 325 1 tab PO Q4H PRN Pain, Moderate 08/08/22 mg tablet (4-6) #10 tabs levofloxacin 750 mg tablet 750 mg PO DAILY #5 tabs 08/08/22 ondansetron 4 mg disintegrating 4 mg PO Q4HR PRN Nausea #20 tabs 08/08/22 tablet pantoprazole 40 mg tablet,delayed 40 mg PO DAILY #30 tabs 08/08/22 release (Protonix) polyethylene glycol 3350 17 gram 17 gm PO DAILY PRN Constipation 08/08/22 oral powder packet #20 ea sennosides 8.6 mg tablet (senna) 17.2 mg (2 x 8.6 mg) PO BID #20 08/08/22 tabs Allergies Allergy/AdvReac Type Severity Reaction Status Date / Time No Known Drug Allergies Allergy Verified 09/12/22 16:16 Review of Systems <Geoff Montoya MD - Last Filed: 01/21/23 07:35> Review of Systems Narrative: GENERAL: Pause chills, fatigue, malaise, fever, sweats. HEENT: negative sinus pain, ear pain, sore throat RESPIRATORY: negative dyspnea, cough CARDIOVASCULAR: negative chest pain, palpitations GASTROINTESTINAL: Positive nausea, vomiting, negative abdominal pain : negative dysuria, frequency, hematuria MUSCULOSKELETAL: negative muscle or bony pain SKIN: negative rash, skin lesions NEUROLOGIC: negative weakness, numbness ROS Unobtainable: All systems reviewed & are unremarkable except as noted in HPI and below Patient History <Geoff Montoya MD - Last Filed: 01/21/23 07:35> Medical History Autism Hardik-Taybi syndrome Social History household members: family Smoking Status: Never smoker alcohol intake: never Smoking Status: Never smoker Substance Use Type: does not use Exam <Geoff Montoya MD - Last Filed: 01/21/23 07:35> Narrative Exam Narrative: GENERAL: in no distress, not toxic not dyspneic HEAD: Normocephalic. EYES: Pupils equal round ENT: Mucous membranes moist. NECK: Trachea midline. CARDIOVASCULAR: Tachycardia with Regular rate and rhythm RESPIRATORY: Clear to auscultation. Breath sounds equal bilaterally. No wheezes, rales, or rhonchi. No respiratory distress. Speaking with ease. GASTROINTESTINAL: Abdomen soft, non-tender, abdomen is soft flat nontender no peritoneal signs. EXTREMITIES: Dressing removed off of the left elbow. There are surgical wounds are clean and dry. Nontender on palpation. Patient able to move his arm without pain in the left elbow. Left hip is nontender. Able to passively flex and extend the left hip without any discomfort. BACK: No flank tenderness. NEURO: AOx4. Clear speech SKIN: Warm and dry PSYCH: Not anxious, is cooperative Initial Vital Signs Initial Vital Signs: Vital Signs Blood Pressure 96/51 L 01/03/23 16:18 <aDrrion Page, DO - Last Filed: 01/03/23 22:04> Initial Vital Signs Initial Vital Signs: Vital Signs Blood Pressure 96/51 L 01/03/23 16:18 <Nubia Rodriguez, DO - Last Filed: 01/06/23 17:39> Initial Vital Signs Initial Vital Signs: Vital Signs Blood Pressure 96/51 L 01/03/23 16:18 Course <Geoff Montoya MD - Last Filed: 01/21/23 07:35> Orders Ordered: Discontinued Medications Sodium Chloride (Normal Saline 0.9%) 1,000 mls @ 1,000 mls/hr IV BOLUS ONE Stop: 01/03/23 17:31 Last Infusion: 01/03/23 17:42 Dose: Infused Documented By: Admin: 01/03/23 16:43 Dose: 1,000 mls/hr Documented By: RB Acetaminophen (Ofirmev) 1,000 mg in 100 mls @ 400 mls/hr IV NOW ONE Stop: 01/03/23 16:47 Last Infusion: 01/03/23 17:00 Dose: Infused Documented By: Admin: 01/03/23 16:44 Dose: 400 mls/hr Documented By: RB Piperacillin Sod/Tazobactam (Sod 4.5 gm/ Sodium Chloride) 100 mls @ 200 mls/hr IV NOW ONE Stop: 01/03/23 16:40 Last Infusion: 01/03/23 18:45 Dose: Infused Documented By: Admin: 01/03/23 18:14 Dose: 200 mls/hr Documented By: CHRISTINE Lactated Ringer's (Lactated Ringers) 1,000 mls @ 1,000 mls/hr IV BOLUS ONE Stop: 01/03/23 17:44 Last Infusion: 01/03/23 18:53 Dose: Infused Documented By: Admin: 01/03/23 17:42 Dose: 1,000 mls/hr Documented By: DKB Vancomycin HCl (Vancomycin) 1,000 mg in 200 mls @ 200 mls/hr IV NOW ONE Stop: 01/03/23 19:10 Last Infusion: 01/03/23 20:08 Dose: Infused Documented By: Admin: 01/03/23 18:55 Dose: 200 mls/hr Documented By: CHRISTINE Lactated Ringer's (Lactated Ringers) 1,000 mls @ 1,000 mls/hr IV BOLUS ONE Stop: 01/03/23 20:03 Last Infusion: 01/03/23 20:10 Dose: Infused Documented By: Admin: 01/03/23 19:09 Dose: 1,000 mls/hr Documented By: CHRISTINE Lactated Ringer's (Lactated Ringers) 1,000 mls @ 200 mls/hr IV CONT LELAND Lidocaine HCl (Lidocaine 2% (Glydo) 6 Ml Gel) 6 ml TOP NOW ONE Stop: 01/03/23 16:38 Last Admin: 01/03/23 16:42 Dose: 6 ml Documented By: HARRY Ondansetron HCl (Ondansetron 4 Mg/2 Ml Inj) 4 mg IV NOW PRN PRN Reason: Nausea And Vomiting Last Admin: 01/03/23 16:42 Dose: 4 mg Documented By: HARRY Ondansetron HCl (Ondansetron 4 Mg Odt) 4 mg SL NOW PRN PRN Reason: Nausea And Vomiting Vital Signs Vital signs: Vital Signs - 8 hr 01/03/23 16:18 01/03/23 16:19 01/03/23 16:22 Temperature 104.2 F H Pulse Rate 153 H 155 H Respiratory Rate 47 H 28 H Blood Pressure 96/51 L 96/51 L Pulse Oximetry 92 92 Oxygen Delivery Method Room Air Oxygen Flow Rate 01/03/23 16:30 01/03/23 16:48 01/03/23 16:48 Temperature Pulse Rate 154 H 144 H Respiratory Rate 51 H 27 H Blood Pressure 102/58 L Pulse Oximetry 95 91 Oxygen Delivery Method Oxygen Flow Rate 01/03/23 17:00 01/03/23 17:11 01/03/23 17:11 Temperature Pulse Rate 149 H 144 H Respiratory Rate 10 L 23 Blood Pressure 114/56 L Pulse Oximetry 96 96 Oxygen Delivery Method Oxygen Flow Rate 01/03/23 17:30 01/03/23 17:30 01/03/23 17:52 Temperature Pulse Rate 135 H 128 H Respiratory Rate 40 H 33 H Blood Pressure 97/58 L Pulse Oximetry 95 94 Oxygen Delivery Method Oxygen Flow Rate 01/03/23 17:52 01/03/23 18:00 01/03/23 18:00 Temperature Pulse Rate 126 H Respiratory Rate 35 H Blood Pressure 99/57 L 99/54 L Pulse Oximetry 95 Oxygen Delivery Method Oxygen Flow Rate 01/03/23 18:30 01/03/23 18:30 01/03/23 18:51 Temperature Pulse Rate 121 H 120 H Respiratory Rate 29 H 26 H Blood Pressure 92/51 L Pulse Oximetry 94 95 Oxygen Delivery Method Oxygen Flow Rate 01/03/23 18:51 01/03/23 19:00 01/03/23 19:00 Temperature Pulse Rate 118 H Respiratory Rate 28 H Blood Pressure 87/46 L 87/45 L Pulse Oximetry 94 Oxygen Delivery Method Oxygen Flow Rate 01/03/23 19:01 01/03/23 19:01 01/03/23 19:30 Temperature Pulse Rate 117 H 113 H Respiratory Rate 29 H 27 H Blood Pressure 85/46 L Pulse Oximetry 94 95 Oxygen Delivery Method Oxygen Flow Rate 01/03/23 19:30 01/03/23 19:31 01/03/23 19:31 Temperature 97.7 F Pulse Rate Respiratory Rate Blood Pressure 83/48 L 87/52 L Pulse Oximetry Oxygen Delivery Method Oxygen Flow Rate 01/03/23 19:31 01/03/23 19:46 01/03/23 19:46 Temperature Pulse Rate 110 H 109 H Respiratory Rate 22 22 Blood Pressure 95/60 Pulse Oximetry 95 94 Oxygen Delivery Method Oxygen Flow Rate 01/03/23 20:00 01/03/23 20:00 01/03/23 20:15 Temperature Pulse Rate 107 H 112 H Respiratory Rate 31 H 31 H Blood Pressure 95/52 L Pulse Oximetry 95 90 L Oxygen Delivery Method Oxygen Flow Rate 3 01/03/23 20:15 01/03/23 20:30 01/03/23 20:30 Temperature Pulse Rate 111 H Respiratory Rate 27 H Blood Pressure 98/57 L 105/51 L Pulse Oximetry 91 Oxygen Delivery Method Oxygen Flow Rate 3 01/03/23 20:45 01/03/23 20:45 01/03/23 21:00 Temperature Pulse Rate 106 H 107 H Respiratory Rate 28 H 24 Blood Pressure 100/54 L Pulse Oximetry 97 96 Oxygen Delivery Method Oxygen Flow Rate 01/03/23 21:00 01/03/23 21:00 01/03/23 21:14 Temperature Pulse Rate 109 H Respiratory Rate 27 H Blood Pressure 109/55 L 109/55 L Pulse Oximetry 98 Oxygen Delivery Method Oxygen Flow Rate 01/03/23 21:14 01/03/23 21:15 01/03/23 21:15 Temperature Pulse Rate 107 H Respiratory Rate 28 H Blood Pressure 115/60 100/55 L Pulse Oximetry 98 Oxygen Delivery Method Oxygen Flow Rate 01/03/23 21:30 01/03/23 21:30 01/03/23 21:45 Temperature Pulse Rate 106 H 105 H Respiratory Rate 29 H 29 H Blood Pressure 93/48 L Pulse Oximetry 98 98 Oxygen Delivery Method Oxygen Flow Rate 3 3 01/03/23 21:45 Temperature Pulse Rate Respiratory Rate Blood Pressure 97/53 L Pulse Oximetry Oxygen Delivery Method Oxygen Flow Rate <Darrion Page DO - Last Filed: 01/03/23 22:04> Orders Ordered: Discontinued Medications Sodium Chloride (Normal Saline 0.9%) 1,000 mls @ 1,000 mls/hr IV BOLUS ONE Stop: 01/03/23 17:31 Last Infusion: 01/03/23 17:42 Dose: Infused Documented By: Admin: 01/03/23 16:43 Dose: 1,000 mls/hr Documented By: HARRY Acetaminophen (Ofirmev) 1,000 mg in 100 mls @ 400 mls/hr IV NOW ONE Stop: 01/03/23 16:47 Last Infusion: 01/03/23 17:00 Dose: Infused Documented By: Admin: 01/03/23 16:44 Dose: 400 mls/hr Documented By: RB Piperacillin Sod/Tazobactam (Sod 4.5 gm/ Sodium Chloride) 100 mls @ 200 mls/hr IV NOW ONE Stop: 01/03/23 16:40 Last Infusion: 01/03/23 18:45 Dose: Infused Documented By: Admin: 01/03/23 18:14 Dose: 200 mls/hr Documented By: CHRISTINE Lactated Ringer's (Lactated Ringers) 1,000 mls @ 1,000 mls/hr IV BOLUS ONE Stop: 01/03/23 17:44 Last Infusion: 01/03/23 18:53 Dose: Infused Documented By: Admin: 01/03/23 17:42 Dose: 1,000 mls/hr Documented By: CHRISTINE Vancomycin HCl (Vancomycin) 1,000 mg in 200 mls @ 200 mls/hr IV NOW ONE Stop: 01/03/23 19:10 Last Infusion: 01/03/23 20:08 Dose: Infused Documented By: Admin: 01/03/23 18:55 Dose: 200 mls/hr Documented By: CHRISTINE Lactated Ringer's (Lactated Ringers) 1,000 mls @ 1,000 mls/hr IV BOLUS ONE Stop: 01/03/23 20:03 Last Infusion: 01/03/23 20:10 Dose: Infused Documented By: Admin: 01/03/23 19:09 Dose: 1,000 mls/hr Documented By: CHRISTINE Lactated Ringer's (Lactated Ringers) 1,000 mls @ 200 mls/hr IV CONT LELAND Lidocaine HCl (Lidocaine 2% (Glydo) 6 Ml Gel) 6 ml TOP NOW ONE Stop: 01/03/23 16:38 Last Admin: 01/03/23 16:42 Dose: 6 ml Documented By: RB Ondansetron HCl (Ondansetron 4 Mg/2 Ml Inj) 4 mg IV NOW PRN PRN Reason: Nausea And Vomiting Last Admin: 01/03/23 16:42 Dose: 4 mg Documented By: RB Ondansetron HCl (Ondansetron 4 Mg Odt) 4 mg SL NOW PRN PRN Reason: Nausea And Vomiting Vital Signs Vital signs: Vital Signs - 8 hr 01/03/23 16:18 01/03/23 16:19 01/03/23 16:22 Temperature 104.2 F H Pulse Rate 153 H 155 H Respiratory Rate 47 H 28 H Blood Pressure 96/51 L 96/51 L Pulse Oximetry 92 92 Oxygen Delivery Method Room Air Oxygen Flow Rate 01/03/23 16:30 01/03/23 16:48 01/03/23 16:48 Temperature Pulse Rate 154 H 144 H Respiratory Rate 51 H 27 H Blood Pressure 102/58 L Pulse Oximetry 95 91 Oxygen Delivery Method Oxygen Flow Rate 01/03/23 17:00 01/03/23 17:11 01/03/23 17:11 Temperature Pulse Rate 149 H 144 H Respiratory Rate 10 L 23 Blood Pressure 114/56 L Pulse Oximetry 96 96 Oxygen Delivery Method Oxygen Flow Rate 01/03/23 17:30 01/03/23 17:30 01/03/23 17:52 Temperature Pulse Rate 135 H 128 H Respiratory Rate 40 H 33 H Blood Pressure 97/58 L Pulse Oximetry 95 94 Oxygen Delivery Method Oxygen Flow Rate 01/03/23 17:52 01/03/23 18:00 01/03/23 18:00 Temperature Pulse Rate 126 H Respiratory Rate 35 H Blood Pressure 99/57 L 99/54 L Pulse Oximetry 95 Oxygen Delivery Method Oxygen Flow Rate 01/03/23 18:30 01/03/23 18:30 01/03/23 18:51 Temperature Pulse Rate 121 H 120 H Respiratory Rate 29 H 26 H Blood Pressure 92/51 L Pulse Oximetry 94 95 Oxygen Delivery Method Oxygen Flow Rate 01/03/23 18:51 01/03/23 19:00 01/03/23 19:00 Temperature Pulse Rate 118 H Respiratory Rate 28 H Blood Pressure 87/46 L 87/45 L Pulse Oximetry 94 Oxygen Delivery Method Oxygen Flow Rate 01/03/23 19:01 01/03/23 19:01 01/03/23 19:30 Temperature Pulse Rate 117 H 113 H Respiratory Rate 29 H 27 H Blood Pressure 85/46 L Pulse Oximetry 94 95 Oxygen Delivery Method Oxygen Flow Rate 01/03/23 19:30 01/03/23 19:31 01/03/23 19:31 Temperature 97.7 F Pulse Rate Respiratory Rate Blood Pressure 83/48 L 87/52 L Pulse Oximetry Oxygen Delivery Method Oxygen Flow Rate 01/03/23 19:31 01/03/23 19:46 01/03/23 19:46 Temperature Pulse Rate 110 H 109 H Respiratory Rate 22 22 Blood Pressure 95/60 Pulse Oximetry 95 94 Oxygen Delivery Method Oxygen Flow Rate 01/03/23 20:00 01/03/23 20:00 01/03/23 20:15 Temperature Pulse Rate 107 H 112 H Respiratory Rate 31 H 31 H Blood Pressure 95/52 L Pulse Oximetry 95 90 L Oxygen Delivery Method Oxygen Flow Rate 3 01/03/23 20:15 01/03/23 20:30 01/03/23 20:30 Temperature Pulse Rate 111 H Respiratory Rate 27 H Blood Pressure 98/57 L 105/51 L Pulse Oximetry 91 Oxygen Delivery Method Oxygen Flow Rate 3 01/03/23 20:45 01/03/23 20:45 01/03/23 21:00 Temperature Pulse Rate 106 H 107 H Respiratory Rate 28 H 24 Blood Pressure 100/54 L Pulse Oximetry 97 96 Oxygen Delivery Method Oxygen Flow Rate 01/03/23 21:00 01/03/23 21:00 01/03/23 21:14 Temperature Pulse Rate 109 H Respiratory Rate 27 H Blood Pressure 109/55 L 109/55 L Pulse Oximetry 98 Oxygen Delivery Method Oxygen Flow Rate 01/03/23 21:14 01/03/23 21:15 01/03/23 21:15 Temperature Pulse Rate 107 H Respiratory Rate 28 H Blood Pressure 115/60 100/55 L Pulse Oximetry 98 Oxygen Delivery Method Oxygen Flow Rate 01/03/23 21:30 01/03/23 21:30 01/03/23 21:45 Temperature Pulse Rate 106 H 105 H Respiratory Rate 29 H 29 H Blood Pressure 93/48 L Pulse Oximetry 98 98 Oxygen Delivery Method Oxygen Flow Rate 3 3 01/03/23 21:45 Temperature Pulse Rate Respiratory Rate Blood Pressure 97/53 L Pulse Oximetry Oxygen Delivery Method Oxygen Flow Rate <Nubia Rodriguez, - Last Filed: 01/06/23 17:39> Orders Ordered: Discontinued Medications Sodium Chloride (Normal Saline 0.9%) 1,000 mls @ 1,000 mls/hr IV BOLUS ONE Stop: 01/03/23 17:31 Last Infusion: 01/03/23 17:42 Dose: Infused Documented By: Admin: 01/03/23 16:43 Dose: 1,000 mls/hr Documented By: RB Acetaminophen (Ofirmev) 1,000 mg in 100 mls @ 400 mls/hr IV NOW ONE Stop: 01/03/23 16:47 Last Infusion: 01/03/23 17:00 Dose: Infused Documented By: Admin: 01/03/23 16:44 Dose: 400 mls/hr Documented By: RB Piperacillin Sod/Tazobactam (Sod 4.5 gm/ Sodium Chloride) 100 mls @ 200 mls/hr IV NOW ONE Stop: 01/03/23 16:40 Last Infusion: 01/03/23 18:45 Dose: Infused Documented By: Admin: 01/03/23 18:14 Dose: 200 mls/hr Documented By: CHRISTINE Lactated Ringer's (Lactated Ringers) 1,000 mls @ 1,000 mls/hr IV BOLUS ONE Stop: 01/03/23 17:44 Last Infusion: 01/03/23 18:53 Dose: Infused Documented By: Admin: 01/03/23 17:42 Dose: 1,000 mls/hr Documented By: CHRISTINE Vancomycin HCl (Vancomycin) 1,000 mg in 200 mls @ 200 mls/hr IV NOW ONE Stop: 01/03/23 19:10 Last Infusion: 01/03/23 20:08 Dose: Infused Documented By: Admin: 01/03/23 18:55 Dose: 200 mls/hr Documented By: CHRISTINE Lactated Ringer's (Lactated Ringers) 1,000 mls @ 1,000 mls/hr IV BOLUS ONE Stop: 01/03/23 20:03 Last Infusion: 01/03/23 20:10 Dose: Infused Documented By: Admin: 01/03/23 19:09 Dose: 1,000 mls/hr Documented By: CHRISTINE Lactated Ringer's (Lactated Ringers) 1,000 mls @ 200 mls/hr IV CONT LELAND Lidocaine HCl (Lidocaine 2% (Glydo) 6 Ml Gel) 6 ml TOP NOW ONE Stop: 01/03/23 16:38 Last Admin: 01/03/23 16:42 Dose: 6 ml Documented By: HARRY Ondansetron HCl (Ondansetron 4 Mg/2 Ml Inj) 4 mg IV NOW PRN PRN Reason: Nausea And Vomiting Last Admin: 01/03/23 16:42 Dose: 4 mg Documented By: HARRY Ondansetron HCl (Ondansetron 4 Mg Odt) 4 mg SL NOW PRN PRN Reason: Nausea And Vomiting Vital Signs Vital signs: Vital Signs - 8 hr 01/03/23 16:18 01/03/23 16:19 01/03/23 16:22 Temperature 104.2 F H Pulse Rate 153 H 155 H Respiratory Rate 47 H 28 H Blood Pressure 96/51 L 96/51 L Pulse Oximetry 92 92 Oxygen Delivery Method Room Air Oxygen Flow Rate 01/03/23 16:30 01/03/23 16:48 01/03/23 16:48 Temperature Pulse Rate 154 H 144 H Respiratory Rate 51 H 27 H Blood Pressure 102/58 L Pulse Oximetry 95 91 Oxygen Delivery Method Oxygen Flow Rate 01/03/23 17:00 01/03/23 17:11 01/03/23 17:11 Temperature Pulse Rate 149 H 144 H Respiratory Rate 10 L 23 Blood Pressure 114/56 L Pulse Oximetry 96 96 Oxygen Delivery Method Oxygen Flow Rate 01/03/23 17:30 01/03/23 17:30 01/03/23 17:52 Temperature Pulse Rate 135 H 128 H Respiratory Rate 40 H 33 H Blood Pressure 97/58 L Pulse Oximetry 95 94 Oxygen Delivery Method Oxygen Flow Rate 01/03/23 17:52 01/03/23 18:00 01/03/23 18:00 Temperature Pulse Rate 126 H Respiratory Rate 35 H Blood Pressure 99/57 L 99/54 L Pulse Oximetry 95 Oxygen Delivery Method Oxygen Flow Rate 01/03/23 18:30 01/03/23 18:30 01/03/23 18:51 Temperature Pulse Rate 121 H 120 H Respiratory Rate 29 H 26 H Blood Pressure 92/51 L Pulse Oximetry 94 95 Oxygen Delivery Method Oxygen Flow Rate 01/03/23 18:51 01/03/23 19:00 01/03/23 19:00 Temperature Pulse Rate 118 H Respiratory Rate 28 H Blood Pressure 87/46 L 87/45 L Pulse Oximetry 94 Oxygen Delivery Method Oxygen Flow Rate 01/03/23 19:01 01/03/23 19:01 01/03/23 19:30 Temperature Pulse Rate 117 H 113 H Respiratory Rate 29 H 27 H Blood Pressure 85/46 L Pulse Oximetry 94 95 Oxygen Delivery Method Oxygen Flow Rate 01/03/23 19:30 01/03/23 19:31 01/03/23 19:31 Temperature 97.7 F Pulse Rate Respiratory Rate Blood Pressure 83/48 L 87/52 L Pulse Oximetry Oxygen Delivery Method Oxygen Flow Rate 01/03/23 19:31 01/03/23 19:46 01/03/23 19:46 Temperature Pulse Rate 110 H 109 H Respiratory Rate 22 22 Blood Pressure 95/60 Pulse Oximetry 95 94 Oxygen Delivery Method Oxygen Flow Rate 01/03/23 20:00 01/03/23 20:00 01/03/23 20:15 Temperature Pulse Rate 107 H 112 H Respiratory Rate 31 H 31 H Blood Pressure 95/52 L Pulse Oximetry 95 90 L Oxygen Delivery Method Oxygen Flow Rate 3 01/03/23 20:15 11/02/23 20:30 01/03/23 20:30 Temperature Pulse Rate 111 H Respiratory Rate 27 H Blood Pressure 98/57 L 105/51 L Pulse Oximetry 91 Oxygen Delivery Method Oxygen Flow Rate 3 01/03/23 20:45 01/03/23 20:45 01/03/23 21:00 Temperature Pulse Rate 106 H 107 H Respiratory Rate 28 H 24 Blood Pressure 100/54 L Pulse Oximetry 97 96 Oxygen Delivery Method Oxygen Flow Rate 01/03/23 21:00 01/03/23 21:00 01/03/23 21:14 Temperature Pulse Rate 109 H Respiratory Rate 27 H Blood Pressure 109/55 L 109/55 L Pulse Oximetry 98 Oxygen Delivery Method Oxygen Flow Rate 01/03/23 21:14 01/03/23 21:15 01/03/23 21:15 Temperature Pulse Rate 107 H Respiratory Rate 28 H Blood Pressure 115/60 100/55 L Pulse Oximetry 98 Oxygen Delivery Method Oxygen Flow Rate 01/03/23 21:30 01/03/23 21:30 01/03/23 21:45 Temperature Pulse Rate 106 H 105 H Respiratory Rate 29 H 29 H Blood Pressure 93/48 L Pulse Oximetry 98 98 Oxygen Delivery Method Oxygen Flow Rate 3 3 01/03/23 21:45 Temperature Pulse Rate Respiratory Rate Blood Pressure 97/53 L Pulse Oximetry Oxygen Delivery Method Oxygen Flow Rate MDM - Fever <Geoff Montoya MD - Last Filed: 01/21/23 07:35> Lab Data 01/03/23 19:05 01/03/23 16:41 Labs: Lab Results 01/03/23 01/03/23 01/03/23 Range/Units 10:41 16:41 17:10 WBC 53.3 H* (4.5-11.0) X10^3/uL RBC 5.32 (4.5-5.9) X10^6/uL Hgb 15.7 (13.5-17.5) g/dL Hct 46.0 (41-53) % MCV 86.4 (80-100) fL MCH 29.5 (26-34) PG MCHC 34.2 (30-36) % RDW 14.9 H (11.6-14.8) % Plt Count 215 (150-400) X10^3/uL Neut % (Auto) Not Reportable Lymph % (Auto) Not Reportable [place] % (Auto) Not Reportable Eos % (Auto) Not Reportable Baso % (Auto) Not Reportable Lymph # (Auto) Not Reportable [place] # (Auto) Not Reportable Baso # (Auto) Not Reportable Total Counted 100 Seg Neutrophils % 74.0 H (38-70) % Band Neutrophils % 12.0 H (3-7) % Lymphocytes % (Manual) 2.0 L (25-45) % Monocytes % (Manual) 9.0 (2-11) % Eosinophils % (Manual) 1.0 L (2-4) % Metamyelocytes % 2.0 H (-0) % Myelocytes % (-0) % Neutrophils # (Manual) 16770 H (8760-7900) /uL Toxic Granulation Toxic Vacuolation Platelet Estimate Adequate on smear RBC Morphology Normal morphology PT 17.2 H (10.1-12.7) SECONDS INR 1.5 H (0.9-1.3) APTT 32 (26-36) SECONDS Sodium 137 (137-145) mmol/L Potassium 3.4 (3.4-5.1) mmol/L Chloride 100 (98-107) mmol/L Carbon Dioxide 21 L (22-32) mmol/L BUN 40 H (9-20) mg/dL Creatinine 1.55 H (0.66-1.25) mg/dL Estimated GFR 56 L (>60) mL/min BUN/Creatinine Ratio 25.8 H (6-22) Glucose 137 H (70-100) mg/dL Lactate 2.6 H (0.7-2.1) mmol/L Calcium 10.6 H (8.4-10.2) mg/dL Total Bilirubin 0.9 (0.2-1.3) mg/dL AST 42 (17-59) IU/L ALT 33 (<50) IU/L Alkaline Phosphatase 149 H (38-126) U/L Total Protein 7.8 (6.3-8.2) g/dL Albumin 4.4 (3.5-5.0) g/dL Globulin 3.4 (1.7-4.1) g/dL Albumin/Globulin Ratio 1.3 (1.0-2.8) Lipase 33 (23-300) U/L Procalcitonin 183 H (<0.5) ng/mL Urine Color Urine Appearance Urine pH (4.5-8.0) Ur Specific [facility] (1.000-1.035) Urine Protein (Negative) Urine Glucose (UA) (Negative) g/dL Urine Ketones (NEGATIVE) Urine Occult Blood (Negative) Urine Nitrate (Negative) Urine Bilirubin (NEGATIVE) Ur Bilirubin Confirm (Negative) Urine Urobilinogen (0.2) E.U./dL Ur Leukocyte Esterase (NEGATIVE) Urine RBC (0-5/HPF) Urine WBC (0-5/HPF) Ur Squamous Epith Cells (0-5/HPF) Ur Transition Epith Cell (0-5/HPF) Urine Bacteria (None) Ur Culture Indicated? A.calcoaceticus-baumannii cmplx PCR Not detected (Not Detect) Chlamy pneumoniae PCR (Not Detect) Adenovirus (PCR) (Not Detect) Bacteroides fragilis Not detected (Not Detect) B.parapertussis DNA PCR (Not Detecte) Sophie albicans (PCR) Not detected (Not Detect) Sophie auris (PCR) Not detected (Not Detect) C. glabrata (PCR) Not detected (Not Detect) C. krusei (PCR) Not detected (Not Detect) C. parapsilosis (PCR) Not detected (Not Detect) C. tropicalis (PCR) Not detected (Not Detect) Coronavirus OC43 (PCR) (Not Detect) Coronavirus HKU1 (PCR) (Not Detect) Coronavirus 229E (PCR) (Not Detect) SARS-CoV-2 (PCR) (Not Detecte) Coronavirus NL63 (PCR) (Not Detect) C. neoform/gattii (PCR) Not detected (Not Detect) Enterobacterales (PCR) Detected (Not Detect) E. cloacae complex PCR Not detected (Not Detect) Enterococc faecalis PCR Not detected (Not Detect) Enterococc faecium PCR Not detected (Not Detect) E. coli (PCR) Not detected (Not Detect) H. influenzae (PCR) Not detected (Not Detect) Human Metapneumovir PCR (Not Detect) Influenza Type A (PCR) (Not Detect) Influenza Type B (PCR) (Not Detect) Klebsiella aerogenes (PCR) Not detected (Not Detect) Klebsiella oxytoca PCR Not detected (Not Detect) Klebsiella pneumoniae Not detected (Not Detect) List. monocytogenes PCR Not detected (Not Detect) M. pneumoniae (PCR) (Not Detect) N. meningitidis (PCR) Not detected (Not Detect) Parainfluenza 1 (PCR) (Not Detect) Parainfluenza 2 (PCR) (Not Detect) Parainfluenza 3 (PCR) (Not Detect) Parainfluenza 4 (PCR) (Not Detect) Proteus species (PCR) Detected (Not Detect) RSV (PCR) (Not Detect) Entero/Rhino (PCR) (Not Detect) Salmonella spp. (PCR) Not detected (Not Detect) Serratia marcescens PCR Not detected (Not Detect) Staphylococcus sp PCR Not detected (Not Detect) Staph aureus (PCR) Not detected (Not Detect) mecA/C & MREJ Resist Gene Not applicable (Not Detect) mecA/C-Methicil Resis Gene Not applicable (Not Detect) mcr-1 Colistin Res Gene PCR Not applicable (Not Detect) Staph epidermidis (PCR) Not detected (Not Detect) Staph lugdunensis PCR Not detected (Not Detect) S. maltophilia (PCR) Not detected (Not Detect) Streptococcus sp PCR Not detected (Not Detect) Group A Strep (PCR) Not detected (Not Detect) Strep agalactiae (PCR) Not detected (Not Detect) Strep pneumoniae (PCR) Not detected (Not Detect) P. aeruginosa (PCR) Not detected (Not Detect) Shad/B-Vanco Res Genes Not applicable (Not Detect) blaIMP Car res Gene PCR Not detected (Not Detect) KPC-Carbap Res Gene PCR Not detected (Not Detect) blaNDM Car Res Gene PCR Not detected (Not Detect) OXA-48 Carbapenem Resis Gene (PCR) Not detected (Not Detect) blaVIM Car Res Gene PCR Not detected (Not Detect) CTX-M Gene Resistance (PCR) Not detected (Not Detect) 01/03/23 01/03/23 01/03/23 Range/Units 17:20 19:05 19:10 WBC 45.7 H* (4.5-11.0) X10^3/uL RBC 4.22 L (4.5-5.9) X10^6/uL Hgb 12.4 L (13.5-17.5) g/dL Hct 37.2 L (41-53) % MCV 88.0 (80-100) fL MCH 29.4 (26-34) PG MCHC 33.4 (30-36) % RDW 14.9 H (11.6-14.8) % Plt Count 163 (150-400) X10^3/uL Neut % (Auto) Not Reportable Lymph % (Auto) Not Reportable [place] % (Auto) Not Reportable Eos % (Auto) Not Reportable Baso % (Auto) Not Reportable Lymph # (Auto) Not Reportable [place] # (Auto) Not Reportable Baso # (Auto) Not Reportable Total Counted 100 Seg Neutrophils % 73.0 H (38-70) % Band Neutrophils % 16.0 H (3-7) % Lymphocytes % (Manual) 2.0 L (25-45) % Monocytes % (Manual) 5.0 (2-11) % Eosinophils % (Manual) (2-4) % Metamyelocytes % 3.0 H (-0) % Myelocytes % 1.0 H (-0) % Neutrophils # (Manual) 45027 H (5462-9808) /uL Toxic Granulation Present H Toxic Vacuolation Present H Platelet Estimate Adequate on smear RBC Morphology Normal morphology PT (10.1-12.7) SECONDS INR (0.9-1.3) APTT (26-36) SECONDS Sodium (137-145) mmol/L Potassium (3.4-5.1) mmol/L Chloride (98-107) mmol/L Carbon Dioxide (22-32) mmol/L BUN (9-20) mg/dL Creatinine (0.66-1.25) mg/dL Estimated GFR (>60) mL/min BUN/Creatinine Ratio (6-22) Glucose (70-100) mg/dL Lactate 1.5 (0.7-2.1) mmol/L Calcium (8.4-10.2) mg/dL Total Bilirubin (0.2-1.3) mg/dL AST (17-59) IU/L ALT (<50) IU/L Alkaline Phosphatase (38-126) U/L Total Protein (6.3-8.2) g/dL Albumin (3.5-5.0) g/dL Globulin (1.7-4.1) g/dL Albumin/Globulin Ratio (1.0-2.8) Lipase (23-300) U/L Procalcitonin (<0.5) ng/mL Urine Color Yellow Urine Appearance Sl cloudy Urine pH 5.0 (4.5-8.0) Ur Specific [facility] <=1.005 (1.000-1.035) Urine Protein 1+ H (Negative) Urine Glucose (UA) Negative (Negative) g/dL Urine Ketones Trace H (NEGATIVE) Urine Occult Blood 2+ H (Negative) Urine Nitrate Negative (Negative) Urine Bilirubin 1+ H (NEGATIVE) Ur Bilirubin Confirm Negative (Negative) Urine Urobilinogen 1.0 (0.2) E.U./dL Ur Leukocyte Esterase 1+ H (NEGATIVE) Urine RBC 1-5/hpf (0-5/HPF) Urine WBC >100/hpf H (0-5/HPF) Ur Squamous Epith Cells 1-5 /hpf (0-5/HPF) Ur Transition Epith Cell 5-10/hpf H (0-5/HPF) Urine Bacteria Few (2-10) H (None) Ur Culture Indicated? Specimen cultured A.calcoaceticus-baumannii cmplx PCR (Not Detect) Chlamy pneumoniae PCR Not detected (Not Detect) Adenovirus (PCR) Not detected (Not Detect) Bacteroides fragilis (Not Detect) B.parapertussis DNA PCR Not detected (Not Detecte) Sophie albicans (PCR) (Not Detect) Sophie auris (PCR) (Not Detect) C. glabrata (PCR) (Not Detect) C. krusei (PCR) (Not Detect) C. parapsilosis (PCR) (Not Detect) C. tropicalis (PCR) (Not Detect) Coronavirus OC43 (PCR) Not detected (Not Detect) Coronavirus HKU1 (PCR) Not detected (Not Detect) Coronavirus 229E (PCR) Not detected (Not Detect) SARS-CoV-2 (PCR) Not detected (Not Detecte) Coronavirus NL63 (PCR) Not detected (Not Detect) C. neoform/gattii (PCR) (Not Detect) Enterobacterales (PCR) (Not Detect) E. cloacae complex PCR (Not Detect) Enterococc faecalis PCR (Not Detect) Enterococc faecium PCR (Not Detect) E. coli (PCR) (Not Detect) H. influenzae (PCR) (Not Detect) Human Metapneumovir PCR Not detected (Not Detect) Influenza Type A (PCR) Not detected (Not Detect) Influenza Type B (PCR) Not detected (Not Detect) Klebsiella aerogenes (PCR) (Not Detect) Klebsiella oxytoca PCR (Not Detect) Klebsiella pneumoniae (Not Detect) List. monocytogenes PCR (Not Detect) M. pneumoniae (PCR) Not detected (Not Detect) N. meningitidis (PCR) (Not Detect) Parainfluenza 1 (PCR) Not detected (Not Detect) Parainfluenza 2 (PCR) Not detected (Not Detect) Parainfluenza 3 (PCR) Not detected (Not Detect) Parainfluenza 4 (PCR) Not detected (Not Detect) Proteus species (PCR) (Not Detect) RSV (PCR) Not detected (Not Detect) Entero/Rhino (PCR) Not detected (Not Detect) Salmonella spp. (PCR) (Not Detect) Serratia marcescens PCR (Not Detect) Staphylococcus sp PCR (Not Detect) Staph aureus (PCR) (Not Detect) mecA/C & MREJ Resist Gene (Not Detect) mecA/C-Methicil Resis Gene (Not Detect) mcr-1 Colistin Res Gene PCR (Not Detect) Staph epidermidis (PCR) (Not Detect) Staph lugdunensis PCR (Not Detect) S. maltophilia (PCR) (Not Detect) Streptococcus sp PCR (Not Detect) Group A Strep (PCR) (Not Detect) Strep agalactiae (PCR) (Not Detect) Strep pneumoniae (PCR) (Not Detect) P. aeruginosa (PCR) (Not Detect) Shad/B-Vanco Res Genes (Not Detect) blaIMP Car res Gene PCR (Not Detect) KPC-Carbap Res Gene PCR (Not Detect) blaNDM Car Res Gene PCR (Not Detect) OXA-48 Carbapenem Resis Gene (PCR) (Not Detect) blaVIM Car Res Gene PCR (Not Detect) CTX-M Gene Resistance (PCR) (Not Detect) [facility] Narrative Medical decision making narrative: Patient brought here by mother from home for complaints of fever and vomiting. Patient had surgery on his left elbow at the beginning of summer of this year as well as left hip. He has been doing well with that. Had hip surgery done here by Dr. Gordon. He had elbow surgery done by [facility]. Yesterday had a headache. Mother gave him Tylenol yesterday. This morning he has been sleeping most of the day. Had episode of vomiting. He denies any abdominal pain. No cough cold or congestion. No urinary changes. He states his elbow and hip are nonpainful. Nonpainful on palpation of each of the joints and able to move them passively without any pain. After history and exam CBC CMP procalcitonin lactic acid blood cultures chest x- ray urinalysis EKG normal saline boluses Zosyn MDM CC: Fever Complicating co-morbidities: Dolly Tabies syndrome Data collected from: Patient and mother Medical records reviewed: December 28, 2022 ER visit here for left knee sprain Differential considered: Includes but not limited to sepsis pneumonia viral syndrome UTI septic joint Exam documented above, pertinent findings include: Tachycardia/fever Lab Test results independently reviewed as above. Pertinent findings: WBC 53.3 hemoglobin 15.7 neutrophils 74 band neutrophils 12 INR 1.5 Sodium 137 potassium 3.4 BUN 40 creatinine 1.55 GFR 56 glucose 137 Lactic acid 2.6 AST 42 ALT 33 Independently reviewed EKG sinus tachycardia rate 150 otherwise normal EKG Imaging studies independently reviewed: Consultations: Treatments: Lactated Ringer's normal saline Zofran IV Tylenol Zosyn Re-evaluations: Discussion: Diagnosis: Sepsis 6:00 p.m. Brennick: Sign out to Dr Page, IV antibiotics have been ordered. Fluid resuscitation has been ordered for sepsis protocol. CT imaging pending. Patient will need admission versus transfer pending results <Darrion Page, DO - Last Filed: 01/03/23 22:04> Lab Data Labs: Lab Results 01/03/23 01/03/23 01/03/23 Range/Units 10:41 16:41 17:10 WBC 53.3 H* (4.5-11.0) X10^3/uL RBC 5.32 (4.5-5.9) X10^6/uL Hgb 15.7 (13.5-17.5) g/dL Hct 46.0 (41-53) % MCV 86.4 (80-100) fL MCH 29.5 (26-34) PG MCHC 34.2 (30-36) % RDW 14.9 H (11.6-14.8) % Plt Count 215 (150-400) X10^3/uL Neut % (Auto) Not Reportable Lymph % (Auto) Not Reportable [place] % (Auto) Not Reportable Eos % (Auto) Not Reportable Baso % (Auto) Not Reportable Lymph # (Auto) Not Reportable [place] # (Auto) Not Reportable Baso # (Auto) Not Reportable Total Counted 100 Seg Neutrophils % 74.0 H (38-70) % Band Neutrophils % 12.0 H (3-7) % Lymphocytes % (Manual) 2.0 L (25-45) % Monocytes % (Manual) 9.0 (2-11) % Eosinophils % (Manual) 1.0 L (2-4) % Metamyelocytes % 2.0 H (-0) % Myelocytes % (-0) % Neutrophils # (Manual) 79748 H (3055-7397) /uL Toxic Granulation Toxic Vacuolation Platelet Estimate Adequate on smear RBC Morphology Normal morphology PT 17.2 H (10.1-12.7) SECONDS INR 1.5 H (0.9-1.3) APTT 32 (26-36) SECONDS Sodium 137 (137-145) mmol/L Potassium 3.4 (3.4-5.1) mmol/L Chloride 100 (98-107) mmol/L Carbon Dioxide 21 L (22-32) mmol/L BUN 40 H (9-20) mg/dL Creatinine 1.55 H (0.66-1.25) mg/dL Estimated GFR 56 L (>60) mL/min BUN/Creatinine Ratio 25.8 H (6-22) Glucose 137 H (70-100) mg/dL Lactate 2.6 H (0.7-2.1) mmol/L Calcium 10.6 H (8.4-10.2) mg/dL Total Bilirubin 0.9 (0.2-1.3) mg/dL AST 42 (17-59) IU/L ALT 33 (<50) IU/L Alkaline Phosphatase 149 H (38-126) U/L Total Protein 7.8 (6.3-8.2) g/dL Albumin 4.4 (3.5-5.0) g/dL Globulin 3.4 (1.7-4.1) g/dL Albumin/Globulin Ratio 1.3 (1.0-2.8) Lipase 33 (23-300) U/L Procalcitonin 183 H (<0.5) ng/mL Urine Color Urine Appearance Urine pH (4.5-8.0) Ur Specific [facility] (1.000-1.035) Urine Protein (Negative) Urine Glucose (UA) (Negative) g/dL Urine Ketones (NEGATIVE) Urine Occult Blood (Negative) Urine Nitrate (Negative) Urine Bilirubin (NEGATIVE) Ur Bilirubin Confirm (Negative) Urine Urobilinogen (0.2) E.U./dL Ur Leukocyte Esterase (NEGATIVE) Urine RBC (0-5/HPF) Urine WBC (0-5/HPF) Ur Squamous Epith Cells (0-5/HPF) Ur Transition Epith Cell (0-5/HPF) Urine Bacteria (None) Ur Culture Indicated? A.calcoaceticus-baumannii cmplx PCR Not detected (Not Detect) Chlamy pneumoniae PCR (Not Detect) Adenovirus (PCR) (Not Detect) Bacteroides fragilis Not detected (Not Detect) B.parapertussis DNA PCR (Not Detecte) Sophie albicans (PCR) Not detected (Not Detect) Sophie auris (PCR) Not detected (Not Detect) C. glabrata (PCR) Not detected (Not Detect) C. krusei (PCR) Not detected (Not Detect) C. parapsilosis (PCR) Not detected (Not Detect) C. tropicalis (PCR) Not detected (Not Detect) Coronavirus OC43 (PCR) (Not Detect) Coronavirus HKU1 (PCR) (Not Detect) Coronavirus 229E (PCR) (Not Detect) SARS-CoV-2 (PCR) (Not Detecte) Coronavirus NL63 (PCR) (Not Detect) C. neoform/gattii (PCR) Not detected (Not Detect) Enterobacterales (PCR) Detected (Not Detect) E. cloacae complex PCR Not detected (Not Detect) Enterococc faecalis PCR Not detected (Not Detect) Enterococc faecium PCR Not detected (Not Detect) E. coli (PCR) Not detected (Not Detect) H. influenzae (PCR) Not detected (Not Detect) Human Metapneumovir PCR (Not Detect) Influenza Type A (PCR) (Not Detect) Influenza Type B (PCR) (Not Detect) Klebsiella aerogenes (PCR) Not detected (Not Detect) Klebsiella oxytoca PCR Not detected (Not Detect) Klebsiella pneumoniae Not detected (Not Detect) List. monocytogenes PCR Not detected (Not Detect) M. pneumoniae (PCR) (Not Detect) N. meningitidis (PCR) Not detected (Not Detect) Parainfluenza 1 (PCR) (Not Detect) Parainfluenza 2 (PCR) (Not Detect) Parainfluenza 3 (PCR) (Not Detect) Parainfluenza 4 (PCR) (Not Detect) Proteus species (PCR) Detected (Not Detect) RSV (PCR) (Not Detect) Entero/Rhino (PCR) (Not Detect) Salmonella spp. (PCR) Not detected (Not Detect) Serratia marcescens PCR Not detected (Not Detect) Staphylococcus sp PCR Not detected (Not Detect) Staph aureus (PCR) Not detected (Not Detect) mecA/C & MREJ Resist Gene Not applicable (Not Detect) mecA/C-Methicil Resis Gene Not applicable (Not Detect) mcr-1 Colistin Res Gene PCR Not applicable (Not Detect) Staph epidermidis (PCR) Not detected (Not Detect) Staph lugdunensis PCR Not detected (Not Detect) S. maltophilia (PCR) Not detected (Not Detect) Streptococcus sp PCR Not detected (Not Detect) Group A Strep (PCR) Not detected (Not Detect) Strep agalactiae (PCR) Not detected (Not Detect) Strep pneumoniae (PCR) Not detected (Not Detect) P. aeruginosa (PCR) Not detected (Not Detect) Shad/B-Vanco Res Genes Not applicable (Not Detect) blaIMP Car res Gene PCR Not detected (Not Detect) KPC-Carbap Res Gene PCR Not detected (Not Detect) blaNDM Car Res Gene PCR Not detected (Not Detect) OXA-48 Carbapenem Resis Gene (PCR) Not detected (Not Detect) blaVIM Car Res Gene PCR Not detected (Not Detect) CTX-M Gene Resistance (PCR) Not detected (Not Detect) 01/03/23 01/03/23 01/03/23 Range/Units 17:20 19:05 19:10 WBC 45.7 H* (4.5-11.0) X10^3/uL RBC 4.22 L (4.5-5.9) X10^6/uL Hgb 12.4 L (13.5-17.5) g/dL Hct 37.2 L (41-53) % MCV 88.0 (80-100) fL MCH 29.4 (26-34) PG MCHC 33.4 (30-36) % RDW 14.9 H (11.6-14.8) % Plt Count 163 (150-400) X10^3/uL Neut % (Auto) Not Reportable Lymph % (Auto) Not Reportable [place] % (Auto) Not Reportable Eos % (Auto) Not Reportable Baso % (Auto) Not Reportable Lymph # (Auto) Not Reportable [place] # (Auto) Not Reportable Baso # (Auto) Not Reportable Total Counted 100 Seg Neutrophils % 73.0 H (38-70) % Band Neutrophils % 16.0 H (3-7) % Lymphocytes % (Manual) 2.0 L (25-45) % Monocytes % (Manual) 5.0 (2-11) % Eosinophils % (Manual) (2-4) % Metamyelocytes % 3.0 H (-0) % Myelocytes % 1.0 H (-0) % Neutrophils # (Manual) 52764 H (9181-5661) /uL Toxic Granulation Present H Toxic Vacuolation Present H Platelet Estimate Adequate on smear RBC Morphology Normal morphology PT (10.1-12.7) SECONDS INR (0.9-1.3) APTT (26-36) SECONDS Sodium (137-145) mmol/L Potassium (3.4-5.1) mmol/L Chloride (98-107) mmol/L Carbon Dioxide (22-32) mmol/L BUN (9-20) mg/dL Creatinine (0.66-1.25) mg/dL Estimated GFR (>60) mL/min BUN/Creatinine Ratio (6-22) Glucose (70-100) mg/dL Lactate 1.5 (0.7-2.1) mmol/L Calcium (8.4-10.2) mg/dL Total Bilirubin (0.2-1.3) mg/dL AST (17-59) IU/L ALT (<50) IU/L Alkaline Phosphatase (38-126) U/L Total Protein (6.3-8.2) g/dL Albumin (3.5-5.0) g/dL Globulin (1.7-4.1) g/dL Albumin/Globulin Ratio (1.0-2.8) Lipase (23-300) U/L Procalcitonin (<0.5) ng/mL Urine Color Yellow Urine Appearance Sl cloudy Urine pH 5.0 (4.5-8.0) Ur Specific [facility] <=1.005 (1.000-1.035) Urine Protein 1+ H (Negative) Urine Glucose (UA) Negative (Negative) g/dL Urine Ketones Trace H (NEGATIVE) Urine Occult Blood 2+ H (Negative) Urine Nitrate Negative (Negative) Urine Bilirubin 1+ H (NEGATIVE) Ur Bilirubin Confirm Negative (Negative) Urine Urobilinogen 1.0 (0.2) E.U./dL Ur Leukocyte Esterase 1+ H (NEGATIVE) Urine RBC 1-5/hpf (0-5/HPF) Urine WBC >100/hpf H (0-5/HPF) Ur Squamous Epith Cells 1-5 /hpf (0-5/HPF) Ur Transition Epith Cell 5-10/hpf H (0-5/HPF) Urine Bacteria Few (2-10) H (None) Ur Culture Indicated? Specimen cultured A.calcoaceticus-baumannii cmplx PCR (Not Detect) Chlamy pneumoniae PCR Not detected (Not Detect) Adenovirus (PCR) Not detected (Not Detect) Bacteroides fragilis (Not Detect) B.parapertussis DNA PCR Not detected (Not Detecte) Sophie albicans (PCR) (Not Detect) Sophie auris (PCR) (Not Detect) C. glabrata (PCR) (Not Detect) C. krusei (PCR) (Not Detect) C. parapsilosis (PCR) (Not Detect) C. tropicalis (PCR) (Not Detect) Coronavirus OC43 (PCR) Not detected (Not Detect) Coronavirus HKU1 (PCR) Not detected (Not Detect) Coronavirus 229E (PCR) Not detected (Not Detect) SARS-CoV-2 (PCR) Not detected (Not Detecte) Coronavirus NL63 (PCR) Not detected (Not Detect) C. neoform/gattii (PCR) (Not Detect) Enterobacterales (PCR) (Not Detect) E. cloacae complex PCR (Not Detect) Enterococc faecalis PCR (Not Detect) Enterococc faecium PCR (Not Detect) E. coli (PCR) (Not Detect) H. influenzae (PCR) (Not Detect) Human Metapneumovir PCR Not detected (Not Detect) Influenza Type A (PCR) Not detected (Not Detect) Influenza Type B (PCR) Not detected (Not Detect) Klebsiella aerogenes (PCR) (Not Detect) Klebsiella oxytoca PCR (Not Detect) Klebsiella pneumoniae (Not Detect) List. monocytogenes PCR (Not Detect) M. pneumoniae (PCR) Not detected (Not Detect) N. meningitidis (PCR) (Not Detect) Parainfluenza 1 (PCR) Not detected (Not Detect) Parainfluenza 2 (PCR) Not detected (Not Detect) Parainfluenza 3 (PCR) Not detected (Not Detect) Parainfluenza 4 (PCR) Not detected (Not Detect) Proteus species (PCR) (Not Detect) RSV (PCR) Not detected (Not Detect) Entero/Rhino (PCR) Not detected (Not Detect) Salmonella spp. (PCR) (Not Detect) Serratia marcescens PCR (Not Detect) Staphylococcus sp PCR (Not Detect) Staph aureus (PCR) (Not Detect) mecA/C & MREJ Resist Gene (Not Detect) mecA/C-Methicil Resis Gene (Not Detect) mcr-1 Colistin Res Gene PCR (Not Detect) Staph epidermidis (PCR) (Not Detect) Staph lugdunensis PCR (Not Detect) S. maltophilia (PCR) (Not Detect) Streptococcus sp PCR (Not Detect) Group A Strep (PCR) (Not Detect) Strep agalactiae (PCR) (Not Detect) Strep pneumoniae (PCR) (Not Detect) P. aeruginosa (PCR) (Not Detect) Shad/B-Vanco Res Genes (Not Detect) blaIMP Car res Gene PCR (Not Detect) KPC-Carbap Res Gene PCR (Not Detect) blaNDM Car Res Gene PCR (Not Detect) OXA-48 Carbapenem Resis Gene (PCR) (Not Detect) blaVIM Car Res Gene PCR (Not Detect) CTX-M Gene Resistance (PCR) (Not Detect) Imaging Data CT chest/abd/pelvis: Radiologist's Impression: PROCEDURE: CT CHEST ABD PEL W CON INDICATIONS: sepsis TECHNIQUE: After the administration of intravenous contrast, 5 mm thick sections acquired from the lung apices to the symphysis. 5 mm coronal and sagittal reformats were performed, with additional 7 mm MIP reformats through the lungs. For radiation dose reduction, the following was used: automated exposure control, adjustment of mA and/or kV according to patient size. COMPARISON: None. FINDINGS: Image quality: Diagnostic CHEST: Lungs and pleura: Upper lobe predominant pulmonary emphysematous changes. Patchy bibasilar ground-glass opacities and more dense linear opacities of the lingula. Findings are likely related to atelectasis. No pleural effusions or pneumothorax. Central and peripheral airways appear patent and normal in caliber. Mediastinum: Heart size is normal. No pericardial effusion. No mediastinal or hilar adenopathy by size criteria. Thoracic aorta and central pulmonary arteries are normal in size. Coronary atherosclerotic vascular calcifications are noted. Atherosclerotic calcifications of the aortic arch are present. Esophagus is normal in caliber. Small hiatal hernia. Chest wall: No axillary or supraclavicular adenopathy by size criteria. Thyroid gland is unremarkable without suspicious nodules.. Osseous structures of the chest appear unremarkable. ABDOMEN: Solid organs: Liver is unremarkable. Gallbladder contains a gallstone. No CT evidence for acute cholecystitis.. Biliary system is non dilated. Pancreas is unremarkable. Spleen is normal in size. No adrenal nodules. Left kidney is unremarkable in appearance. No hydronephrosis or perinephric stranding. Left ureter is normal in course and caliber. There are multiple prominent right-sided renal stones measuring up to 11 mm in diameter. There is a 5 mm stone noted at the right ureteropelvic junction. Mild pelviectasis with suggestion of mild enhancement/thickening of the right renal pelvis. Minimal right perinephric stranding. Remainder of the right ureter is normal in course and caliber. Peritoneum and bowel: Bowel loops demonstrate normal wall thickness and caliber. No free fluid No free air. Minimal stranding and inflammatory changes surrounding the cecum which appears to be in close proximity to the right kidney as described above. Inflammatory changes may be secondary to right-sided obstructive uropathy. Nodes and vessels: No retroperitoneal or mesenteric adenopathy by size criteria. Aorta and inferior vena cava are normal in size. Miscellaneous: No significant ventral hernias. PELVIS: Genitourinary: Bladder wall thickness appears normal for degree of distention. Reproductive organs appear unremarkable as visualized. Mildly prominent prostate gland. Miscellaneous: No inguinal hernias. No pelvic adenopathy. Bones: No suspicious bony lesions. No acute vertebral body compression fractures. Multilevel spondylosis of the imaged spine. IMPRESSION: 1. Bibasilar ground-glass opacities likely representing atelectasis although early developing airspace disease/pneumonia may have a similar appearance. 2. Right nephrolithiasis with obstructing 5 mm stone at the right ureteropelvic junction with associated right pelviectasis and right renal pelvic wall hyperemia. There is also mild right perinephric stranding. Findings may represent obstructive uropathy with concurrent infectious uropathy. 3. Mild inflammatory changes of the cecum which is favored to be secondary to inflammatory changes of the right kidney as described above. However, early colitis may have a similar appearance if clinically appropriate. 4. Cholelithiasis without CT evidence for acute cholecystitis. However, consider right upper quadrant ultrasound for further evaluation if clinically indicated. 5. Other chronic findings as above. [facility] Narrative Medical decision making narrative: Patient brought here by mother from home for complaints of fever and vomiting. Patient had surgery on his left elbow at the beginning of summer of this year as well as left hip. He has been doing well with that. Had hip surgery done here by Dr. Gordon. He had elbow surgery done by [facility]. Yesterday had a headache. Mother gave him Tylenol yesterday. This morning he has been sleeping most of the day. Had episode of vomiting. He denies any abdominal pain. No cough cold or congestion. No urinary changes. He states his elbow and hip are nonpainful. Nonpainful on palpation of each of the joints and able to move them passively without any pain. After history and exam CBC CMP procalcitonin lactic acid blood cultures chest x- ray urinalysis EKG normal saline boluses Zosyn [facility] CC: Fever Complicating co-morbidities: Dolly Tabies syndrome Data collected from: Patient and mother Medical records reviewed: December 28, 2022 ER visit here for left knee sprain Differential considered: Includes but not limited to sepsis pneumonia viral syndrome UTI septic joint Exam documented above, pertinent findings include: Tachycardia/fever Lab Test results independently reviewed as above. Pertinent findings: WBC 53.3 hemoglobin 15.7 neutrophils 74 band neutrophils 12 INR 1.5 Sodium 137 potassium 3.4 BUN 40 creatinine 1.55 GFR 56 glucose 137 Lactic acid 2.6 AST 42 ALT 33 Independently reviewed EKG sinus tachycardia rate 150 otherwise normal EKG Imaging studies independently reviewed: Consultations: Treatments: Lactated Ringer's normal saline Zofran IV Tylenol Zosyn Re-evaluations: Discussion: Diagnosis: Sepsis 6:00 p.m. Jan: Sign out to Dr Page, IV antibiotics have been ordered. Fluid resuscitation has been ordered for sepsis protocol. CT imaging pending. Patient will need admission versus transfer pending results Dr Page: Received turned over. Reviewed patient's history and physical and workup up to this point. I do believe that the patient continues to be under resuscitated. He is put out very little urine despite having a Arango catheter in place. More fluids were administered. This did improve his heart rate although he did remain tachycardic into the low 100s. His blood pressure improved with systolic blood pressure greater than 100 and a mean arterial pressure greater than 70. He is received vancomycin and Rocephin. Blood cultures were obtained. Lactate is improved. Patient's mother states that it is not uncommon for him to have a systolic blood pressure in the low 100s. CT scan shows a right-sided ureteral stone and other findings that are concerning for pyelo. This is most likely the source of his infection. Urinalysis shows bacteria and white blood cells. I did discuss the case with Dr. Krause urologist on-call at the [facility] who states the patient does require urology intervention to include stent placement. I then discussed the case with Dr. Aguayo gasoline plant operator at the [facility] who accepts the patient for transfer. He recommended placing a central line. I attempted to place a right IJ however not sure whether it was related to the patient's anatomy or potentially under resuscitation but I was not convinced of identifying the IJ. The carotid artery was easily identified. Tried several different positions and also Trendelenburg and also reverse Trendelenburg without any improvement. I considered placing another line such as a left-sided IJ or femoral or subclavian although given his mean arterial pressure now of 72, his improvement clinically I will hold on any further attempts at central line for now and defer this for the receiving facility if needed. Mother understands the need for transfer. Patient is stable for transport. <Nubia Rodriguez, - Last Filed: 01/06/23 17:39> Lab Data Labs: Lab Results 01/03/23 01/03/23 01/03/23 Range/Units 10:41 16:41 17:10 WBC 53.3 H* (4.5-11.0) X10^3/uL RBC 5.32 (4.5-5.9) X10^6/uL Hgb 15.7 (13.5-17.5) g/dL Hct 46.0 (41-53) % MCV 86.4 (80-100) fL MCH 29.5 (26-34) PG MCHC 34.2 (30-36) % RDW 14.9 H (11.6-14.8) % Plt Count 215 (150-400) X10^3/uL Neut % (Auto) Not Reportable Lymph % (Auto) Not Reportable [place] % (Auto) Not Reportable Eos % (Auto) Not Reportable Baso % (Auto) Not Reportable Lymph # (Auto) Not Reportable [place] # (Auto) Not Reportable Baso # (Auto) Not Reportable Total Counted 100 Seg Neutrophils % 74.0 H (38-70) % Band Neutrophils % 12.0 H (3-7) % Lymphocytes % (Manual) 2.0 L (25-45) % Monocytes % (Manual) 9.0 (2-11) % Eosinophils % (Manual) 1.0 L (2-4) % Metamyelocytes % 2.0 H (-0) % Myelocytes % (-0) % Neutrophils # (Manual) 92288 H (3002-8659) /uL Toxic Granulation Toxic Vacuolation Platelet Estimate Adequate on smear RBC Morphology Normal morphology PT 17.2 H (10.1-12.7) SECONDS INR 1.5 H (0.9-1.3) APTT 32 (26-36) SECONDS Sodium 137 (137-145) mmol/L Potassium 3.4 (3.4-5.1) mmol/L Chloride 100 (98-107) mmol/L Carbon Dioxide 21 L (22-32) mmol/L BUN 40 H (9-20) mg/dL Creatinine 1.55 H (0.66-1.25) mg/dL Estimated GFR 56 L (>60) mL/min BUN/Creatinine Ratio 25.8 H (6-22) Glucose 137 H (70-100) mg/dL Lactate 2.6 H (0.7-2.1) mmol/L Calcium 10.6 H (8.4-10.2) mg/dL Total Bilirubin 0.9 (0.2-1.3) mg/dL AST 42 (17-59) IU/L ALT 33 (<50) IU/L Alkaline Phosphatase 149 H (38-126) U/L Total Protein 7.8 (6.3-8.2) g/dL Albumin 4.4 (3.5-5.0) g/dL Globulin 3.4 (1.7-4.1) g/dL Albumin/Globulin Ratio 1.3 (1.0-2.8) Lipase 33 (23-300) U/L Procalcitonin 183 H (<0.5) ng/mL Urine Color Urine Appearance Urine pH (4.5-8.0) Ur Specific [facility] (1.000-1.035) Urine Protein (Negative) Urine Glucose (UA) (Negative) g/dL Urine Ketones (NEGATIVE) Urine Occult Blood (Negative) Urine Nitrate (Negative) Urine Bilirubin (NEGATIVE) Ur Bilirubin Confirm (Negative) Urine Urobilinogen (0.2) E.U./dL Ur Leukocyte Esterase (NEGATIVE) Urine RBC (0-5/HPF) Urine WBC (0-5/HPF) Ur Squamous Epith Cells (0-5/HPF) Ur Transition Epith Cell (0-5/HPF) Urine Bacteria (None) Ur Culture Indicated? A.calcoaceticus-baumannii cmplx PCR Not detected (Not Detect) Chlamy pneumoniae PCR (Not Detect) Adenovirus (PCR) (Not Detect) Bacteroides fragilis Not detected (Not Detect) B.parapertussis DNA PCR (Not Detecte) Sophie albicans (PCR) Not detected (Not Detect) Sophie auris (PCR) Not detected (Not Detect) C. glabrata (PCR) Not detected (Not Detect) C. krusei (PCR) Not detected (Not Detect) C. parapsilosis (PCR) Not detected (Not Detect) C. tropicalis (PCR) Not detected (Not Detect) Coronavirus OC43 (PCR) (Not Detect) Coronavirus HKU1 (PCR) (Not Detect) Coronavirus 229E (PCR) (Not Detect) SARS-CoV-2 (PCR) (Not Detecte) Coronavirus NL63 (PCR) (Not Detect) C. neoform/gattii (PCR) Not detected (Not Detect) Enterobacterales (PCR) Detected (Not Detect) E. cloacae complex PCR Not detected (Not Detect) Enterococc faecalis PCR Not detected (Not Detect) Enterococc faecium PCR Not detected (Not Detect) E. coli (PCR) Not detected (Not Detect) H. influenzae (PCR) Not detected (Not Detect) Human Metapneumovir PCR (Not Detect) Influenza Type A (PCR) (Not Detect) Influenza Type B (PCR) (Not Detect) Klebsiella aerogenes (PCR) Not detected (Not Detect) Klebsiella oxytoca PCR Not detected (Not Detect) Klebsiella pneumoniae Not detected (Not Detect) List. monocytogenes PCR Not detected (Not Detect) M. pneumoniae (PCR) (Not Detect) N. meningitidis (PCR) Not detected (Not Detect) Parainfluenza 1 (PCR) (Not Detect) Parainfluenza 2 (PCR) (Not Detect) Parainfluenza 3 (PCR) (Not Detect) Parainfluenza 4 (PCR) (Not Detect) Proteus species (PCR) Detected (Not Detect) RSV (PCR) (Not Detect) Entero/Rhino (PCR) (Not Detect) Salmonella spp. (PCR) Not detected (Not Detect) Serratia marcescens PCR Not detected (Not Detect) Staphylococcus sp PCR Not detected (Not Detect) Staph aureus (PCR) Not detected (Not Detect) mecA/C & MREJ Resist Gene Not applicable (Not Detect) mecA/C-Methicil Resis Gene Not applicable (Not Detect) mcr-1 Colistin Res Gene PCR Not applicable (Not Detect) Staph epidermidis (PCR) Not detected (Not Detect) Staph lugdunensis PCR Not detected (Not Detect) S. maltophilia (PCR) Not detected (Not Detect) Streptococcus sp PCR Not detected (Not Detect) Group A Strep (PCR) Not detected (Not Detect) Strep agalactiae (PCR) Not detected (Not Detect) Strep pneumoniae (PCR) Not detected (Not Detect) P. aeruginosa (PCR) Not detected (Not Detect) Shad/B-Vanco Res Genes Not applicable (Not Detect) blaIMP Car res Gene PCR Not detected (Not Detect) KPC-Carbap Res Gene PCR Not detected (Not Detect) blaNDM Car Res Gene PCR Not detected (Not Detect) OXA-48 Carbapenem Resis Gene (PCR) Not detected (Not Detect) blaVIM Car Res Gene PCR Not detected (Not Detect) CTX-M Gene Resistance (PCR) Not detected (Not Detect) 01/03/23 01/03/23 01/03/23 Range/Units 17:20 19:05 19:10 WBC 45.7 H* (4.5-11.0) X10^3/uL RBC 4.22 L (4.5-5.9) X10^6/uL Hgb 12.4 L (13.5-17.5) g/dL Hct 37.2 L (41-53) % MCV 88.0 (80-100) fL MCH 29.4 (26-34) PG MCHC 33.4 (30-36) % RDW 14.9 H (11.6-14.8) % Plt Count 163 (150-400) X10^3/uL Neut % (Auto) Not Reportable Lymph % (Auto) Not Reportable [place] % (Auto) Not Reportable Eos % (Auto) Not Reportable Baso % (Auto) Not Reportable Lymph # (Auto) Not Reportable [place] # (Auto) Not Reportable Baso # (Auto) Not Reportable Total Counted 100 Seg Neutrophils % 73.0 H (38-70) % Band Neutrophils % 16.0 H (3-7) % Lymphocytes % (Manual) 2.0 L (25-45) % Monocytes % (Manual) 5.0 (2-11) % Eosinophils % (Manual) (2-4) % Metamyelocytes % 3.0 H (-0) % Myelocytes % 1.0 H (-0) % Neutrophils # (Manual) 22998 H (6270-5918) /uL Toxic Granulation Present H Toxic Vacuolation Present H Platelet Estimate Adequate on smear RBC Morphology Normal morphology PT (10.1-12.7) SECONDS INR (0.9-1.3) APTT (26-36) SECONDS Sodium (137-145) mmol/L Potassium (3.4-5.1) mmol/L Chloride (98-107) mmol/L Carbon Dioxide (22-32) mmol/L BUN (9-20) mg/dL Creatinine (0.66-1.25) mg/dL Estimated GFR (>60) mL/min BUN/Creatinine Ratio (6-22) Glucose (70-100) mg/dL Lactate 1.5 (0.7-2.1) mmol/L Calcium (8.4-10.2) mg/dL Total Bilirubin (0.2-1.3) mg/dL AST (17-59) IU/L ALT (<50) IU/L Alkaline Phosphatase (38-126) U/L Total Protein (6.3-8.2) g/dL Albumin (3.5-5.0) g/dL Globulin (1.7-4.1) g/dL Albumin/Globulin Ratio (1.0-2.8) Lipase (23-300) U/L Procalcitonin (<0.5) ng/mL Urine Color Yellow Urine Appearance Sl cloudy Urine pH 5.0 (4.5-8.0) Ur Specific [facility] <=1.005 (1.000-1.035) Urine Protein 1+ H (Negative) Urine Glucose (UA) Negative (Negative) g/dL Urine Ketones Trace H (NEGATIVE) Urine Occult Blood 2+ H (Negative) Urine Nitrate Negative (Negative) Urine Bilirubin 1+ H (NEGATIVE) Ur Bilirubin Confirm Negative (Negative) Urine Urobilinogen 1.0 (0.2) E.U./dL Ur Leukocyte Esterase 1+ H (NEGATIVE) Urine RBC 1-5/hpf (0-5/HPF) Urine WBC >100/hpf H (0-5/HPF) Ur Squamous Epith Cells 1-5 /hpf (0-5/HPF) Ur Transition Epith Cell 5-10/hpf H (0-5/HPF) Urine Bacteria Few (2-10) H (None) Ur Culture Indicated? Specimen cultured A.calcoaceticus-baumannii cmplx PCR (Not Detect) Chlamy pneumoniae PCR Not detected (Not Detect) Adenovirus (PCR) Not detected (Not Detect) Bacteroides fragilis (Not Detect) B.parapertussis DNA PCR Not detected (Not Detecte) Sophie albicans (PCR) (Not Detect) Sophie auris (PCR) (Not Detect) C. glabrata (PCR) (Not Detect) C. krusei (PCR) (Not Detect) C. parapsilosis (PCR) (Not Detect) C. tropicalis (PCR) (Not Detect) Coronavirus OC43 (PCR) Not detected (Not Detect) Coronavirus HKU1 (PCR) Not detected (Not Detect) Coronavirus 229E (PCR) Not detected (Not Detect) SARS-CoV-2 (PCR) Not detected (Not Detecte) Coronavirus NL63 (PCR) Not detected (Not Detect) C. neoform/gattii (PCR) (Not Detect) Enterobacterales (PCR) (Not Detect) E. cloacae complex PCR (Not Detect) Enterococc faecalis PCR (Not Detect) Enterococc faecium PCR (Not Detect) E. coli (PCR) (Not Detect) H. influenzae (PCR) (Not Detect) Human Metapneumovir PCR Not detected (Not Detect) Influenza Type A (PCR) Not detected (Not Detect) Influenza Type B (PCR) Not detected (Not Detect) Klebsiella aerogenes (PCR) (Not Detect) Klebsiella oxytoca PCR (Not Detect) Klebsiella pneumoniae (Not Detect) List. monocytogenes PCR (Not Detect) M. pneumoniae (PCR) Not detected (Not Detect) N. meningitidis (PCR) (Not Detect) Parainfluenza 1 (PCR) Not detected (Not Detect) Parainfluenza 2 (PCR) Not detected (Not Detect) Parainfluenza 3 (PCR) Not detected (Not Detect) Parainfluenza 4 (PCR) Not detected (Not Detect) Proteus species (PCR) (Not Detect) RSV (PCR) Not detected (Not Detect) Entero/Rhino (PCR) Not detected (Not Detect) Salmonella spp. (PCR) (Not Detect) Serratia marcescens PCR (Not Detect) Staphylococcus sp PCR (Not Detect) Staph aureus (PCR) (Not Detect) mecA/C & MREJ Resist Gene (Not Detect) mecA/C-Methicil Resis Gene (Not Detect) mcr-1 Colistin Res Gene PCR (Not Detect) Staph epidermidis (PCR) (Not Detect) Staph lugdunensis PCR (Not Detect) S. maltophilia (PCR) (Not Detect) Streptococcus sp PCR (Not Detect) Group A Strep (PCR) (Not Detect) Strep agalactiae (PCR) (Not Detect) Strep pneumoniae (PCR) (Not Detect) P. aeruginosa (PCR) (Not Detect) Shad/B-Vanco Res Genes (Not Detect) blaIMP Car res Gene PCR (Not Detect) KPC-Carbap Res Gene PCR (Not Detect) blaNDM Car Res Gene PCR (Not Detect) OXA-48 Carbapenem Resis Gene (PCR) (Not Detect) blaVIM Car Res Gene PCR (Not Detect) CTX-M Gene Resistance (PCR) (Not Detect) MDM Narrative Medical decision making narrative: Patient brought here by mother from home for complaints of fever and vomiting. Patient had surgery on his left elbow at the beginning of summer of this year as well as left hip. He has been doing well with that. Had hip surgery done here by Dr. Gordon. He had elbow surgery done by [facility]. Yesterday had a headache. Mother gave him Tylenol yesterday. This morning he has been sleeping most of the day. Had episode of vomiting. He denies any abdominal pain. No cough cold or congestion. No urinary changes. He states his elbow and hip are nonpainful. Nonpainful on palpation of each of the joints and able to move them passively without any pain. After history and exam CBC CMP procalcitonin lactic acid blood cultures chest x- ray urinalysis EKG normal saline boluses Zosyn MDM CC: Fever Complicating co-morbidities: Dolly Tabies syndrome Data collected from: Patient and mother Medical records reviewed: December 28, 2022 ER visit here for left knee sprain Differential considered: Includes but not limited to sepsis pneumonia viral syndrome UTI septic joint Exam documented above, pertinent findings include: Tachycardia/fever Lab Test results independently reviewed as above. Pertinent findings: WBC 53.3 hemoglobin 15.7 neutrophils 74 band neutrophils 12 INR 1.5 Sodium 137 potassium 3.4 BUN 40 creatinine 1.55 GFR 56 glucose 137 Lactic acid 2.6 AST 42 ALT 33 Independently reviewed EKG sinus tachycardia rate 150 otherwise normal EKG Imaging studies independently reviewed: Consultations: Treatments: Lactated Ringer's normal saline Zofran IV Tylenol Zosyn Re-evaluations: Discussion: Diagnosis: Sepsis 6:00 p.m. Brennick: Sign out to Dr Page, IV antibiotics have been ordered. Fluid resuscitation has been ordered for sepsis protocol. CT imaging pending. Patient will need admission versus transfer pending results Dr Page: Received turned over. Reviewed patient's history and physical and workup up to this point. I do believe that the patient continues to be under resuscitated. He is put out very little urine despite having a Arango catheter in place. More fluids were administered. This did improve his heart rate although he did remain tachycardic into the low 100s. His blood pressure improved with systolic blood pressure greater than 100 and a mean arterial pressure greater than 70. He is received vancomycin and Rocephin. Blood cultures were obtained. Lactate is improved. Patient's mother states that it is not uncommon for him to have a systolic blood pressure in the low 100s. CT scan shows a right-sided ureteral stone and other findings that are concerning for pyelo. This is most likely the source of his infection. Urinalysis shows bacteria and white blood cells. I did discuss the case with Dr. Krause urologist on-call at the [facility] who states the patient does require urology intervention to include stent placement. I then discussed the case with Dr. Aguayo gasoline plant operator at the [facility] who accepts the patient for transfer. He recommended placing a central line. I attempted to place a right IJ however not sure whether it was related to the patient's anatomy or potentially under resuscitation but I was not convinced of identifying the IJ. The carotid artery was easily identified. Tried several different positions and also Trendelenburg and also reverse Trendelenburg without any improvement. I considered placing another line such as a left-sided IJ or femoral or subclavian although given his mean arterial pressure now of 72, his improvement clinically I will hold on any further attempts at central line for now and defer this for the receiving facility if needed. Mother understands the need for transfer. Patient is stable for transport. patient had positive blood culture from 01/03/2023 grew Proteus appears pansensitive except for resistant to tetracycline and Tygacil in. Patient was transferred to [facility] to be [facility] will forward culture results on Critical Care Time <Darrion Page, - Last Filed: 01/03/23 22:04> Critical Care Time Critical Care Time: Yes Total Critical Care Time: 45 Attestation: The high probability of a clinically significant, sudden or life threatening deterioration of the [cardiovascular, neurologic, renal] system(s) required my full and direct attention, intervention and personal management. The aggregate critical care time was [45] minutes. This time is in addition to time spent performing reported procedures but includes the following: [x] Data Review and interpretation [x] Patient assessment and monitoring of vital signs [x] Documentation [x] Medication orders and management Discharge Plan Departure Patient Disposition: [facility] Clinical Impression: Calculus, ureteral, Acute pyelonephritis Prescriptions: No Action cholecalciferol (vitamin D3) [Vitamin D3] 50 mcg (2,000 unit) Tablet 50 mcg PO DAILY Zyrtec 10 mg Capsule 10 mg PO DAILY [id number] 1 tab PO DAILY olopatadine 0.2 % Drops 1 drp OPHTHALMIC (EYE) QID PRN (Reason: conjunctavitis) Rx Instructions: 1 drop to each eye QID PRN conjuntativis acetaminophen 325 mg Tablet 650 mg PO Q6H Qty: 120 0RF aspirin 81 mg Tablet,Delayed Release (Dr/Ec) 81 mg PO BID Qty: 84 0RF ibuprofen 400 mg Tablet 400 mg PO Q4H Qty: 120 0RF docusate sodium 100 mg Capsule 100 mg PO BID Qty: 30 0RF hydrocodone-acetaminophen 5-325 mg Tablet 1 tab PO Q4H PRN (Reason: Pain, Moderate (4-6)) Qty: 10 0RF ondansetron 4 mg Tablet,Disintegrating 4 mg PO Q4HR PRN (Reason: Nausea) Qty: 20 0RF polyethylene glycol 3350 17 gram Powder In Packet 17 gm PO DAILY PRN (Reason: Constipation) Qty: 20 0RF sennosides [senna] 8.6 mg Tablet 17.2 mg PO BID Qty: 20 0RF levofloxacin 750 mg tablet 750 mg PO DAILY Qty: 5 0RF pantoprazole [Protonix] 40 mg tablet,delayed release (DR/EC) 40 mg PO DAILY Qty: 30 0RF Referrals: Thalia Torres PA-C [Primary Care Provider] -
[2023-01-03] MEDS: LIDOCAINE 2% (GLYDO) 6 ML GEL TOP (16:42)
[2023-01-03] MEDS: ONDANSETRON 4 MG/2 ML INJ IV (16:42)
[2023-01-03] MEDS: SODIUM CHLORIDE 0.9% 1,000 ML 1000 ML IV (16:43)
--- NOTE | 2023-01-03 16:43 | DI.CT.S_ITS ---
PROCEDURE: CT CHEST ABD PEL W CON INDICATIONS: sepsis TECHNIQUE: After the administration of intravenous contrast, 5 mm thick sections acquired from the lung apices to the symphysis. 5 mm coronal and sagittal reformats were performed, with additional 7 mm MIP reformats through the lungs. For radiation dose reduction, the following was used: automated exposure control, adjustment of mA and/or kV according to patient size. COMPARISON: None. FINDINGS: Image quality: Diagnostic CHEST: Lungs and pleura: Upper lobe predominant pulmonary emphysematous changes. Patchy bibasilar ground-glass opacities and more dense linear opacities of the lingula. Findings are likely related to atelectasis. No pleural effusions or pneumothorax. Central and peripheral airways appear patent and normal in caliber. Mediastinum: Heart size is normal. No pericardial effusion. No mediastinal or hilar adenopathy by size criteria. Thoracic aorta and central pulmonary arteries are normal in size. Coronary atherosclerotic vascular calcifications are noted. Atherosclerotic calcifications of the aortic arch are present. Esophagus is normal in caliber. Small hiatal hernia. Chest wall: No axillary or supraclavicular adenopathy by size criteria. Thyroid gland is unremarkable without suspicious nodules.. Osseous structures of the chest appear unremarkable. ABDOMEN: Solid organs: Liver is unremarkable. Gallbladder contains a gallstone. No CT evidence for acute cholecystitis.. Biliary system is non dilated. Pancreas is unremarkable. Spleen is normal in size. No adrenal nodules. Left kidney is unremarkable in appearance. No hydronephrosis or perinephric stranding. Left ureter is normal in course and caliber. There are multiple prominent right-sided renal stones measuring up to 11 mm in diameter. There is a 5 mm stone noted at the right ureteropelvic junction. Mild pelviectasis with suggestion of mild enhancement/thickening of the right renal pelvis. Minimal right perinephric stranding. Remainder of the right ureter is normal in course and caliber. Peritoneum and bowel: Bowel loops demonstrate normal wall thickness and caliber. No free fluid No free air. Minimal stranding and inflammatory changes surrounding the cecum which appears to be in close proximity to the right kidney as described above. Inflammatory changes may be secondary to right-sided obstructive uropathy. Nodes and vessels: No retroperitoneal or mesenteric adenopathy by size criteria. Aorta and inferior vena cava are normal in size. Miscellaneous: No significant ventral hernias. PELVIS: Genitourinary: Bladder wall thickness appears normal for degree of distention. Reproductive organs appear unremarkable as visualized. Mildly prominent prostate gland. Miscellaneous: No inguinal hernias. No pelvic adenopathy. Bones: No suspicious bony lesions. No acute vertebral body compression fractures. Multilevel spondylosis of the imaged spine. IMPRESSION: 1. Bibasilar ground-glass opacities likely representing atelectasis although early developing airspace disease/pneumonia may have a similar appearance. 2. Right nephrolithiasis with obstructing 5 mm stone at the right ureteropelvic junction with associated right pelviectasis and right renal pelvic wall hyperemia. There is also mild right perinephric stranding. Findings may represent obstructive uropathy with concurrent infectious uropathy. 3. Mild inflammatory changes of the cecum which is favored to be secondary to inflammatory changes of the right kidney as described above. However, early colitis may have a similar appearance if clinically appropriate. 4. Cholelithiasis without CT evidence for acute cholecystitis. However, consider right upper quadrant ultrasound for further evaluation if clinically indicated. 5. Other chronic findings as above. Dictated by: Bobby Miranda M.D. on 01/03/2023 at 18:50 Approved by: Bobby Miranda M.D. on 01/03/2023 at 19:00
[2023-01-03] MEDS: ACETAMINOPHEN IV 1,000 MG/100 ML VIAL 400 MG IV (16:44)
[2023-01-03 17:01] LABS: Hemoglobin 15.7 g/dL (13.5-17.5); Mean Corpuscular HGB Conc 34.2 % (30-36); Mean Corpuscular Hemoglobin 29.5 PG (26-34); Mean Corpuscular Volume 86.4 fL (80-100); Platelet Count 215 X10^3/uL (150-400); Red Blood Cell Count 5.32 X10^6/uL (4.5-5.9); Red Cell Distribution Width 14.9 % (11.6-14.8)
[2023-01-03 17:02] LABS: Add Manual Diff / Slide Review YES
[2023-01-03 17:03] LABS: White Blood Cell Count 53.3 X10^3/uL (4.5-11.0)
[2023-01-03 17:09] LABS: INR 1.5 (0.9-1.3); Prothrombin Time 17.2 SECONDS (10.1-12.7)
[2023-01-03 17:11] LABS: PTT Partial Thromboplastin Tim 32 SECONDS (26-36)
[2023-01-03 17:12] LABS: Lactate (Lactic Acid) 2.6 mmol/L (0.7-2.1)
[2023-01-03 17:14] LABS: Alanine Aminotransferase 33 IU/L (<50); Albumin 4.4 g/dL (3.5-5.0); Albumin Globulin Ratio 1.3 (1.0-2.8); Alkaline Phosphatase 149 U/L (38-126); Aspartate Aminotransferase 42 IU/L (17-59); BUN Creatinine Ratio 25.8 (6-22); Bilirubin Total 0.9 mg/dL (0.2-1.3); Blood Urea Nitrogen 40 mg/dL (9-20); Calcium 10.6 mg/dL (8.4-10.2); Carbon Dioxide 21 mmol/L (22-32); Chloride 100 mmol/L (98-107); Estimated Glomerular Filt Rate 56 mL/min (>60); Globulin 3.4 g/dL (1.7-4.1); Glucose 137 mg/dL (70-100); HEMOLYSIS < 15 (0-50); Lipase 33 U/L (23-300); Potassium 3.4 mmol/L (3.4-5.1); Sodium 137 mmol/L (137-145); Total Protein 7.8 g/dL (6.3-8.2)
[2023-01-03 17:17] LABS: Platelet Estimate Adequate on smear; RBC Morphology Normal Morphology; Total Cells Counted 100
[2023-01-03] MEDS: LACTATED RINGERS 1,000 ML 1000 ML IV ×2 (17:42→19:09)
[2023-01-03 17:54] LABS: Procalcitonin 183 ng/mL (<0.5)
[2023-01-03 18:14] LABS: Adenovirus Not Detected (Not Detect); B. parapertussis Not Detected (Not Detecte); Bordetella pertussis Not Detected (Not Detect); Chlamydophila pneumoniae Not Detected (Not Detect); Coronavirus 229E Not Detected (Not Detect); Coronavirus HKU1 Not Detected (Not Detect); Coronavirus NL 63 Not Detected (Not Detect); Coronavirus OC43 Not Detected (Not Detect); Human Metapneumovirus Not Detected (Not Detect); Human Rhinovirus/Enterovirus Not Detected (Not Detect); Influenza A Not Detected (Not Detect); Influenza B Not Detected (Not Detect); Mycoplasma pneumoniae Not Detected (Not Detect); Parainfluenza Virus 1 Not Detected (Not Detect); Parainfluenza Virus 2 Not Detected (Not Detect); Parainfluenza Virus 3 Not Detected (Not Detect); Parainfluenza Virus 4 Not Detected (Not Detect); Respiratory Syncytial Virus Not Detected (Not Detect); SARS- CoV-2 Not Detected (Not Detecte)
[2023-01-03] MEDS: PIPERACILLIN/TAZO 4.5 GM in SODIUM CHLORIDE 0.9% 100 ML IV (18:14)
[2023-01-03 18:32] LABS: Reflexed Lactate in 2 Hours Y
[2023-01-03] MEDS: VANCOMYCIN 1,000 MG/200 ML PIGGYBACK 200 MG IV (18:55)
[2023-01-03 19:11] LABS: Hematocrit 37.2 % (41-53); Hemoglobin 12.4 g/dL (13.5-17.5); Mean Corpuscular HGB Conc 33.4 % (30-36); Mean Corpuscular Hemoglobin 29.4 PG (26-34); Platelet Count 163 X10^3/uL (150-400); Red Blood Cell Count 4.22 X10^6/uL (4.5-5.9); Red Cell Distribution Width 14.9 % (11.6-14.8)
[2023-01-03 19:14] LABS: Add Manual Diff / Slide Review YES
[2023-01-03 19:15] LABS: White Blood Cell Count 45.7 X10^3/uL (4.5-11.0)
[2023-01-03 19:25] LABS: Appearance Urine UA SL CLOUDY; Bilirubin Urine UA 1+ (NEGATIVE); Color Urine UA YELLOW; Glucose Urine UA NEGATIVE (Negative); Ketones Urine UA TRACE (NEGATIVE); Leukocyte Esterase Urine UA 1+ (NEGATIVE); Nitrite Urine UA NEGATIVE (Negative); Occult Blood Urine UA 2+ (Negative); Protein Urine UA 1+ (Negative); Specific Gravity Urine UA <=1.005 (1.000-1.035)
[2023-01-03 19:32] LABS: Total Cells Counted 100
[2023-01-03 19:33] LABS: Platelet Estimate Adequate on smear; RBC Morphology Normal Morphology; Toxic Granulation Present; Toxic Vacuolation Present
[2023-01-03 19:34] LABS: Lactate 2HR (Lactic Acid Rflx) 1.5 mmol/L (0.7-2.1)
[2023-01-03 19:45] LABS: Bacteria Urine Few (2-10); Culture Indicated Urine Specimen Cultured; Ictotest Urine Negative (Negative); RBC Urine 1-5/HPF (0-5/HPF); Squamous Epithelial Cell Urine 1-5 /HPF (0-5/HPF); Transitional Epi Cells Urine 5-10/HPF (0-5/HPF); WBC Urine >100/HPF (0-5/HPF)
[2023-01-04 09:59] LABS: Acinetobacter calcoa-baumannii Not Detected (Not Detect); Bacteroides fragilis Not Detected (Not Detect); CTX-M Resistance Not Detected (Not Detect); Candida albicans Not Detected (Not Detect); Candida auris Not Detected (Not Detect); Candida glabrata Not Detected (Not Detect); Candida krusei Not Detected (Not Detect); Candida parapsilosis Not Detected (Not Detect); Candida tropicalis Not Detected (Not Detect); Cryptococcus neoformans/gatti Not Detected (Not Detect); Enterobacter cloacae complex Not Detected (Not Detect); Enterobacterales Detected (Not Detect); Enterococcus faecalis Not Detected (Not Detect); Enterococcus faecium Not Detected (Not Detect); Haemophilus influenzae Not Detected (Not Detect); IMP Resistance Not Detected (Not Detect); KPC Resistance Not Detected (Not Detect); Klebsiella aerogenes Not Detected (Not Detect); Listeria monocytogenes Not Detected (Not Detect); NDM Resistance Not Detected (Not Detect); Neisseria meningitidis Not Detected (Not Detect); OXA-48-like Resistance Not Detected (Not Detect); Proteus species Detected (Not Detect); Pseudomonas aeruginosa Not Detected (Not Detect); Salmonella species Not Detected (Not Detect); Serratia marcescens Not Detected (Not Detect); Staphylococcus epidermidis Not Detected (Not Detect); Staphylococcus lugdunensis Not Detected (Not Detect); Staphylococcus species Not Detected (Not Detect); Stenotrophomonas maltophilia Not Detected (Not Detect); Streptococcus agalactiae (Gr B Not Detected (Not Detect); Streptococcus pneumonia Not Detected (Not Detect); Streptococcus pyogenes (Gr A) Not Detected (Not Detect); Streptococcus species Not Detected (Not Detect); VIM Resistance Not Detected (Not Detect)
== END 2023-01-03 22:25 | disposition short-term general hospital (02) ==
PROVIDERS: Emergency Medicine; Emergency Provider Emergency Medicine; Family Provider Physician Assistant; PCP Physician Assistant
DX: N20.1 Calculus of ureter (principal); N10 Acute pyelonephritis; R00.0 Tachycardia, unspecified; R50.9 Fever, unspecified; Q87.2 Congenital malformation syndromes predominantly involving limbs
CPT/HCPCS: 36415; 71260; 74177; 80053; 81001; 83605; 83690; 84145; 85007; 85025; 85610; 85730; 87040; 87077; 87086; 87154; 87186; 87633; 93005; 96365; 96367; 96375; 99284; 99291; 99292; J0131; J2405; J2543; Q9967

== ENCOUNTER → 2024-08-27 15:54 | Outpatient (CLI) | payer MEDICARE, MEDICAID, SELFPAY ==
[2022-09-12 18:49] VITALS: BMI 34.7
--- NOTE | 2024-08-27 16:00 | DI.US.S_ITS ---
PROCEDURE: US RENAL COMPLETE INDICATIONS: nephrolithiasis TECHNIQUE: Real-time scanning was performed of the kidneys and bladder, with image documentation. COMPARISON: [facility], CT, CT CHEST ABD PEL W CON, 01/03/2023, 17:45. FINDINGS: Kidneys: Kidneys are normal in size. Right kidney measures 9.9 cm long; left kidney measures 10.3 cm long. Right renal cortical thickness is 1.1 cm; left renal cortical thickness is 1.1 cm. Renal cortical echotexture is normal. No hydronephrosis or nephrolithiasis. No suspicious solid mass lesions. Inferior pole of the right kidney is not well visualized. Bladder: Pre-void bladder volume is 20 mL. Post-void residual is 0 mL. Pre- void images demonstrate no intraluminal masses or stones. On pre-void images, neither ureteral jets are noted with color Doppler interrogation. (Of note, ureteral jets may not be detectable in up to 25% of cases due to insufficient differences in specific gravity between ureteral and bladder urine). Miscellaneous: No free pelvic fluid. Cholelithiasis. IMPRESSION: The inferior pole of the right kidney is suboptimally visualized due to limited windows. This is where renal stones were seen on comparison CT. No hydronephrosis to suggest residual stone within the proximal ureter. Cholelithiasis without wall thickening or adjacent fat stranding to suggest acute cholecystitis. Dictated by: Chaparro Spears M.D. on 08/28/2024 at 13:04 Approved by: Chaparro Spears M.D. on 08/28/2024 at 13:07
== END ==
PROVIDERS: Family Provider Physician Assistant; Referring Provider Internal Medicine Nephrology; Visit Provider Internal Medicine Nephrology
DX: N20.0 Calculus of kidney (principal); R82.991 Hypocitraturia; K80.20 Calculus of gallbladder without cholecystitis without obstruction
CPT/HCPCS: 76770